=== PATIENT | male | born 1955 | race Caucasian/White ===

== ENCOUNTER → 2019-06-24 | Outpatient (CLI) | payer BC ==
--- NOTE | 2019-06-24 17:12 | CT ---
EXAMINATION TYPE: CT abdomen pelvis wo con DATE OF EXAM: 06/24/2019 COMPARISON: 05/16/2013 HISTORY: 64-year-old male Left side flank pain and dysuria. CT DLP: 1118.3 mGycm. Automated exposure control for dose reduction was used. TECHNIQUE: Contiguous axial scanning of the abdomen and pelvis without IV contrast. Coronal and sagit lynette reconstructions performed. FINDINGS: Heart normal size without pericardial effusion. Coronary vessel calcifications are present. Mild bron chial wall thickening in the visualized lower lungs. Some strandy atelectasis inferior lingula. No pleural effusion. Liver mildly enlarged at 18.9 cm. Noncontrast appearance of the liver, gallbladder, adrenal glands, k idneys, spleen, and atrophic pancreas show no gross abnormality by noncontrast technique. Specifically, no nephrolithiasis or hydronephrosis. No dilated small bowel, free fluid, or free air. No mesenteric or retroperitoneal lymphadenopathy. Normal appendix. Mild stool burden with scattered colonic diverticulosis. Greatest within the sigmoid colon. No pericolonic inflammatory change. Bladder is nondistended. Prostate gland mildly enlarged at 4.9 cm wide. Some surgical material at the right inguinal canal. Pelvic phleboliths. Patulous left inguinal canal, likely fat-containing small left indirect inguinal hernia. No abnormal fluid collection in the pelvis or pelvic lymphadenopathy. Bones: Degenerative changes at the hips. 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 Facet arth ropathy lower lumbar spine. IMPRESSION: 1. Small fat-containing left indirect inguinal hernia. 2. Mild hepatomegaly (18.9 cm). 3. Generalized colonic diverticulosis, greatest in the sigmoid colon. No evidence for acute divertic ulitis. 4. No nephrolithiasis or hydronephrosis.
== END | disposition home or self-care (01) ==
LOC: RADCTMAIN 15:42
PROVIDERS: ATTEND Internal Medicine
DX: K40.90 Unilateral inguinal hernia, without obstruction or gangrene, not specified as recurrent (principal); K57.30 Diverticulosis of large intestine without perforation or abscess without bleeding; R16.0 Hepatomegaly, not elsewhere classified; Z88.8 Allergy status to other drugs, medicaments and biological substances
CPT/HCPCS: 74176

== ENCOUNTER → 2019-11-15 | Outpatient (CLI) | payer BC ==
--- NOTE | 2019-11-15 09:07 | CT ---
EXAMINATION TYPE: CT abdomen pelvis wo con DATE OF EXAM: 11/15/2019 COMPARISON: 06/24/2019 HISTORY: Left sided abdominal pain CT DLP: 1006.2 mGycm Examination of the solid and hollow viscera is limited given the lack of contrast. FINDINGS: LUNG BASES: No evidence for nodule. No evidence for infiltrate. LIVER/GB: The gallbladder is unremarkable. No space-occupying hepatic lesion. PANCREAS: No pancreatic mass identified. No inflammatory process seen. SPLEEN: No evidence for splenomegaly. No intrasplenic lesions seen. ADRENALS: No adrenal nodules identified. No evidence for thickening. KIDNEYS: No evidence for renal mass. No nephrolithiasis. No hydronephrosis. BOWEL: Appendix has a normal appearance. No evidence of bowel obstruction. No inflammatory process. Lymph nodes: No evidence for adenopathy greater than 1 cm. Abdominal aorta: Atheromatous changes seen. No evidence for aneurysm. Genital organs: No significant abnormality. Other: No significant abnormality. IMPRESSION: 1. No evidence for left-sided nephrolithiasis or hydronephrosis. No acute process identified to accou nt for the patient's symptoms.
== END | disposition home or self-care (01) ==
LOC: RADCTMAIN 07:53
PROVIDERS: ATTEND Internal Medicine
DX: R10.9 Unspecified abdominal pain (principal)
CPT/HCPCS: 74176

== ENCOUNTER 2019-11-17 09:06 | Inpatient (IN) | payer BC ==
[2019-11-17] MEDS ORDERED: SODIUM CHLORIDE 0.9% 1,000 ML IV STA (09:34)
--- NOTE | 2019-11-17 09:38 | ED ---
General Adult HPI - General Chief complaint: Neuro Symptoms/Deficit Stated complaint: Facial numbness, dizzy Time Seen by Provider: 11/17/19 09:28 Source: patient, family, RN notes reviewed Mode of arrival: wheelchair Limitations: no limitations - History of Present Illness Initial comments: Patient is a pleasant 6 he 4-year-old male presenting to the emergency Department with chief complaint of paresthesias. Onset of symptoms was close to 2 hours ago. Symptoms have greatly improved however not resolved. Patient has paresthesias of his bilateral face and forehead as well as bilateral hands. Patient does feel a little bit lightheaded. Patient did have some chest discomfort described as an ache that lasted around 15 minutes and has resolved. Patient has associated headache. Headache was not sudden onset and was never severe or even moderate. Headache was only light and is now almost resolved. No associated dyspnea. No leg pain or leg swelling. - Related Data Home Medications Medication Instructions Recorded Confirmed Metoprolol Tartrate [Lopressor] 12.5 mg PO BID 10/28/16 11/17/19 Nitroglycerin Sl Tabs [Nitrostat] 0.4 mg SUBLINGUAL DIRECTED PRN 10/28/16 11/17/19 Aspirin EC [Ecotrin Low Dose] 81 mg PO DAILY 11/17/19 11/17/19 Dapagliflozin Propanediol [Farxiga] 10 mg PO DAILY 11/17/19 11/17/19 Lisinopril [Zestril] 5 mg PO DAILY 11/17/19 11/17/19 Rosuvastatin [Crestor] 10 mg PO HS 11/17/19 11/17/19 Tamsulosin [Flomax] 0.4 mg PO DAILY PRN 11/17/19 11/17/19 cycloSPORINE [Restasis] 1 drop BOTH EYES BID PRN 11/17/19 11/17/19 metFORMIN HCL [metFORMIN HCL ER] 500 mg PO BID 11/17/19 11/17/19 Previous Rx's Medication Instructions Recorded Omeprazole 20 mg PO DAILY #30 cap 04/15/16 Allergies Allergy/AdvReac Type Severity Reaction Status Date / Time No Known Allergies Allergy Verified 11/17/19 10:19 Review of Systems ROS Statement: Those systems with pertinent positive or pertinent negative responses have been documented in the HPI. ROS Other: All systems not noted in ROS Statement are negative. Constitutional: Denies: fever Eyes: Denies: eye pain ENT: Denies: ear pain Respiratory: Denies: cough, dyspnea Cardiovascular: Reports: as per HPI Endocrine: Denies: fatigue Gastrointestinal: Denies: abdominal pain Genitourinary: Denies: dysuria Musculoskeletal: Denies: back pain Skin: Denies: rash Neurological: Reports: as per HPI, paresthesias. Denies: weakness, confusion Past Medical History Past Medical History: Diabetes Mellitus, Eye Disorder, Hyperlipidemia, Hypertension Additional Past Medical History / Comment(s): Recent bronchitis-completed ZPak, NIDDM, cholesterol is alittle high but not on RX yet. History of Any Multi-Drug Resistant Organisms: None Reported Past Surgical History: Hernia Repair, Orthopedic Surgery, Tonsillectomy Additional Past Surgical History / Comment(s): R thumb arthroplasty, Cervical vertebral crushed and surgically repaired, L foot spur removed, L knee arthroscopy, colonoscopy, bilateral eyelid surgery, left cataract removed Past Anesthesia/Blood Transfusion Reactions: No Reported Reaction Past Psychological History: No Psychological Hx Reported Smoking Status: Former smoker Past Alcohol Use History: None Reported Past Drug Use History: Marijuana - Past Family History Father Family Medical History: Vascular Disorder Additional Family Medical History / Comment(s): Father had TB. He is . Mother Family Medical History: Diabetes Mellitus Additional Family Medical History / Comment(s): Mother had TB. She at age 75 yrs. General Exam Limitations: no limitations General appearance: alert, in no apparent distress Head exam: Present: normocephalic Eye exam: Present: normal appearance, PERRL, EOMI. Absent: nystagmus ENT exam: Present: normal oropharynx Neck exam: Present: normal inspection Respiratory exam: Present: normal lung sounds bilaterally Cardiovascular Exam: Present: regular rate, normal rhythm Expanded Peripheral pulses: 2+: Radial (R), Radial (L), Posterior Tibialis (R), Posterior Tibialis (L) GI/Abdominal exam: Present: soft. Absent: distended, tenderness Extremities exam: Present: normal inspection. Absent: pedal edema, calf tenderness Neurological exam: Present: alert, oriented X3, CN II-XII intact. Absent: motor sensory deficit Expanded Neurological exam: Present: protecting the airway Speech: Present: fluid speech Cranial nerves: EOM's Intact: Normal, Facial Sensation: Normal Sensory exam: Upper Extremity Light Touch: Normal, Lower Extremity Light Touch: Normal Motor strength exam: RUE: 5, LUE: 5, RLE: 5, LLE: 5 Eye Response: (4) open spontaneously Motor Response: (6) obeys commands Verbal Response: (5) oriented Psychiatric exam: Present: normal affect, normal mood Skin exam: Present: normal color Course Vital Signs 11/17/19 11/17/19 11/17/19 09:12 09:25 11:18 Temperature 98.2 F 98.8 F Pulse Rate 85 81 67 Respiratory 18 16 16 Rate Blood Pressure 155/82 149/89 136/77 O2 Sat by Pulse 95 93 L 96 Oximetry Medical Decision Making - Medical Decision Making Patient reevaluated and resting comfortably in bed. Patient is near symptom- free. Patient family updated on results and plan. Case discussed in detail with Dr. Rivas, who will admit for Dr. Alvares - Lab Data Result diagrams: 11/17/19 09:55 11/17/19 09:34 Lab Results 11/17/19 11/17/19 11/17/19 Range/Units 09:34 09:34 09:55 WBC 9.1 (3.8-10.6) k/uL RBC 5.07 (4.30-5.90) m/uL Hgb 15.2 (13.0-17.5) gm/dL Hct 45.8 (39.0-53.0) % MCV 90.4 (80.0-100.0) fL MCH 30.0 (25.0-35.0) pg MCHC 33.2 (31.0-37.0) g/dL RDW 12.9 (11.5-15.5) % Plt Count 265 (150-450) k/uL Neutrophils % 74 % Lymphocytes % 20 % Monocytes % 4 % Eosinophils % 1 % Basophils % 1 % Neutrophils # 6.7 (1.3-7.7) k/uL Lymphocytes # 1.8 (1.0-4.8) k/uL Monocytes # 0.4 (0-1.0) k/uL Eosinophils # 0.1 (0-0.7) k/uL Basophils # 0.1 (0-0.2) k/uL PT (9.0-12.0) sec INR (<1.2) APTT (22.0-30.0) sec Sodium 138 (137-145) mmol/L Potassium 4.2 (3.5-5.1) mmol/L Chloride 106 (98-107) mmol/L Carbon Dioxide 23 (22-30) mmol/L Anion Gap 9 mmol/L BUN 18 (9-20) mg/dL Creatinine 0.81 (0.66-1.25) mg/dL Est GFR (CKD-EPI)AfAm >90 (>60 ml/min/1.73 sqM) Est GFR (CKD-EPI)NonAf >90 (>60 ml/min/1.73 sqM) Glucose 235 H (74-99) mg/dL Calcium 9.3 (8.4-10.2) mg/dL Total Bilirubin 0.7 (0.2-1.3) mg/dL AST 27 (17-59) U/L ALT 26 (4-49) U/L Alkaline Phosphatase 81 (38-126) U/L Creatine Kinase 52 L (55-170) U/L Troponin I <0.012 (0.000-0.034) ng/mL Total Protein 6.4 (6.3-8.2) g/dL Albumin 3.7 (3.5-5.0) g/dL 11/17/19 Range/Units 09:55 WBC (3.8-10.6) k/uL RBC (4.30-5.90) m/uL Hgb (13.0-17.5) gm/dL Hct (39.0-53.0) % MCV (80.0-100.0) fL MCH (25.0-35.0) pg MCHC (31.0-37.0) g/dL RDW (11.5-15.5) % Plt Count (150-450) k/uL Neutrophils % % Lymphocytes % % Monocytes % % Eosinophils % % Basophils % % Neutrophils # (1.3-7.7) k/uL Lymphocytes # (1.0-4.8) k/uL Monocytes # (0-1.0) k/uL Eosinophils # (0-0.7) k/uL Basophils # (0-0.2) k/uL PT 10.1 (9.0-12.0) sec INR 0.9 (<1.2) APTT 24.8 (22.0-30.0) sec Sodium (137-145) mmol/L Potassium (3.5-5.1) mmol/L Chloride (98-107) mmol/L Carbon Dioxide (22-30) mmol/L Anion Gap mmol/L BUN (9-20) mg/dL Creatinine (0.66-1.25) mg/dL Est GFR (CKD-EPI)AfAm (>60 ml/min/1.73 sqM) Est GFR (CKD-EPI)NonAf (>60 ml/min/1.73 sqM) Glucose (74-99) mg/dL Calcium (8.4-10.2) mg/dL Total Bilirubin (0.2-1.3) mg/dL AST (17-59) U/L ALT (4-49) U/L Alkaline Phosphatase (38-126) U/L Creatine Kinase (55-170) U/L Troponin I (0.000-0.034) ng/mL Total Protein (6.3-8.2) g/dL Albumin (3.5-5.0) g/dL - Radiology Data Radiology results: report reviewed (computed tomography scan of brain reveals no acute process), image reviewed (Chest x-ray shows no acute intrathoracic abnormality) Disposition Clinical Impression: Chest pain, Paresthesia Disposition: ADMITTED IP TO THIS HOSP Is patient prescribed a controlled substance at d/c from ED?: No Referrals: Paddy Alvares MD [Primary Care Provider] - 1-2 days Decision Time: 11:35
[2019-11-17 10:09] LABS: Basophils # (A) 0.1 k/uL (0-0.2); Basophils % (A) 1 %; Eosinophils # (A) 0.1 k/uL (0-0.7); Eosinophils % (A) 1 %; HCT 45.8 % (39.0-53.0); HGB 15.2 gm/dL (13.0-17.5); Lymphocytes # (A) 1.8 k/uL (1.0-4.8); Lymphocytes % (A) 20 %; MCHC 33.2 g/dL (31.0-37.0); MCV 90.4 fL (80.0-100.0); Mean Platelet Volume 7.1; Monocytes # (A) 0.4 k/uL (0-1.0); Monocytes % (A) 4 %; Neutrophils # (A) 6.7 k/uL (1.3-7.7); Neutrophils % (A) 74 %; Platelet Count 265 k/uL (150-450); RBC 5.07 m/uL (4.30-5.90); RDW 12.9 % (11.5-15.5); WBC 9.1 k/uL (3.8-10.6)
[2019-11-17 10:18] LABS: ALT 26 U/L (4-49); AST 27 U/L (17-59); African American GFR (CKD) >90 (>60 ml/min/1.73 sqM); Albumin 3.7 g/dL (3.5-5.0); Alkaline Phosphatase 81 U/L (38-126); Anion Gap 9 mmol/L; Blood Urea Nitrogen 18 mg/dL (9-20); Calcium 9.3 mg/dL (8.4-10.2); Carbon Dioxide 23 mmol/L (22-30); Chloride 106 mmol/L (98-107); Creatine Kinase 52 U/L (55-170); Glucose 235 mg/dL (74-99); Non-African American GFR(CKD) >90 (>60 ml/min/1.73 sqM); Potassium 4.2 mmol/L (3.5-5.1); Sodium 138 mmol/L (137-145); Total Bilirubin 0.7 mg/dL (0.2-1.3); Total Protein 6.4 g/dL (6.3-8.2)
[2019-11-17 10:25] LABS: INR 0.9 (<1.2); Partial Thromboplastin Time 24.8 sec (22.0-30.0); Prothrombin Time 10.1 sec (9.0-12.0)
--- NOTE | 2019-11-17 10:28 | XR ---
EXAMINATION TYPE: XR chest 2V DATE OF EXAM: 11/17/2019 HISTORY: Chest pain. REFERENCE: Previous study dated 04/13/2016. FINDINGS: The patient has taken a relatively poor inspiration. Allowing for this the lungs appear asia ar. Pleural spaces are clear. The heart is not enlarged. IMPRESSION: ALLOWING FOR POOR INSPIRATION, NO DEFINITE ACUTE INTRATHORACIC ABNORMALITY IS SEEN.
--- NOTE | 2019-11-17 10:32 | CT ---
EXAMINATION TYPE: CT brain wo con DATE OF EXAM: 11/17/2019 COMPARISON: NONE HISTORY: facial numbness bilateral CT DLP: 1070.4 mGycm Automated exposure control for dose reduction was used. FINDINGS: Central structures are midline. There is no evidence of hydrocephalus. No acute focal lesion, mass ef fect or midline shift is seen. I do not see evidence of intracranial blood. Visualized portions of the paranasal sinuses and mastoids are clear. The bony calvarium is intact. IMPRESSION: NO ACUTE INTRACRANIAL ABNORMALITY.
[2019-11-17] MEDS ORDERED: ASPIRIN 81 MG PO STA (11:35)
[2019-11-17] MEDS ORDERED: NITROGLYCERIN SL TABS 0.4 MG TAB SUBLINGUAL PRN ×2 (11:36→14:53)
[2019-11-17] MEDS ORDERED: cycloSPORINE 0.05% OPHTH 0.4 ML DROPERETTE BOTH EYES PRN (14:53)
[2019-11-17] MEDS ORDERED: TAMSULOSIN 0.4 MG CAP.ER.24H PO PRN (14:53)
--- NOTE | 2019-11-17 15:02 | P.HPIM ---
History of Present Illness Patient very pleasant 64-year-old gentleman came in the with complaints of bilateral paresthesias in both arms as well as some hot flashes kind of sensation in the face. His symptoms started today morning and looked up his symptoms online and after the check his blood sugars which are within normal limits and was concerned about TIA or a stroke came to ER. In ER patient did complain of mild pain in the left side of the chest very brief without any diaphoresis nausea lightheadedness, nonpleuritic. 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 Patient denied any orthopnea proximal nocturnal dyspnea Review of Systems REVIEW OF SYSTEMS: CONSTITUTIONAL: No fever, no malaise, no fatigue. HEENT: No recent visual problems or hearing problems. Denied any sore throat. CARDIOVASCULAR: No orthopnea, PND, no palpitations, no syncope. PULMONARY: No shortness of breath, no cough, no hemoptysis. GASTROINTESTINAL: No diarrhea, no nausea, no vomiting, no abdominal pain. NEUROLOGICAL: No headaches, no weakness. HEMATOLOGICAL: Denies any bleeding or petechiae. GENITOURINARY: Denies any burning micturition, frequency, or urgency. MUSCULOSKELETAL/RHEUMATOLOGICAL: Denies any joint pain, swelling, or any muscle pain. ENDOCRINE: Denies any polyuria or polydipsia. The rest of the 14-point review of systems is negative. Past Medical History Past Medical History: Diabetes Mellitus, Eye Disorder, Hyperlipidemia, Hypert ension Additional Past Medical History / Comment(s): Recent bronchitis, NIDDM, History of Any Multi-Drug Resistant Organisms: None Reported Past Surgical History: Heart Catheterization With Stent, Hernia Repair, Orthopedic Surgery, Tonsillectomy Additional Past Surgical History / Comment(s): R thumb arthroplasty, Cervical vertebral crushed and surgically repaired, L foot spur removed, L knee arthr oscopy, colonoscopy, bilateral eyelid surgery, left cataract removed, 2 heart stents Past Anesthesia/Blood Transfusion Reactions: No Reported Reaction Date of Last Stent Placement:: 2015 Past Psychological History: No Psychological Hx Reported Additional Psychological History / Comment(s): Pt resides with his spouse. He is independent. He drives. Smoking Status: Former smoker Past Alcohol Use History: None Reported Additional Past Alcohol Use History / Comment(s): Pt states he started smoking at age 15 yrs. (1970) and quit in 1995. Past Drug Use History: Marijuana Additional Drug Use History / Comment(s): Pt states he will smoke marijuana on occasion. - Past Family History Father Family Medical History: Vascular Disorder Additional Family Medical History / Comment(s): Father had TB. He is . Mother Family Medical History: Diabetes Mellitus Additional Family Medical History / Comment(s): Mother had TB. She at age 75 yrs. Medications and Allergies Home Medications Medication Instructions Recorded Confirmed Type Omeprazole 20 mg PO DAILY #30 cap 04/15/16 11/17/19 Rx Metoprolol Tartrate [Lopressor] 12.5 mg PO BID 10/28/16 11/17/19 History Nitroglycerin Sl Tabs [Nitrostat] 0.4 mg SUBLINGUAL DIRECTED PRN 10/28/16 11/17/19 History Aspirin EC [Ecotrin Low Dose] 81 mg PO DAILY 11/17/19 11/17/19 History Dapagliflozin Propanediol [Farxiga] 10 mg PO DAILY 11/17/19 11/17/19 History Lisinopril [Zestril] 5 mg PO DAILY 11/17/19 11/17/19 History Rosuvastatin [Crestor] 10 mg PO HS 11/17/19 11/17/19 History Tamsulosin [Flomax] 0.4 mg PO DAILY PRN 11/17/19 11/17/19 History cycloSPORINE [Restasis] 1 drop BOTH EYES BID PRN 11/17/19 11/17/19 History metFORMIN HCL [metFORMIN HCL ER] 500 mg PO BID 11/17/19 11/17/19 History Allergies Allergy/AdvReac Type Severity Reaction Status Date / Time No Known Allergies Allergy Verified 11/17/19 10:19 Physical Exam Vitals: Vital Signs Temp Pulse Pulse Resp BP BP Pulse Ox 11/17/19 14:04 96 11/17/19 13:10 98.2 F 61 18 142/87 96 11/17/19 11:18 67 16 136/77 96 11/17/19 09:25 98.8 F 81 16 149/89 93 L 11/17/19 09:12 98.2 F 85 18 155/82 95 Intake and Output 11/16/19 11/17/19 11/17/19 22:59 06:59 14:59 Other: Voiding Method Toilet Weight 106.141 kg PHYSICAL EXAMINATION: GENERAL: The patient is alert and oriented x3, not in any acute distress. Well developed, well nourished. HEENT: Pupils are round and equally reacting to light. EOMI. No scleral icterus. No conjunctival pallor. Normocephalic, atraumatic. No pharyngeal erythema. No thyromegaly. CARDIOVASCULAR: S1 and S2 present. No murmurs, rubs, or gallops. PULMONARY: Chest is clear to auscultation, no wheezing or crackles. ABDOMEN: Soft, nontender, nondistended, normoactive bowel sounds. No palpable organomegaly. MUSCULOSKELETAL: No joint swelling or deformity. EXTREMITIES: No cyanosis, clubbing, or pedal edema. NEUROLOGICAL: Gross neurological examination did not reveal any focal deficits. SKIN: No rashes. Results CBC & Chem 7: 11/17/19 09:55 11/17/19 09:34 Labs: Abnormal Lab Results - Last 24 Hours (Table) 11/17/19 Range/Units 09:34 Glucose 235 H (74-99) mg/dL Creatine Kinase 52 L (55-170) U/L Thrombosis Risk Factor Assmnt - Choose All That Apply Any of the Below Risk Factors Present?: No Other Risk Factors: Yes Assessment and Plan Plan: -Chest pain: Atypical will rule out unstable angina and acute coronary syndromes 2 more sets of troponins and EKGs will be obtained. Both EKG and first set of troponin were negative. Patient's symptomatology is not consistent with stroke patient appears to have peripheral neuropathy from his diabetes with us -Type 2 diabetes mellitus patient was recently started on Farxiga because of which patient was having some stomach upset symptoms and he was wondering wh ether the present symptoms of GERD are related to that because of which patient doesn't want to take this medication and wanted go back on sulfonylureas I will let his primary doctor address this as an outpatient. Patient will be started on sliding scale and continue with metformin here -Diabetic peripheral neuropathy -Hyperlipidemia -Benign prostatic hypertrophy -Coronary artery disease with stent in the past and a stress test about any ago.
[2019-11-17 16:28] LABS: Glucose,Whole Blood 198 mg/dL (75-99)
[2019-11-17] MEDS: INSULIN ASPART (NovoLOG) 100 UNIT/ML VIAL SQ SCH ×2 (16:51→22:02)
[2019-11-17 21:06] LABS: Glucose,Whole Blood 254 mg/dL (75-99)
[2019-11-17] MEDS: METOPROLOL TARTRATE 12.5 MG TAB PO SCH (22:02)
[2019-11-17] MEDS: ATORVASTATIN 20 MG TAB PO SCH (22:02)
[2019-11-17] MEDS: metFORMIN 500 MG TAB PO SCH (22:04)
[2019-11-18 06:36] LABS: Cholesterol 163 mg/dL (<200); HDL Cholesterol 33 mg/dL (40-60); LDL Cholesterol,Calculated 81 mg/dL (0-99); Triglycerides 247 mg/dL (<150)
[2019-11-18 07:04] LABS: Glucose,Whole Blood 195 mg/dL (75-99)
[2019-11-18] MEDS ORDERED: AMINOPHYLLINE 500 MG/20 ML VIAL IV PRN (07:43)
[2019-11-18] MEDS ORDERED: SODIUM CHLORIDE 0.9% IV ONE (07:43)
[2019-11-18] MEDS ORDERED: CAFFEINE CITRATE 60 MG/3 ML VIAL IV PRN (07:43)
[2019-11-18] MEDS ORDERED: DIPYRIDAMOLE IV ONE (07:43)
--- NOTE | 2019-11-18 08:10 | CONS ---
CONSULTATION Mr. Valadez is a 64-year-old male known history of coronary artery disease who presented with tingling in the hand, fullness in the head and brief episode of chest discomfort. He has a known history of coronary artery disease who presented to the hospital in March of 2016 with evidence of chest discomfort. At that time underwent cardiac catheterization that revealed significant obstructive disease involving the LAD and the PLV and underwent successful stenting of both vessels. He has done well from the cardiac standpoint with no symptoms of chest pain. He is followed on a regular basis by Dr. Henson in regard to his cardiac status. Yesterday, he took his Farxiga, but did not have breakfast and subsequently complained a couple hours after tingling in the hand, fullness in the chest and a brief episode of chest discomfort. He has no dyspnea. No dizziness or palpitation. No syncope. No PND, orthopnea, or peripheral edema. Patient is reasonably active physically, but he had a prior history of cervical surgery and recent hernia surgery. According to him, he had a stress test about a year ago that was unremarkable. He has no history of PND, orthopnea, or peripheral edema. No malignant arrhythmia. His coronary risk factors are remarkable for diabetes, hyperlipidemia, and hypertension. He is a nonsmoker. MEDICATIONS: His medications include aspirin, Farxiga, Zestril 5 mg daily, Lopressor 12.5 mg daily, omeprazole 20 mg daily, Crestor 10 mg daily, Flomax 0.4 mg daily, Restasis and metformin 500 mg twice a day. REVIEW OF SYSTEMS: RESPIRATORY SYSTEM: He has no history of documented asthma, emphysema or bronchitis. GI SYSTEM: No recent GI bleed. No peptic ulcer disease. SYSTEM: No dysuria or hematuria. NERVOUS SYSTEM: No history of stroke or seizure. PHYSICAL EXAMINATION: He is a 64-year-old male, alert, oriented, in no apparent distress. Blood pressure 148/80 with the heart rate in the 60s. HEAD: Normocephalic. EYES: Sclerae anicteric. NECK: Good carotid upstroke. No bruit. No jugular venous distention. LUNGS: Clear to auscultation. HEART: Regular rate and rhythm. S1, S2. No S3. No S4. No rub. ABDOMEN: Soft, nontender. Positive bowel sounds. No organomegaly. EXTREMITIES: No edema. Intact distal pulses. LAB DATA: Lab data revealed troponin less than 0.012. BUN and creatinine of 18 and 0.81. Hemoglobin of 15.2. EKG revealed a sinus mechanism with right bundle branch block. IMPRESSION: 1. Tingling in the fingers with paresthesia, most likely related to cervical radiculopathy, could be exacerbated by an episode of hypoglycemia. 2. Episode of chest discomfort, has atypical features for ischemic heart disease probably noncardiac. 3. History of coronary artery disease, status post percutaneous revascularization in 2016. 4. History of hypertension. 5. Hyperlipidemia. 6. Diabetes mellitus. RECOMMENDATION: I would recommend to obtain echocardiogram with Doppler as well as an myocardial perfusion imaging. If there is no evidence of inducible ischemia, then no further cardiac workup will be needed. Those findings and recommendations were discussed with the patient and he is full understanding and agreement. Thank you for this consult. We will follow with you. CARLINE / IJN: [id number] /
[2019-11-18] MEDS ORDERED: ASPIRIN 81 MG PO SCH (09:00)
[2019-11-18] MEDS ORDERED: ASPIRIN 325 MG TAB PO SCH (09:00)
[2019-11-18] MEDS: INSULIN ASPART (NovoLOG) 100 UNIT/ML VIAL SQ SCH ×4 (09:23→20:42)
[2019-11-18] MEDS: METOPROLOL TARTRATE 12.5 MG TAB PO SCH ×2 (11:33→20:41)
[2019-11-18] MEDS: metFORMIN 500 MG TAB PO SCH ×2 (11:34→20:42)
[2019-11-18] MEDS: PANTOPRAZOLE 40 MG TABLET PO SCH (11:34)
[2019-11-18] MEDS: LISINOPRIL 5 MG TAB PO SCH (11:34)
[2019-11-18 12:00] LABS: Glucose,Whole Blood 244 mg/dL (75-99)
--- NOTE | 2019-11-18 12:16 | NM ---
EXAMINATION TYPE: NM stress persantine cardiolit DATE OF EXAM: 11/18/2019 COMPARISON: NONE HISTORY: Chest pain TECHNIQUE: After the intravenous administration of 10.67 mCi Tc 99m Sestamibi - Cardiolite resting S PECT images acquired 65 minutes post injection. The patient received 0.4mg Lexiscan, 26.1 mCi Tc 99m Sestamibi - Stress images obtained [address] injection FINDINGS: Review of stress and rest SPECT images stress-induced decreased perfusion lateral wall and cardiac ap ex felt to reflect stress-induced ischemia. Correlate clinically. Gated analysis shows normal wall mo tion with an estimated left ventricular ejection fraction of 54 %. IMPRESSION: stress-induced decreased perfusion lateral wall and cardiac apex felt to reflect stress-induced ische ruma. Correlate clinically.
[2019-11-18] MEDS ORDERED: ALPRAZolam 0.5 MG TAB PO PRN (12:59)
[2019-11-18] MEDS ORDERED: ALPRAZolam 0.25 MG TAB PO PRN (12:59)
[2019-11-18] MEDS ORDERED: SODIUM CHLORIDE 0.9% 1,000 ML in EMPTY BAG 1 BAG IV ONE (12:59)
--- NOTE | 2019-11-18 13:00 | EST ---
EXERCISE STRESS DATE OF SERVICE: 11/18/2019 AGE: 64 SEX: Male HT: 73" WT: 234 pounds PROTOCOL: Persantine Cardiolite STAGE: DURATION OF EXERCISE: HEART RATE REST: 66 BLOOD PRESSURE REST: 143/88 MAXIMUM HEART RATE ACHIEVED: 93 MAXIMUM BLOOD PRESSURE: 149/92 85% MPHR: 100% MPHR: METS: INDICATIONS: Chest pain. CLINICAL INFORMATION: Baseline rhythm is a sinus mechanism, rate of 66, right bundle branch block. Baseline blood pressure 143/88 mmHg. Patient received an infusion of dipyridamole per protocol. Electrocardiographic monitoring revealed no evidence of diagnostic ischemic ST deviation. Cardiolite was injected at peak infusion. CONCLUSION: 1. Nondiagnostic electrocardiograph stress testing. 2. Nuclear images will be reported separately. MMODL / IJN: [id number] /
--- NOTE | 2019-11-18 14:47 | P.PN ---
Subjective Progress Note Date: 11/18/19 Principal diagnosis: Patient very pleasant 64-year-old gentleman came in the with complaints of bilateral paresthesias in both arms as well as some hot flashes kind of sensation in the face. His symptoms started today morning and looked up his symptoms online and after the check his blood sugars which are within normal limits and was concerned about TIA or a stroke came to ER. In ER patient did complain of mild pain in the left side of the chest very brief without any diaph oresis nausea lightheadedness, nonpleuritic. Because of this patient is being admitted to rule out acute coronary syndromes patient EKG did not show any acute ST-T wave changes there is some) until branch block changes patient had a stress test about any ago with his certified medical biller which did not show any inducible ischemia. Patient denied any orthopnea proximal nocturnal dyspnea. 11/18/2019 Patient is sitting up in bed in no acute distress and underwent a stress test today with cardiology showing stress-induced decreased perfusion of the lateral wall and cardiac apex and possibly refracts some stress-induced ischemia. Patient is scheduled to undergo cardiac catheterization in the morning. Cardiology is following closely. Repeat troponins were negative. Currently patient denies any chest pain, shortness of breath, or palpitations. Patient is afebrile. Patient denies any nausea or vomiting and has been tolerating diet. Blood sugars continue to be slightly elevated and will continue with sliding scale and treat accordingly. Objective - Vital Signs Vital signs: Vital Signs Temp 98.7 F 11/18/19 12:00 Pulse 84 11/18/19 12:00 Resp 18 11/18/19 12:00 BP 146/74 11/18/19 12:00 Pulse Ox 95 11/18/19 12:00 Intake & Output 11/17/19 11/18/19 11/18/19 18:59 06:59 18:59 Weight 106.141 kg 106.14 kg Other: Voiding Method Toilet Toilet Toilet # Voids 1 - Exam GENERAL: The patient is alert and oriented x3, not in any acute distress. Well developed, well nourished. HEENT: Pupils are round and equally reacting to light. EOMI. No scleral icterus. No conjunctival pallor. Normocephalic, atraumatic. No pharyngeal erythema. No thyromegaly. CARDIOVASCULAR: S1 and S2 present. No murmurs, rubs, or gallops. PULMONARY: Chest is clear to auscultation, no wheezing or crackles. ABDOMEN: Soft, nontender, nondistended, normoactive bowel sounds. No palpable organomegaly. MUSCULOSKELETAL: No joint swelling or deformity. EXTREMITIES: No cyanosis, clubbing, or pedal edema. NEUROLOGICAL: Gross neurological examination did not reveal any focal deficits. SKIN: No rashes. - Labs CBC & Chem 7: 11/17/19 09:55 11/17/19 09:34 Labs: Abnormal Lab Results - Last 24 Hours (Table) 11/17/19 11/17/19 11/18/19 Range/Units 16:26 20:55 05:33 POC Glucose (mg/dL) 198 H 254 H (75-99) mg/dL Triglycerides 247 H (<150) mg/dL HDL Cholesterol 33 L (40-60) mg/dL 11/18/19 11/18/19 Range/Units 07:02 11:59 POC Glucose (mg/dL) 195 H 244 H (75-99) mg/dL Triglycerides (<150) mg/dL HDL Cholesterol (40-60) mg/dL Assessment and Plan Assessment: -Chest pain: Atypical will rule out unstable angina and acute coronary syndromes 2 more sets of troponins and EKGs will be obtained. Both EKG and first set of troponin were negative. Patient's symptomatology is not consistent with stroke. patient appears to have peripheral neuropathy from his diabetes mellitus -Type 2 diabetes mellitus patient was recently started on Farxiga because of which patient was having some stomach upset symptoms and he was wondering whether the present symptoms of GERD are related to that because of which patient doesn't want to take this medication and wanted go back on sulfonylureas I will let his primary doctor address this as an outpatient. Patient will be started on sliding scale and continue with metformin here -Diabetic peripheral neuropathy -Hyperlipidemia -Benign prostatic hypertrophy -Coronary artery disease with stent in the past and a stress test about 1 year ago. Plan: Patient underwent stress test showing decreased perfusion of the lateral wall and cardiac apex with some possible stress-induced ischemia and patient will be undergoing a cardiac catheterization in the morning. Cardiology is following closely. Further recommendations to follow. Possible discharge in 24-48 hours.
[2019-11-18 16:36] LABS: Glucose,Whole Blood 252 mg/dL (75-99)
[2019-11-18 18:30] LABS: Hemoglobin A1C 9.7 % (4.0-6.0)
[2019-11-18 20:04] LABS: Glucose,Whole Blood 249 mg/dL (75-99)
[2019-11-18] MEDS: ATORVASTATIN 20 MG TAB PO SCH (20:41)
[2019-11-19] MEDS ORDERED: ASPIRIN 81 MG PO ONE (06:00)
[2019-11-19] MEDS: METOPROLOL TARTRATE 12.5 MG TAB PO SCH (06:30)
[2019-11-19] MEDS: PANTOPRAZOLE 40 MG TABLET PO SCH (06:30)
[2019-11-19] MEDS: LISINOPRIL 5 MG TAB PO SCH (06:30)
[2019-11-19 06:41] LABS: Glucose,Whole Blood 205 mg/dL (75-99)
[2019-11-19] MEDS: metFORMIN 500 MG TAB PO SCH (07:18)
[2019-11-19] MEDS: INSULIN ASPART (NovoLOG) 100 UNIT/ML VIAL SQ SCH ×5 (07:18→20:54)
[2019-11-19] MEDS ORDERED: LIDOCAINE 1% INJ 10MG/ML (20 ML MDV) ONE (07:36)
[2019-11-19] MEDS ORDERED: IV FLUID CONTINUATION 500 ML IV ONE (07:45)
[2019-11-19] MEDS ORDERED: HEPARIN SODIUM 1,000 UN/ML (10ML VL) ONE (07:51)
[2019-11-19] MEDS ORDERED: fentaNYL (PF) 50 MCG/ML 2 ML AMP ONE (07:51)
[2019-11-19] MEDS ORDERED: VERAPAMIL 2.5 MG/ML 2 ML AMP ONE (07:51)
[2019-11-19] MEDS ORDERED: fentaNYL (PF) 50 MCG/ML 2 ML AMP IV ONE (08:12)
[2019-11-19] MEDS ORDERED: LIDOCAINE 1% INJ 10MG/ML (20 ML MDV) SQ ONE (08:15)
[2019-11-19] MEDS ORDERED: VERAPAMIL SYRINGE (5 MG/10 ML) INTRAARTER ONE (08:18)
[2019-11-19] MEDS ORDERED: CLOPIDOGREL 75 MG TAB ONE (08:29)
[2019-11-19] MEDS ORDERED: BIVALIRUDIN BOLUS 250 MG/50 ML IV ONE (08:29)
[2019-11-19] MEDS ORDERED: BIVALIRUDIN 250 MG in SODIUM CHLORIDE 0.9% 50 ML IV ONE (08:30)
[2019-11-19] MEDS ORDERED: CLOPIDOGREL 75 MG TAB PO ONE (08:31)
[2019-11-19] MEDS ORDERED: NITROGLYCERIN 1000MCG/10ML SYRINGE INTRACORON ONE (08:39)
[2019-11-19] MEDS: NITROGLYCERIN 1000MCG/10ML SYRINGE INTRACORON ONE ×2 (08:40→08:52)
[2019-11-19] MEDS ORDERED: IOPAMIDOL-370 125ML BTL INJ ONE (08:41)
[2019-11-19] MEDS ORDERED: ADENOSINE 90 MG in SODIUM CHLORIDE 0.9% 60 ML IVP ONE (08:54)
[2019-11-19] MEDS ORDERED: IOPAMIDOL-370 100ML BTL INJ ONE (09:00)
[2019-11-19] MEDS ORDERED: RX INFO: IV CONTRAST WAS GIVEN 1 EACH MISC MISCELLANE PRN (09:16)
[2019-11-19] MEDS ORDERED: MAG HYDROX/AL HYDROX/SIMETH 30 ML CUP PO PRN (09:16)
[2019-11-19] MEDS ORDERED: NITROGLYCERIN SL TABS 0.4 MG TAB SUBLINGUAL PRN (09:16)
[2019-11-19] MEDS ORDERED: ATROPINE SULFATE 0.1 MG/ML 10ML SYRINGE IV PRN (09:16)
[2019-11-19] MEDS ORDERED: ZOLPIDEM 5 MG TAB PO PRN (09:16)
[2019-11-19] MEDS ORDERED: SODIUM CHLORIDE 0.9% 1,000 ML IV SCH (09:30)
--- NOTE | 2019-11-19 09:32 | CC ---
CARDIAC CATHETERIZATION REPORT Mr. Valadez is a 64-year-old male with known history of coronary artery disease, prior percutaneous revascularization in 2016, who presented with symptoms of chest discomfort and palpitation. Underwent a stress test that revealed evidence of lateral apical wall ischemia. In view of that, recommendation was made regarding cardiac catheterization. The procedure as well as risks and the complications were discussed with the patient who is in full understanding and agreement. PROCEDURE: Patient was brought to operations label clerk in a fasting semi-sedated state after receiving fentanyl and Benadryl and achieving moderate conscious sedated state. Using Xylocaine anesthesia in the Seldinger technique, a 6-[place] Lucian sheath was introduced in the right radial artery. Selective right and left coronary angiography performed using 5-[place] Lucian 3.5 bend right and left Bebo catheter. Multiple views of the coronary artery including hemiaxial views were obtained. Following that, angioplasty and stenting was performed. Following that, using the right guiding catheter, the aortic valve was crossed and left ventricular end-diastolic pressure was calculated. Following that, the catheter and sheaths were removed. Hemostasis was obtained with deployment of a TR band. There was no immediate complication. Patient was returned to his room in stable condition. FINDINGS: LEFT MAIN: This is a short size vessel, large in caliber trifurcating in left circumflex, left anterior descending artery and ramus intermedius. Left main coronary artery has no evidence of high-grade stenosis. LEFT ANTERIOR DESCENDING ARTERY: This is a large-sized vessel reaching to the apex, tapers down distally. The stented segment proximal is patent has a 10% plaque. Distal to the stented segment, there is a 20% plaque. The rest of the vessel has no high- grade stenosis. LEFT CIRCUMFLEX: This is a nondominant vessel giving rise to 2 obtuse marginal branches. The first obtuse marginal branch has an 80% stenosis in the proximal segment. The second obtuse marginal branch has intimal disease of 20% to 30% without any evidence of high-grade stenosis. RAMUS INTERMEDIUS: This is a small size vessel that has no evidence of high-grade stenosis. RIGHT CORONARY ARTERY: This is a large dominant vessel bifurcating distally PDA and posterolateral segment and branches. The right coronary artery in the proximal segment has an eccentric 50% to 60% plaque. The PLV has stented segment. It is patent with no evidence of significant in-stent restenosis. LEFT VENTRICULOGRAM: Left ventriculogram was not performed. HEMODYNAMICS: There was no gradient across the aortic valve. The left ventricular end-diastolic pressure was 12 to 14 mmHg. CONCLUSION: 1. Significant stenosis in the first obtuse marginal branch. 2. Mild disease in the left anterior descending artery. 3. Moderate disease in the right coronary artery. 4. Patent stent to the left anterior descending artery and to the right PLV. 5. Normal left ventricular end-diastolic pressure. RECOMMENDATION: In view of finding anatomy, I recommend proceeding with angioplasty and stenting of the obtuse marginal branch and measurement of the fraction flow reserve in the right coronary artery. Those findings and recommendation were discussed with the patient and he is in full understanding and agreement. MMODL / IJN: [id number] /
[2019-11-19 09:42] LABS: Glucose,Whole Blood 200 mg/dL (75-99)
--- NOTE | 2019-11-19 09:53 | PTCA ---
PERCUTANEOUSTRANS CORORONARY ANGIOGRAPHY Mr. Valadez is a 64-year-old male with known history of coronary artery disease who presented with symptoms of chest discomfort and abnormal myocardial perfusion imaging, underwent cardiac catheterization, was found to have critical stenosis involving the obtuse marginal branch and moderate disease in the right coronary artery. Recommendation was made regarding angioplasty and stenting of the obtuse marginal branch and measurement of the fractional flow reserve in the right coronary artery. The procedures as well as the risks and the complications were discussed with the patient who is in full understanding and agreement. PROCEDURE: A 6-Ukrainian FL 3.5 guiding catheter introduced in the system. The catheter would not cannulate left main that was removed and a 6-Ukrainian EBU 3.75 guiding catheter was introduced. After cannulating the left main, a 0.014 balanced medium weight J-wire was advanced in the first obtuse marginal branch, positioned distally. Then a 2.5 x 12 mm Trek balloon was advanced and one inflation at 8 atmospheres was done. Following that, a 2.5 x 15 mm Xience Iman stent was deployed postdilated at 16 atmospheres. After that, the balloon and the guidewire were withdrawn back in the guiding catheter. Images were obtained and repeated. Those images reveal stable successful stenting. At that point, the guiding catheter, the balloon and the guidewire were removed and a 6- Ukrainian FR3.5 guiding catheter introduced into the system. After cannulating the right coronary ostium, a [employer] Doppler flow wire was advanced and iFR and FFR were measured with infusion of adenosine per protocol. The FFR was 0.96. At that point, the 6- Ukrainian right Bebo was used to cross the aortic valve and pressures were calculated. Following that, catheter and sheaths were removed. Hemostasis was obtained with deployment of a TR band. There was no immediate complication. Patient is returned to his room in stable condition. Of note, the patient received Angiomax per protocol as well as oral loading dose of clopidogrel and intra-arterial verapamil. He had no chest discomfort or significant EKG changes with the inflations. IMPRESSION: 1. Successful stenting of the first obtuse marginal branch with reduction of stenosis from 80% to 0%. 2. Non-hemodynamically significant lesion in the right coronary artery with a fractional flow reserve of 96%. RECOMMENDATION: Patient will be continued on aspirin, Plavix, statin and beta alex. The importance of dual antiplatelet treatment were discussed with the patient and his family and are in full understanding and agreement. Duration of procedure is 49 minutes. MMODL / IJN: [id number] /
--- NOTE | 2019-11-19 09:56 | LTR ---
November 19, 2019 Re: Feliciano Valadez Dear Dr. Alvares: I had the opportunity to perform cardiac catheterization and coronary angioplasty and stenting on Mr. Valadez at [facility] on the 19 of November and a full copy of the procedure note will be forwarded to you. In brief, he underwent successful stenting of his first obtuse marginal branch and measurement of his fractional flow reserve in the right coronary artery that was non-hemodynamically significant. At this time, I will continue present therapy with the present aggressive medical regimen if initiated. Thank you again for allowing me the opportunity to participate in his care. Please feel free to call for any questions. Sincerely yours, MD MAVERICK RosenbergL / HAKANN: [id number] /
--- NOTE | 2019-11-19 11:48 | ECHOF ---
Referral Reason:cad MEASUREMENTS -------- HEIGHT: 185.4 cm WEIGHT: 106.1 kg BP: 146/86 RVIDd: 3.2 cm (< 3.3) IVSd: 1.6 cm (0.6 - 1.1) LVIDd: 4.2 cm (3.9 - 5.3) LVPWd: 1.8 cm (0.6 - 1.1) IVSs: 1.9 cm LVIDs: 2.5 cm LVPWs: 1.7 cm LAESV Index (A-L): 23.76 ml/m Ao Diam: 2.8 cm (2.0 - 3.7) AV Cusp: 1.9 cm (1.5 - 2.6) LA Diam: 3.6 cm (2.7 - 3.8) MV EXCURSION: 11.027 mm (> 18.000) MV EF SLOPE: 53 mm/s (70 - 150) EPSS: 0.8 cm MV E Brayan: 0.56 m/s MV DecT: 266 ms MV A Brayan: 0.74 m/s MV E/A Ratio: 0.76 RAP: 5.00 mmHg RVSP: 16.76 mmHg FINDINGS -------- Sinus rhythm. This was a technically adequate study. The left ventricular size is normal. There is moderate concentric left ventricular hypertrophy. O verall left ventricular systolic function is normal with, an EF between 55 - 60 %. The diastolic fi lling pattern is normal for the age of the patient 7.61. The right ventricle is normal in size. Normal LA size by volume 22+/-6 ml/m2. The right atrial size is normal. Interatrial and interventricular septum intact. The aortic valve is trileaflet, and appears structurally normal. No aortic stenosis or regurgitation. The mitral valve is normal. There is trace mitral regurgitation. Mild tricuspid regurgitation present. There is no evidence of pulmonary hypertension. The right v entricular systolic pressure, as measured by Doppler, is 16.76mmHg. There is no pulmonic regurgitation present. The aortic root size is normal. IVC Not well visulized. There is no pericardial effusion. CONCLUSIONS -------- 1. Sinus rhythm. 2. This was a technically adequate study. 3. The left ventricular size is normal. 4. There is moderate concentric left ventricular hypertrophy. 5. Overall left ventricular systolic function is normal with, an EF between 55 - 60 %. 6. The diastolic filling pattern is normal for the age of the patient 7.61 7. Normal LA size by volume 22+/-6 ml/m2. 8. The aortic valve is trileaflet, and appears structurally normal. No aortic stenosis or regurgitati on. 9. There is trace mitral regurgitation. 10. Mild tricuspid regurgitation present. 11. There is no evidence of pulmonary hypertension. 12. There is no pulmonic regurgitation present. 13. There is no pericardial effusion. STOP ATTACHER: Mila Barnhart RDCS
[2019-11-19 12:10] LABS: Glucose,Whole Blood 253 mg/dL (75-99)
[2019-11-19 13:53] VITALS: BMI 30.9
--- NOTE | 2019-11-19 15:21 | P.PN ---
Subjective 64-year-old admitted to rule out acute coronary syndromes had a positive stress test underwent the cardiac catheterization found to have occlusion of the obtuse marginal branch underwent stenting for that patient had normal ejection fraction. Patient had another lesion in the right coronary artery which isn't hemodynamically insignificant Constitutional: Denied any fatigue denied any fever. Cardio vascular: denied any chest pain, palpitations Gastrointestinal denied any nausea vomiting Pulmonary: Denied any shortness of breath cough Neurologic denied any new focal deficits All inpatient medications were reviewed and appropriate changes in these medications as dictated in the interval history and assessment and plan. Objective - Vital Signs Vital signs: Vital Signs Temp 98.1 F 11/19/19 07:05 Pulse 66 11/19/19 07:05 Resp 18 11/19/19 07:45 BP 158/95 11/19/19 07:05 Pulse Ox 95 11/19/19 07:05 Intake & Output 11/18/19 11/19/19 11/19/19 18:59 06:59 18:59 Intake Total 393 Balance 393 Weight 106.14 kg 106.14 kg Intake: IV 163 Oral 230 Other: Voiding Method Toilet Toilet Toilet # Voids 2 2 1 - Exam PHYSICAL EXAMINATION: GENERAL: The patient is alert and oriented x3, not in any acute distress. Well developed, well nourished. HEENT: Pupils are round and equally reacting to light. EOMI. No scleral icterus. No conjunctival pallor. Normocephalic, atraumatic. No pharyngeal erythema. No thyromegaly. CARDIOVASCULAR: S1 and S2 present. No murmurs, rubs, or gallops. PULMONARY: Chest is clear to auscultation, no wheezing or crackles. ABDOMEN: Soft, nontender, nondistended, normoactive bowel sounds. No palpable organomegaly. MUSCULOSKELETAL: No joint swelling or deformity. EXTREMITIES: No cyanosis, clubbing, or pedal edema. NEUROLOGICAL: Gross neurological examination did not reveal any focal deficits. SKIN: No rashes. - Labs CBC & Chem 7: 11/17/19 09:55 11/17/19 09:34 Labs: Abnormal Lab Results - Last 24 Hours (Table) 11/17/19 11/18/19 11/18/19 Range/Units 21:25 16:34 20:03 POC Glucose (mg/dL) 252 H 249 H (75-99) mg/dL Hemoglobin A1c 9.7 H (4.0-6.0) % 11/19/19 11/19/19 11/19/19 Range/Units 06:38 09:40 11:57 POC Glucose (mg/dL) 205 H 200 H 253 H (75-99) mg/dL Hemoglobin A1c (4.0-6.0) % Assessment and Plan Plan: -Chest pain: Patient had a positive stress test underwent cardiac catheterization with the stenting of first obtuse marginal branch patient was started on With your therapy statin and beta alex. Patient had normal ejection fraction probably can be discharged tomorrow -Type 2 diabetes mellitus patient was recently started on Farxiga because of which patient was having some stomach upset symptoms and he was wondering whether the present symptoms of GERD are related to that because of which patient doesn't want to take this medication and wanted go back on sulfonylureas I will let his primary doctor address this as an outpatient. Patient will be started on sliding scale and continue with metformin here -Diabetic peripheral neuropathy -Hyperlipidemia -Benign prostatic hypertrophy -Coronary artery disease with stent in the past
[2019-11-19 17:20] LABS: Glucose,Whole Blood 292 mg/dL (75-99)
[2019-11-19 20:35] LABS: Glucose,Whole Blood 210 mg/dL (75-99)
[2019-11-19] MEDS: METOPROLOL TARTRATE 25 MG TAB PO SCH (20:54)
[2019-11-19] MEDS ORDERED: ATORVASTATIN 40 MG TAB PO SCH (21:00)
[2019-11-20 06:21] LABS: Glucose,Whole Blood 218 mg/dL (75-99)
[2019-11-20] MEDS: INSULIN ASPART (NovoLOG) 100 UNIT/ML VIAL SQ SCH (06:26)
[2019-11-20 06:48] LABS: African American GFR (CKD) >90 (>60 ml/min/1.73 sqM); Anion Gap 9 mmol/L; Blood Urea Nitrogen 11 mg/dL (9-20); Carbon Dioxide 22 mmol/L (22-30); Chloride 107 mmol/L (98-107); Glucose 233 mg/dL (74-99); Non-African American GFR(CKD) >90 (>60 ml/min/1.73 sqM); Potassium 4.1 mmol/L (3.5-5.1); Sodium 138 mmol/L (137-145)
[2019-11-20] MEDS ORDERED: CLOPIDOGREL 75 MG TAB PO SCH (09:00)
[2019-11-20] MEDS ORDERED: ASPIRIN 81 MG PO SCH ×2 (09:00)
[2019-11-20] MEDS: METOPROLOL TARTRATE 25 MG TAB PO SCH (10:11)
[2019-11-20] MEDS: PANTOPRAZOLE 40 MG TABLET PO SCH (10:11)
[2019-11-20] MEDS: LISINOPRIL 5 MG TAB PO SCH (10:12)
[2019-11-20 11:12] VITALS: BP 126/83; PULSE 83; RESP 18; TEMP 98.2
--- NOTE | 2019-11-20 14:09 | PN ---
PROGRESS NOTE Mr. Valadez is a 64-year-old male with history of coronary artery disease who presented with symptoms of chest discomfort, underwent a myocardial perfusion imaging that revealed lateral wall ischemia, underwent cardiac catheterization, was found to have critical stenosis involving the obtuse marginal branch and underwent stenting of that vessel. He had a borderline lesion in the proximal mid segment of the RCA and underwent an an FFR measurement that showed a non-hemodynamic significant lesion. He is feeling well this morning. He denies any chest pain. His breathing has been stable. He denies any dizziness or palpitation. He has been ambulating without difficulty. He continues to be on aspirin once a day, Plavix 75 mg daily, Lipitor 40 mg daily, lisinopril 5 mg daily, metoprolol tartrate 25 mg twice a day, tamsulosin. PHYSICAL EXAMINATION: Blood pressure 134/80 with a heart rate in the 70s. LUNGS: Clear. HEART: Regular rate and rhythm, S1, S2. No S3. No rub. ABDOMEN: Soft, nontender. EXTREMITIES: No edema. Right radial pulse intact. LAB DATA: EKG reveals sinus mechanism with no acute ST-segment changes. His BUN and creatinine 11 and 0.72. Potassium 4.1. IMPRESSION: 1. Status post stenting of the left circumflex obtuse marginal branch. 2. Patent left anterior descending coronary artery stent and right PLV with moderate disease in the right coronary artery. 3. Hypertension. 4. Hyperlipidemia. 5. Diabetes mellitus. RECOMMENDATIONS: The patient will be able to be discharged home today. He will follow up as an outpatient with Dr. Henson who is his primary box builder. MMSCOTTYL / HAKANN: [id number] /
== END 2019-11-20 11:30 | disposition home or self-care (01) | DRG 247 ==
LOC: EC 09:06 → 1SOBS 11:36 → OBSVTOIN 11-18 18:57 → 3SCARD 11-19 09:05
PROVIDERS: ADMIT Internal Medicine; ATTEND Internal Medicine
PROC: 027034Z Dilation of Coronary Artery, One Artery with Drug-eluting Intraluminal Device, Percutaneous Approach (ICD-10-PCS; principal; 2019-11-19 07:45)
PROC: 4A023N7 Measurement of Cardiac Sampling and Pressure, Left Heart, Percutaneous Approach (ICD-10-PCS; 2019-11-19 07:45)
PROC: B2111ZZ Fluoroscopy of Multiple Coronary Arteries using Low Osmolar Contrast (ICD-10-PCS; 2019-11-19 07:45)
DX: I25.10 Atherosclerotic heart disease of native coronary artery without angina pectoris (principal); I10 Essential (primary) hypertension; E11.42 Type 2 diabetes mellitus with diabetic polyneuropathy; M54.12 Radiculopathy, cervical region; E78.5 Hyperlipidemia, unspecified; N40.0 Benign prostatic hyperplasia without lower urinary tract symptoms; Z79.02 Long term (current) use of antithrombotics/antiplatelets; Z79.82 Long term (current) use of aspirin; Z79.899 Other long term (current) drug therapy; Z79.84 Long term (current) use of oral hypoglycemic drugs; Z87.891 Personal history of nicotine dependence; Z83.3 Family history of diabetes mellitus
CPT/HCPCS: 36415; 70450; 71046; 78452; 80048; 80053; 80061; 82550; 83036; 84484; 85025; 85347; 85610; 85730; 93005; 93017; 93306; 93458; 93571; 96360; 96361; 99285; C1874

== ENCOUNTER 2019-11-25 14:17 | Observation (INO) | payer BC ==
[2019-11-25] MEDS ORDERED: ASPIRIN 81 MG PO STA (15:00)
[2019-11-25] MEDS ORDERED: NITROGLYCERIN OINT 1 INCH/GM PACKET TOPICAL STA (15:00)
[2019-11-25] MEDS ORDERED: LORazepam 2 MG/ML INJ IV STA (15:01)
[2019-11-25 15:27] LABS: Basophils % (A) 0 %; Eosinophils # (A) 0.1 k/uL (0-0.7); Eosinophils % (A) 2 %; HCT 44.1 % (39.0-53.0); Lymphocytes # (A) 1.8 k/uL (1.0-4.8); Lymphocytes % (A) 23 %; MCH 30.5 pg (25.0-35.0); MCHC 33.9 g/dL (31.0-37.0); MCV 89.9 fL (80.0-100.0); Mean Platelet Volume 6.6; Monocytes # (A) 0.5 k/uL (0-1.0); Monocytes % (A) 6 %; Neutrophils # (A) 5.3 k/uL (1.3-7.7); Neutrophils % (A) 68 %; Platelet Count 303 k/uL (150-450); RBC 4.91 m/uL (4.30-5.90); RDW 12.9 % (11.5-15.5); WBC 7.9 k/uL (3.8-10.6)
[2019-11-25 15:37] LABS: Partial Thromboplastin Time 26.1 sec (22.0-30.0); Prothrombin Time 10.4 sec (9.0-12.0)
[2019-11-25 15:40] LABS: ALT 21 U/L (4-49); AST 23 U/L (17-59); African American GFR (CKD) >90 (>60 ml/min/1.73 sqM); Albumin 3.8 g/dL (3.5-5.0); Alkaline Phosphatase 86 U/L (38-126); Anion Gap 9 mmol/L; Blood Urea Nitrogen 13 mg/dL (9-20); Calcium 9.4 mg/dL (8.4-10.2); Carbon Dioxide 23 mmol/L (22-30); Chloride 108 mmol/L (98-107); Glucose 179 mg/dL (74-99); Magnesium 1.8 mg/dL (1.6-2.3); Non-African American GFR(CKD) 90 (>60 ml/min/1.73 sqM); Potassium 4.5 mmol/L (3.5-5.1); Sodium 140 mmol/L (137-145); Total Bilirubin 0.5 mg/dL (0.2-1.3); Total Protein 6.6 g/dL (6.3-8.2)
--- NOTE | 2019-11-25 15:45 | CT ---
EXAMINATION TYPE: CT brain wo con DATE OF EXAM: 11/25/2019 HISTORY: Left sided numbness and weakness. CT DLP: 1117.4 mGycm. Automated Exposure Control for Dose Reduction was Utilized. TECHNIQUE: CT scan of the head is performed without contrast. COMPARISON: CT brain 8 days ago.. FINDINGS: There is no acute intracranial hemorrhage or midline shift identified. There is diffuse v entricular and sulcal prominence consistent with diffuse cerebral atrophy prominent over the bilatera l frontal lobes. There is low-attenuation in the periventricular white matter consistent with chroni c small vessel ischemic change. Patchy opacity right mastoid air cells remains present. Right-sided m astoiditis cannot be excluded. The globes are intact and the visualized sinuses are clear. IMPRESSION: No acute intracranial hemorrhage or midline shift. There is mild diffuse cerebral atrop hy and chronic small vessel ischemic change redemonstrated. No significant change from prior.
--- NOTE | 2019-11-25 16:37 | XR ---
EXAMINATION TYPE: XR chest 2V DATE OF EXAM: 11/25/2019 COMPARISON: 11/17/2019 HISTORY: Chest pain There is no heart failure nor confluent pneumonic infiltrate. There is poor inspiration. There are ch est leads. There is no evidence of pleural effusion. IMPRESSION: Poor inspiration that is slightly worse than last exam. Normal heart.
--- NOTE | 2019-11-25 17:51 | ED ---
General Adult HPI - General Chief complaint: Neuro Symptoms/Deficit Stated complaint: lt sided numbness Time Seen by Provider: 11/25/19 14:53 Source: patient Mode of arrival: wheelchair Limitations: no limitations - History of Present Illness Initial comments: This 64-year-old white male since with a complaint of some paresthesias. He states that these are primarily in the perioral region, to the left face, and the left upper extremity. He states that he had similar symptoms approximately one week ago and this led to him being admitted to the hospital, having a stress test for which she failed and then having a heart catheterization and subsequent stent in his obtuse marginal branch. His symptoms started this morning. He relates that he's been doing well otherwise until this morning. The patient did have some very slight sharp chest pain lasting 1 second to the left chest. He denies any ability with breathing. He does relate a fair amount of stress and anxiety. He's had multiple surgeries this year and just had the stent to his heart last week. - Related Data Home Medications Medication Instructions Recorded Confirmed Aspirin EC [Ecotrin Low Dose] 81 mg PO DAILY 11/17/19 11/25/19 Lisinopril [Zestril] 5 mg PO HS 11/17/19 11/25/19 Tamsulosin [Flomax] 0.4 mg PO DAILY PRN 11/17/19 11/25/19 cycloSPORINE [Restasis] 1 drop BOTH EYES BID PRN 11/17/19 11/25/19 Glimepiride [Amaryl] 1 mg PO BID 11/25/19 11/25/19 Previous Rx's Medication Instructions Recorded Omeprazole 20 mg PO DAILY #30 cap 04/15/16 Clopidogrel [Plavix] 75 mg PO DAILY #30 tab 11/20/19 Metoprolol Tartrate [Lopressor] 25 mg PO BID #60 tab 11/20/19 Nitroglycerin Sl Tabs [Nitrostat] 0.4 mg SUBLINGUAL DIRECTED PRN 11/20/19 #30 tab Rosuvastatin [Crestor] 20 mg PO HS #0 11/20/19 metFORMIN HCL [metFORMIN HCL ER] 1,000 mg PO BID #0 11/20/19 Allergies Allergy/AdvReac Type Severity Reaction Status Date / Time No Known Allergies Allergy Verified 11/25/19 15:37 Review of Systems ROS Statement: Those systems with pertinent positive or pertinent negative responses have been documented in the HPI. ROS Other: All systems not noted in ROS Statement are negative. Past Medical History Past Medical History: Coronary Artery Disease (CAD), Diabetes Mellitus, Eye Disorder, Hyperlipidemia, Hypertension Additional Past Medical History / Comment(s): Recent bronchitis, NIDDM, History of Any Multi-Drug Resistant Organisms: None Reported Past Surgical History: Heart Catheterization With Stent, Hernia Repair, Orthopedic Surgery, Tonsillectomy Additional Past Surgical History / Comment(s): R thumb arthroplasty, Cervical vertebral crushed and surgically repaired, L foot spur removed, L knee arthroscopy, colonoscopy, bilateral eyelid surgery, left cataract removed, 2 heart stents Past Anesthesia/Blood Transfusion Reactions: No Reported Reaction Date of Last Stent Placement:: 2015 Past Psychological History: No Psychological Hx Reported Smoking Status: Former smoker Past Alcohol Use History: None Reported Past Drug Use History: Marijuana - Past Family History Father Family Medical History: Vascular Disorder Additional Family Medical History / Comment(s): Father had TB. He is . Mother Family Medical History: Diabetes Mellitus Additional Family Medical History / Comment(s): Mother had TB. She at age 75 yrs. General Exam - General Exam Comments Initial Comments: GENERAL: The patient is well nourished and well hydrated. VITAL SIGNS: Heart rate, blood pressure, respiratory rate reviewed as recorded in nurse's notes. EYES: Pupils are round and reactive. Extraocular movements are intact. No conjunctival / lid redness or swelling. ENT: No external evidence of injury, swelling, or ecchymosis. Airway is patent. Throat is clear. NECK: Nontender. No swelling or evidence of injury. No subcutaneous emphysema. Trachea is midline. No thyroid mass. HEART: Regular rate and rhythm. Good peripheral pulses. LUNGS/CHEST: Breath sounds clear and equal bilaterally. No rales, rhonchi, or wheezes. No ecchymosis, subcutaneous emphysema, or tenderness. ABDOMEN: Abdomen soft without tenderness. No palpable masses or organomegaly. No peritoneal signs. No abdominal wall swelling or ecchymosis. EXTREMITIES: No extremity tenderness. Normal muscle tone and function. No thoracolumbar tenderness. NEUROLOGIC: Sensation is grossly intact. Cranial nerve exam reveals face is symmetrical, tongue is midline, speech is clear. SKIN: No abrasions or ecchymosis is noted. No induration or masses noted. PSYCHIATRIC: Alert and oriented. Appears anxious at times. Limitations: no limitations Course Vital Signs 11/25/19 11/25/19 14:18 14:21 Temperature 98.0 F Pulse Rate 82 76 Respiratory 20 20 Rate Blood Pressure 182/107 144/82 O2 Sat by Pulse 96 96 Oximetry Medical Decision Making - Medical Decision Making The patient was seen and examined. All diagnostics were reviewed. An IV was established and he receives Ativan 1 mg IV, Nitropaste, and aspirin. He is feeling remarkably improved on recheck. The patient also had an EKG which shows a normal sinus rhythm at a rate of 84. There is a right bundle-branch block with associated ST-T wave changes which are unchanged as compared to previous EKG. The DE intervals 152, QRS duration is 156, and the QTc interval is 501. The chest x-ray does not show any acute process. Due to the paresthesias, the patient did have a computed tomography scan of the brain which does not show any acute abnormalities. The laboratory is unremarkable other than slight hyperg lycemia. Cardiology has been paged and we are currently awaiting their call back. The case is discussed with nurse practitioner with Dr. Rocha and she is agreeable with admission with cardiology to consult. The patient relates that these symptoms are similar to his previous episode prior his stent. Overall, is felt as though there may be a moderately significant degree of anxiety playing a role as well. - Lab Data Result diagrams: 11/25/19 14:48 11/25/19 14:48 Lab Results 11/25/19 11/25/19 11/25/19 Range/Units 14:48 14:48 14:48 WBC 7.9 (3.8-10.6) k/uL RBC 4.91 (4.30-5.90) m/uL Hgb 15.0 (13.0-17.5) gm/dL Hct 44.1 (39.0-53.0) % MCV 89.9 (80.0-100.0) fL MCH 30.5 (25.0-35.0) pg MCHC 33.9 (31.0-37.0) g/dL RDW 12.9 (11.5-15.5) % Plt Count 303 (150-450) k/uL Neutrophils % 68 % Lymphocytes % 23 % Monocytes % 6 % Eosinophils % 2 % Basophils % 0 % Neutrophils # 5.3 (1.3-7.7) k/uL Lymphocytes # 1.8 (1.0-4.8) k/uL Monocytes # 0.5 (0-1.0) k/uL Eosinophils # 0.1 (0-0.7) k/uL Basophils # 0.0 (0-0.2) k/uL PT 10.4 (9.0-12.0) sec INR 1.0 (<1.2) APTT 26.1 (22.0-30.0) sec Sodium 140 (137-145) mmol/L Potassium 4.5 (3.5-5.1) mmol/L Chloride 108 H (98-107) mmol/L Carbon Dioxide 23 (22-30) mmol/L Anion Gap 9 mmol/L BUN 13 (9-20) mg/dL Creatinine 0.90 (0.66-1.25) mg/dL Est GFR (CKD-EPI)AfAm >90 (>60 ml/min/1.73 sqM) Est GFR (CKD-EPI)NonAf 90 (>60 ml/min/1.73 sqM) Glucose 179 H (74-99) mg/dL Calcium 9.4 (8.4-10.2) mg/dL Magnesium 1.8 (1.6-2.3) mg/dL Total Bilirubin 0.5 (0.2-1.3) mg/dL AST 23 (17-59) U/L ALT 21 (4-49) U/L Alkaline Phosphatase 86 (38-126) U/L Troponin I (0.000-0.034) ng/mL Total Protein 6.6 (6.3-8.2) g/dL Albumin 3.8 (3.5-5.0) g/dL 11/25/19 Range/Units 14:48 WBC (3.8-10.6) k/uL RBC (4.30-5.90) m/uL Hgb (13.0-17.5) gm/dL Hct (39.0-53.0) % MCV (80.0-100.0) fL MCH (25.0-35.0) pg MCHC (31.0-37.0) g/dL RDW (11.5-15.5) % Plt Count (150-450) k/uL Neutrophils % % Lymphocytes % % Monocytes % % Eosinophils % % Basophils % % Neutrophils # (1.3-7.7) k/uL Lymphocytes # (1.0-4.8) k/uL Monocytes # (0-1.0) k/uL Eosinophils # (0-0.7) k/uL Basophils # (0-0.2) k/uL PT (9.0-12.0) sec INR (<1.2) APTT (22.0-30.0) sec Sodium (137-145) mmol/L Potassium (3.5-5.1) mmol/L Chloride (98-107) mmol/L Carbon Dioxide (22-30) mmol/L Anion Gap mmol/L BUN (9-20) mg/dL Creatinine (0.66-1.25) mg/dL Est GFR (CKD-EPI)AfAm (>60 ml/min/1.73 sqM) Est GFR (CKD-EPI)NonAf (>60 ml/min/1.73 sqM) Glucose (74-99) mg/dL Calcium (8.4-10.2) mg/dL Magnesium (1.6-2.3) mg/dL Total Bilirubin (0.2-1.3) mg/dL AST (17-59) U/L ALT (4-49) U/L Alkaline Phosphatase (38-126) U/L Troponin I 0.015 (0.000-0.034) ng/mL Total Protein (6.3-8.2) g/dL Albumin (3.5-5.0) g/dL Disposition Clinical Impression: Chest pain, History of heart artery stent, Paresthesias, Hypertension, Anxiety Disposition: ADMITTED IP TO THIS [facility] Condition: Good Is patient prescribed a controlled substance at d/c from ED?: No Time of Disposition: 19:27 Decision Date: 11/25/19 Decision Time: 19:27
[2019-11-25] MEDS ORDERED: ALPRAZolam 0.5 MG TAB PO PRN (19:28)
[2019-11-25] MEDS ORDERED: NITROGLYCERIN SL TABS 0.4 MG TAB SUBLINGUAL PRN ×2 (19:28→19:30)
[2019-11-25] MEDS ORDERED: TAMSULOSIN 0.4 MG CAP.ER.24H PO PRN (19:30)
[2019-11-25] MEDS ORDERED: cycloSPORINE 0.05% OPHTH 0.4 ML DROPERETTE BOTH EYES PRN (19:30)
[2019-11-25] MEDS ORDERED: ATORVASTATIN 40 MG TAB PO SCH (21:00)
[2019-11-25] MEDS ORDERED: LISINOPRIL 5 MG TAB PO SCH (21:00)
[2019-11-25] MEDS: METOPROLOL TARTRATE 25 MG TAB PO SCH (21:34)
[2019-11-25] MEDS: metFORMIN 500 MG TAB PO SCH (21:34)
[2019-11-25] MEDS: GLIMEPIRIDE 1 MG TAB PO SCH (21:34)
[2019-11-26] MEDS: NITROGLYCERIN OINT 1 INCH/GM PACKET TOPICAL SCH ×2 (00:12→07:02)
[2019-11-26 04:26] LABS: Cholesterol 139 mg/dL (<200); HDL Cholesterol 32 mg/dL (40-60); LDL Cholesterol,Calculated 69 mg/dL (0-99); Triglycerides 189 mg/dL (<150)
[2019-11-26] MEDS ORDERED: PANTOPRAZOLE 40 MG TABLET PO SCH (07:30)
[2019-11-26] MEDS ORDERED: ACETAMINOPHEN TAB 325 MG TAB PO STA (08:46)
[2019-11-26] MEDS: METOPROLOL TARTRATE 25 MG TAB PO SCH (08:50)
[2019-11-26] MEDS: metFORMIN 500 MG TAB PO SCH (08:50)
[2019-11-26] MEDS ORDERED: ASPIRIN 81 MG PO SCH (09:00)
[2019-11-26] MEDS ORDERED: CLOPIDOGREL 75 MG TAB PO SCH (09:00)
[2019-11-26] MEDS ORDERED: ASPIRIN 325 MG TAB PO SCH (09:00)
[2019-11-26] MEDS ORDERED: ENOXAPARIN 40 MG/0.4 ML SYRINGE SQ SCH (09:00)
[2019-11-26 09:05] VITALS: BP 114/70; PULSE 71; RESP 16; TEMP 97.9
--- NOTE | 2019-11-26 09:26 | CONS ---
CONSULTATION Mr. Valadez is a 64-year-old male who is followed by Dr. Henson. From the cardiology standpoint, has a known history of coronary artery disease who was recently admitted to the hospital with symptoms of arm numbness and face numbness, with a vague chest discomfort. He underwent stress test that revealed evidence of inducible ischemia. The patient had a prior stenting of the LAD in the right PLV in 2016. His stress test came back abnormal and underwent cardiac catheterization, was found to have obstructive disease in the obtuse marginal branch that was stenting and had fractional flow reserve of the right coronary artery that was unremarkable. The patient presented again to the hospital because yesterday he had numbness in the face with headache and he had some discomfort in the chest that was brief and sharp. He had no dyspnea. No palpitation. No syncope. No PND, no orthopnea, and no peripheral edema. His coronary risk factors are remarkable for diabetes, hypertension, hyperlipidemia. He is a nonsmoker. During his last hospitalization, he had an echocardiogram that showed a preserved ventricular size and systolic function. On his cardiac catheterization, he had mild disease in the LAD, moderate disease in the right coronary artery with patent stent to the LAD and the right PLV. His medication at home included metformin 1 g twice a day, tamsulosin 0.4 mg on a p.r.n. basis, Crestor 20 mg daily, omeprazole, metoprolol tartrate 25 mg twice a day, Zestril 5 mg daily, glimepiride 1 mg twice a day, Plavix 75 mg daily, and aspirin once a day. REVIEW OF SYSTEMS: RESPIRATORY SYSTEM: He has no recent wheezing. No cough. No history of obstructive lung disease. GI SYSTEM: No recent GI bleed. No peptic ulcer disease. SYSTEM: No dysuria or hematuria. NERVOUS SYSTEM: No stroke or seizure. PHYSICAL EXAMINATION: A 64-year-old male, alert, oriented, in no apparent distress. Blood pressure 110/60 with a heart rate in the 70s. LUNGS: Clear. HEART: Regular and rhythm, S1, S2. No S3. No rub. ABDOMEN: Soft, nontender, positive bowel sounds, no organomegaly. EXTREMITIES: No edema, intact distal pulses. LAB DATA: Revealed troponin 0.015, 0.017, less than 0.012. BUN and creatinine 13 and 0.9, potassium 4.5, hemoglobin of 15, cholesterol 139, LDL of 69. EKG revealed a sinus mechanism with right bundle branch block, evidence to suggest prior inferior myocardial infarction with left axis deviation. Compared with an EKG that was done during last admission, there are no acute changes. He underwent a brain CT that revealed chronic small-vessel disease. His chest x-ray shows no infiltrate. IMPRESSION: 1. Face numbness, atypical for ischemic heart disease, non-cardiac. 2. Chest discomfort. No evidence to suggest acute coronary artery syndrome or stent thrombosis. 3. Status post recent stenting. 4. Hypertension. 5. Hyperlipidemia. 6. Diabetes mellitus. RECOMMENDATION: From the cardiac standpoint, no cardiac workup is needed at this time. 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 Thank you for this consult. Will follow with you. CARLINE / VASYL: [id number] /
[2019-11-26 09:39] LABS: Glucose,Whole Blood 248 mg/dL (75-99)
[2019-11-26] MEDS: GLIMEPIRIDE 1 MG TAB PO SCH (10:19)
--- NOTE | 2019-12-15 19:45 | P.HPIM ---
History of Present Illness H&P Date: 11/26/19 Chief Complaint: Left facial numbness Patient is a 64-year-old male with a known history of coronary artery disease status post stent 2 placement recently, diabetes type 2, hypertension, hyperlipidemia, cervical vertebral crush injury surgically repaired, previous history of smoking and marijuana use came to ER with complaints of left-sided facial numbness and paresthesias. Patient did have cardiac catheterization and stent placement last Monday. Paresthesias are mainly in the perioral region and to the left side of the face and upper extremity sometimes. Patient was admitted to the hospital with similar complaints about a week ago and had stress test followed by cardiac catheterization and subsequent stent placement in his obtuse marginal branch. Patient has been having symptoms since morning. Denied any focal weakness. No facial droop or dysarthria. Patient also did have sharp left-sided chest pain lasting for a few seconds this morning but since resolved now. Denied any difficulty in breathing. Denied any leg weakness or swelling. No orthopnea no PND. Patient says that he was anxious. Denied any recent marijuana use. Chest x-ray showed poor inspiration which is worse than previous study. CT head showed no acute process. Chronic small vessel ischemic changes noted. Troponin 3 negative Review of Systems Constitutional: Patient denies any fever or chills . No generalized weakness or weight loss. Abdomen: Patient denied nausea vomiting and diarrhea and abdominal pain. Cardiovascular: Patient denies any chest pain or short of breath no palpitations. Respiratory: patient denied any cough is from production. No shortness of breath Neurologic: Patient denied any numbness or tingling headache. Left-sided facial numbness Musculoskeletal: Patient denies any complaints of joint swelling or deformity. Skin: Negative Psychiatric: Negative Endocrine: No heat or cold intolerance. No recent weight gain. Genitourinary: No dysuria or hematuria. All other 14 point ROS negative except the above Past Medical History Past Medical History: Coronary Artery Disease (CAD), Diabetes Mellitus, Eye Disorder, Hyperlipidemia, Hypertension Additional Past Medical History / Comment(s): Recent bronchitis, NIDDM, History of Any Multi-Drug Resistant Organisms: None Reported Past Surgical History: Heart Catheterization With Stent, Hernia Repair, Orthopedic Surgery, Tonsillectomy Additional Past Surgical History / Comment(s): R thumb arthroplasty, Cervical vertebral crushed and surgically repaired, L foot spur removed, L knee arthroscopy, colonoscopy, bilateral eyelid surgery, left cataract removed, 2 heart stents Past Anesthesia/Blood Transfusion Reactions: No Reported Reaction Date of Last Stent Placement:: 2015 Past Psychological History: No Psychological Hx Reported Smoking Status: Former smoker Past Alcohol Use History: None Reported Past Drug Use History: Marijuana - Past Family History Father Family Medical History: Vascular Disorder Additional Family Medical History / Comment(s): Father had TB. He is . Mother Family Medical History: Diabetes Mellitus Additional Family Medical History / Comment(s): Mother had TB. She at age 75 yrs. Medications and Allergies Home Medications Medication Instructions Recorded Confirmed Type Omeprazole 20 mg PO DAILY #30 cap 04/15/16 11/25/19 Rx Aspirin EC [Ecotrin Low Dose] 81 mg PO DAILY 11/17/19 11/25/19 History Lisinopril [Zestril] 5 mg PO HS 11/17/19 11/25/19 History Tamsulosin [Flomax] 0.4 mg PO DAILY PRN 11/17/19 11/25/19 History cycloSPORINE [Restasis] 1 drop BOTH EYES BID PRN 11/17/19 11/25/19 History Clopidogrel [Plavix] 75 mg PO DAILY #30 tab 11/20/19 11/25/19 Rx Metoprolol Tartrate [Lopressor] 25 mg PO BID #60 tab 11/20/19 11/25/19 Rx Nitroglycerin Sl Tabs [Nitrostat] 0.4 mg SUBLINGUAL DIRECTED PRN 11/20/19 11/25/19 Rx #30 tab Rosuvastatin [Crestor] 20 mg PO HS #0 11/20/19 11/25/19 Rx metFORMIN HCL [metFORMIN HCL ER] 1,000 mg PO BID #0 11/20/19 11/25/19 Rx Glimepiride [Amaryl] 1 mg PO BID 11/25/19 11/25/19 History Allergies Allergy/AdvReac Type Severity Reaction Status Date / Time No Known Allergies Allergy Verified 11/25/19 15:37 Physical Exam Vitals: Vital Signs Temp Pulse Pulse Resp BP BP Pulse Ox 11/26/19 09:25 71 16 114/70 97 11/26/19 08:00 97.9 F 71 16 114/70 96 11/26/19 07:49 97.8 F 76 18 110/66 100 12/31/19 04:30 69 18 111/67 96 11/26/19 03:00 77 18 95/71 95 11/26/19 02:00 64 19 111/70 95 11/26/19 00:00 68 18 119/84 95 11/25/19 23:30 68 18 122/81 95 11/25/19 23:00 67 16 117/78 96 11/25/19 22:30 74 18 112/77 95 11/25/19 22:00 69 20 96 11/25/19 21:30 77 20 116/75 96 11/25/19 21:00 70 20 107/59 96 11/25/19 20:30 87 18 106/66 96 11/25/19 20:00 86 16 121/78 96 11/25/19 19:30 84 16 121/71 96 11/25/19 19:00 81 20 125/89 97 11/25/19 18:30 87 17 130/86 96 11/25/19 18:00 84 20 128/92 95 11/25/19 17:30 86 20 139/81 96 11/25/19 17:21 68 20 110/65 96 11/25/19 17:00 88 18 143/91 96 11/25/19 16:30 20 132/90 96 11/25/19 16:21 67 20 106/66 96 11/25/19 16:00 65 18 132/90 96 11/25/19 15:30 20 144/82 11/25/19 15:21 69 20 106/72 96 11/25/19 15:00 84 20 153/95 96 11/25/19 14:45 75 16 96 11/25/19 14:21 76 20 144/82 96 11/25/19 14:18 98.0 F 82 20 182/107 96 Intake and Output 11/25/19 11/26/19 11/26/19 22:59 06:59 14:59 Intake Total 10 Balance 10 Intake: IV 10 Invasive Line 1 10 PHYSICAL EXAMINATION: Patient is lying in the bed comfortably, no acute distress, awake alert and oriented.. HEENT: Normocephalic. Neck is supple. Pupils reactive. Nostrils clear. Oral cavity is moist. Ears reveal no drainage. Neck reveals no JVD, carotid bruits, or thyromegaly. CHEST EXAMINATION: Trachea is central. Symmetrical expansion. Bibasilar diminished air entry. Lung whittington clear to auscultation and percussion. CARDIAC: Normal S1, S2 with no gallops. No murmurs ABDOMEN: Soft. Bowel sounds normal. No organomegaly. No abdominal bruits. Extremities: reveal no edema. No clubbing or cyanosis Neurologically awake, alert, oriented x3 with well-coordinated movements. No focal deficits noted Skin: No rash or skin lesions. Psychiatric: Coperative. Nonsuicidal Musculoskeletal: No joint swelling or deformity. Normal range of motion. Results CBC & Chem 7: 11/25/19 14:48 11/25/19 14:48 Labs: Abnormal Lab Results - Last 24 Hours (Table) 11/25/19 11/26/19 11/26/19 Range/Units 14:48 03:40 09:37 Chloride 108 H (98-107) mmol/L Glucose 179 H (74-99) mg/dL POC Glucose (mg/dL) 248 H (75-99) mg/dL Triglycerides 189 H (<150) mg/dL HDL Cholesterol 32 L (40-60) mg/dL Thrombosis Risk Factor Assmnt - DVT/VTE Prophylaxis DVT/VTE Prophylaxis: Pharmacologic Prophylaxis ordered Assessment and Plan Assessment: Left-sided facial paresthesias. Ruled out acute CVA. CT head negative. Resolved now. Recent history of stent placement 2 Atypical chest pain Obesity with BMI 30.3 Diabetes type 2 [id number] Hypertension Hyperlipidemia Previous history of smoking History of marijuana use Cervical vertebral crush injury surgically Previously Osteoarthritis DVT prophylaxis Plan: Patient will be continued on telemetry monitoring. Serial EKG and troponin [address] head negative. Laboratory data reviewed. Due to this and history of stent placement, patient was seen by cardiology, recommends no further workup at this time. Patient did improve symptomatically otherwise. Further recommendations based on the clinical course. Time with Patient: Greater than 30
--- NOTE | 2019-12-15 19:46 | P.DS ---
Providers Date of admission: 11/25/19 19:28 Expected date of discharge: 11/26/19 Attending physician: Jerry Rocha Consults: 11/25/19 19:28 Consult Physician Urgent Consulting Provider: Lenore Henriquez Consult Reason/Comments: cp, hx recent stent Do you want consulting provider notified?: Yes Primary care physician: Dia Thomason [facility] Course: Discharge diagnosis. Left-sided facial paresthesias. Ruled out acute CVA. CT head negative. Resolved now. Recent history of stent placement 2 Atypical chest pain Obesity with BMI 30.3 Diabetes type 2 [id number] Hypertension Hyperlipidemia Previous history of smoking History of marijuana use Cervical vertebral crush injury surgically Previously Osteoarthritis Mild hypertriglyceridemia DVT prophylaxis Hospital course Patient is a 64-year-old male with a known history of coronary artery disease status post stent 2 placement recently, diabetes type 2, hypertension, hyperlipidemia, cervical vertebral crush injury surgically repaired, previous history of smoking and marijuana use came to ER with complaints of left-sided facial numbness and paresthesias. Patient did have cardiac catheterization and stent placement last Monday. Paresthesias are mainly in the perioral region and to the left side of the face and upper extremity sometimes. Patient was admitted to the hospital with similar complaints about a week ago and had stress test followed by cardiac catheterization and subsequent stent placement in his obtuse marginal branch. Patient has been having symptoms since morning. Denied any focal weakness. No facial droop or dysarthria. Patient also did have sharp left-sided chest pain lasting for a few seconds this morning but since resolved now. Denied any difficulty in breathing. Denied any leg weakness or swelling. No orthopnea no PND. Patient says that he was anxious. Denied any recent marijuana use. Chest x-ray showed poor inspiration which is worse than previous study. CT head showed no acute process. Chronic small vessel ischemic changes noted. Troponin 3 negative Patient was continued on telemetry monitoring. Serial EKG and troponin [address] head negative. Laboratory data reviewed. Due to this and history of stent placement, patient was seen by cardiology, recommends no further workup at this time. Patient did improve symptomatically otherwise. Further recommendations based on the clinical course. Discharge physical examination was done and vitals reviewed. Patient Condition at Discharge: Good Plan - Discharge Summary New Discharge Prescriptions: Continue Omeprazole 20 mg PO DAILY #30 cap Tamsulosin [Flomax] 0.4 mg PO DAILY PRN PRN Reason: URINARY ISSUES Aspirin EC [Ecotrin Low Dose] 81 mg PO DAILY cycloSPORINE [Restasis] 1 drop BOTH EYES BID PRN PRN Reason: DRY EYES Lisinopril [Zestril] 5 mg PO HS Metoprolol Tartrate [Lopressor] 25 mg PO BID #60 tab Clopidogrel [Plavix] 75 mg PO DAILY #30 tab Rosuvastatin [Crestor] 20 mg PO HS #0 metFORMIN HCL [metFORMIN HCL ER] 1,000 mg PO BID #0 Nitroglycerin Sl Tabs [Nitrostat] 0.4 mg SUBLINGUAL DIRECTED PRN #30 tab PRN Reason: Chest Pain Glimepiride [Amaryl] 1 mg PO BID Discharge Medication List Omeprazole 20 mg PO DAILY #30 cap 04/15/16 [Rx] Aspirin EC [Ecotrin Low Dose] 81 mg PO DAILY 11/17/19 [History] Lisinopril [Zestril] 5 mg PO HS 11/17/19 [History] Tamsulosin [Flomax] 0.4 mg PO DAILY PRN 11/17/19 [History] cycloSPORINE [Restasis] 1 drop BOTH EYES BID PRN 11/17/19 [History] Clopidogrel [Plavix] 75 mg PO DAILY #30 tab 11/20/19 [Rx] Metoprolol Tartrate [Lopressor] 25 mg PO BID #60 tab 11/20/19 [Rx] Nitroglycerin Sl Tabs [Nitrostat] 0.4 mg SUBLINGUAL DIRECTED PRN #30 tab 11/20/19 [Rx] Rosuvastatin [Crestor] 20 mg PO HS #0 11/20/19 [Rx] metFORMIN HCL [metFORMIN HCL ER] 1,000 mg PO BID #0 11/20/19 [Rx] Glimepiride [Amaryl] 1 mg PO BID 11/25/19 [History] Follow up Appointment(s)/Referral(s): Paddy Alvares MD [Primary Care Provider] - 1 Week (KEEP YOUR APPOINTMENT ON November) Mc Henson MD [REFERRING] - 1 Week (KEEP YOUR PREVIOUSLY SCHEDULE APPOINTMENT) Patient Instructions/Handouts: Chest Pain (ED) Discharge Disposition: HOME SELF-CARE
== END 2019-11-26 10:55 | disposition home or self-care (01) ==
LOC: EC 14:17 → 1SOBS 19:28
PROVIDERS: ADMIT Hospitalist; ATTEND Hospitalist
DX: R20.0 Anesthesia of skin (principal); E11.9 Type 2 diabetes mellitus without complications; E66.9 Obesity, unspecified; E78.1 Pure hyperglyceridemia; E78.5 Hyperlipidemia, unspecified; F41.9 Anxiety disorder, unspecified; I10 Essential (primary) hypertension; I25.10 Atherosclerotic heart disease of native coronary artery without angina pectoris; I45.10 Unspecified right bundle-branch block; Z68.30 Body mass index [BMI] 30.0-30.9, adult; R07.89 Other chest pain; Z79.02 Long term (current) use of antithrombotics/antiplatelets; Z79.82 Long term (current) use of aspirin; Z79.84 Long term (current) use of oral hypoglycemic drugs; Z79.899 Other long term (current) drug therapy; Z83.3 Family history of diabetes mellitus; Z87.891 Personal history of nicotine dependence; Z95.5 Presence of coronary angioplasty implant and graft; Z98.42 Cataract extraction status, left eye
CPT/HCPCS: 96374; 99285; 36415; 93005 ×2; 80061; 80053; 83735; 84484 ×2; 85025; 85610; 85730; 71046; 70450; G0378 ×2; J2060

== ENCOUNTER → 2022-06-07 | Day surgery (SDC) | payer MEDICARE ==
[2022-06-02 15:17] VITALS: BMI 29.4
[~2022-06-07] MED LIST: ALPRAZolam 0.25 MG TAB PO PRN; ALPRAZolam 0.5 MG TAB PO PRN; ASPIRIN 325 MG TAB PO STA; ASPIRIN 81 MG PO SCH; ATORVASTATIN 40 MG TAB PO SCH; ATORVASTATIN 80 MG TAB PO STA; GLIMEPIRIDE 2 MG TAB PO SCH; HEPARIN SODIUM 1,000 UN/ML (10ML VL) IV ONE; HEPARIN SODIUM 1,000 UN/ML (10ML VL) ONE; HEPARIN SODIUM,PORCINE 10,000 UNIT in SODIUM CHLORIDE 0.9% 1,000 ML IRRIGATION PRN; HEPARIN SODIUM,PORCINE 2,500 UNIT in SODIUM CHLORIDE 0.9% 250 ML IRRIGATION PRN; IOPAMIDOL-370 125ML BTL INJ ONE; LIDOCAINE 1% INJ 10MG/ML (5 ML VIAL-PF) SQ ONE; METOPROLOL SUCCINATE (ER) 25 MG TAB.ER.24H PO SCH; MIDAZOLAM 2 MG/2 ML VIAL IV ONE; NITROGLYCERIN SL TABS 0.4 MG TAB SUBLINGUAL PRN; NON FORMULARY DRUG (Semaglutide [Rybelsus] 7 MG Tablet) PO SCH; PANTOPRAZOLE 40 MG TABLET PO SCH; PRASUGREL 10 MG TAB PO SCH; RX INFO: IV CONTRAST WAS GIVEN 1 EACH MISC MISCELLANE PRN; SODIUM CHLORIDE 0.9% 1,000 ML IV ONE; SODIUM CHLORIDE 0.9% 1,000 ML IV SCH; SODIUM CHLORIDE 0.9% 1,000 ML in EMPTY BAG 1 BAG IV SCH; VERAPAMIL 2.5 MG/ML 2 ML AMP ONE; VERAPAMIL SYRINGE (5 MG/10 ML) INTRAARTER ONE; fentaNYL (PF) 50 MCG/ML 2 ML AMP IV ONE; fentaNYL (PF) 50 MCG/ML 2 ML AMP ONE; lisinopriL 5 MG TAB PO SCH
[2022-06-07 09:22] LABS: Glucose,Whole Blood 108 mg/dL (70-110)
[2022-06-07 09:25] VITALS: RESP 16; TEMP 98
[2022-06-07 09:26] LABS: Basophils # (A) 0.1 k/uL (0-0.2); Basophils % (A) 1 %; Eosinophils # (A) 0.5 k/uL (0-0.7); Eosinophils % (A) 6 %; HCT 41.3 % (39.0-53.0); HGB 13.4 gm/dL (13.0-17.5); Lymphocytes # (A) 1.9 k/uL (1.0-4.8); Lymphocytes % (A) 23 %; MCH 28.5 pg (25.0-35.0); MCHC 32.6 g/dL (31.0-37.0); MCV 87.4 fL (80.0-100.0); Mean Platelet Volume 7.3; Monocytes # (A) 0.4 k/uL (0-1.0); Monocytes % (A) 5 %; Neutrophils # (A) 5.2 k/uL (1.3-7.7); Neutrophils % (A) 64 %; Platelet Count 245 k/uL (150-450); RBC 4.72 m/uL (4.30-5.90); RDW 13.5 % (11.5-15.5); WBC 8.1 k/uL (3.8-10.6)
[2022-06-07 09:40] LABS: African American GFR (CKD) >90 (>60 ml/min/1.73 sqM); Anion Gap 8 mmol/L; Blood Urea Nitrogen 15 mg/dL (9-20); Calcium 9.1 mg/dL (8.4-10.2); Carbon Dioxide 24 mmol/L (22-30); Chloride 107 mmol/L (98-107); Glucose 116 mg/dL (74-99); Non-African American GFR(CKD) 80 (>60 ml/min/1.73 sqM); Potassium 4.5 mmol/L (3.5-5.1); Sodium 139 mmol/L (137-145)
--- NOTE | 2022-06-07 11:00 | P.CARDCATH ---
Date of Procedure: 06/07/22 Description of Procedure: Cardiac Catheterization: The patient is a 67-year-old male with a known history of CAD, post-multivessel stenting who had episode of chest discomfort and an abnormal MPI. Recommendations were made regarding cardiac catheterization, the risks and the complications were discussed with the patient who is in full understanding and agreement. Procedure Description: Patient was brought to refuse laborer in fasting semi-sedated state after receiving Fentanyl and Benadryl achieiving moderate conscious sedated state. Using Xylocaine Anesthesia and Seldinger technique, a 6-Burmese sheath was introduced in the right radial artery . Subsequently, selective coronary angiography was performed using a 5-Burmese 4 bend right and 3-1/2 left bend Bebo catheter. Multiple views of the coronary artery including hemiaxial views were obtained. The 5-Burmese Pigtail catheter was used to cross the aortic valve and LVEDP was calculated. Following that, catheter and sheath were removed. Hemostasis was obtained with deployment of TR band . There was no immediate complication. Patient was returned to room in stable condition. Of note, the patient received a total of 5000 units of intravenous heparin as well as intra-arterial verapamil. There was no immediate complications. Findings: Left main: This is a large size vessel, bifurcating into LAD and left circumflex, left main has no high-grade stenosis LAD: This is a large size vessel, the stented segment proximally is patent, there 20-30% plaque distal to the stent with no high-grade stenosis Left circumflex: This is a nondominant vessel, giving rise to 2 obtuse marginal branch. The stented segment in the first and second obtuse marginal branch are patent with mild intimal disease RCA: This is a large dominant vessel, bifurcating distally to PDA and PLV. The proximal stented segment has a 20-30% in-stent restenosis with no high-grade lesion Left Ventriculogram: Not performed Hemodynamics: There was no gradient across the aortic valve, LVEDP 12-16 mmHg Conclusion: 1. Patent stent in the LAD with mild disease 2. Patent stent in the left circumflex with mild disease 3. Patent stent in the RCA with mild disease 4. Normal LVEDP Recommendations: I have recommended to continue medical therapy with the aggressive coronary risks modifications, the findings and recommendations were discussed with the patient and his family, they were in full understanding and agreement. Duration of sedation is 20 minutes.
[2022-06-07 14:57] VITALS: BP 138/72; PULSE 62
== END | disposition home or self-care (01) ==
LOC: CATHCVL 08:43
PROVIDERS: ATTEND Internal Medicine Interventional Cardiology
DX: T82.855A Stenosis of coronary artery stent, initial encounter (principal); I25.10 Atherosclerotic heart disease of native coronary artery without angina pectoris; R94.39 Abnormal result of other cardiovascular function study; E78.00 Pure hypercholesterolemia, unspecified; Z20.822 Contact with and (suspected) exposure to COVID-19; E78.2 Mixed hyperlipidemia; F17.200 Nicotine dependence, unspecified, uncomplicated; I25.2 Old myocardial infarction; I25.5 Ischemic cardiomyopathy; I45.10 Unspecified right bundle-branch block; E11.9 Type 2 diabetes mellitus without complications; Z79.82 Long term (current) use of aspirin; Z79.899 Other long term (current) drug therapy; Z79.84 Long term (current) use of oral hypoglycemic drugs
CPT/HCPCS: 93458; 80048; 85025; 87635; C1894; C1769; J2250; J2001; J3010; J1644; Q9967

== ENCOUNTER 2022-12-12 07:10 | Day surgery (SDC) | payer MEDICARE ==
[2022-12-09 09:07] VITALS: BMI 28.2
[~2022-12-12 07:10] MED LIST changes: +ACETAMINOPHEN TAB 500 MG TAB PO PRN; -ALPRAZolam 0.25 MG TAB PO PRN; -ALPRAZolam 0.5 MG TAB PO PRN; -ASPIRIN 325 MG TAB PO STA; -ASPIRIN 81 MG PO SCH; -ATORVASTATIN 40 MG TAB PO SCH; -ATORVASTATIN 80 MG TAB PO STA; +DEXAMETHASONE SOD PHOSPHATE 4 MG/ML 1 ML VIAL IV ONE; -GLIMEPIRIDE 2 MG TAB PO SCH; -HEPARIN SODIUM 1,000 UN/ML (10ML VL) IV ONE; -HEPARIN SODIUM 1,000 UN/ML (10ML VL) ONE; -HEPARIN SODIUM,PORCINE 10,000 UNIT in SODIUM CHLORIDE 0.9% 1,000 ML IRRIGATION PRN; -HEPARIN SODIUM,PORCINE 2,500 UNIT in SODIUM CHLORIDE 0.9% 250 ML IRRIGATION PRN; +HEPARIN SODIUM,PORCINE/PF 5,000 UNIT/0.5 ML SYRINGE SQ PRN; +HYDROmorphone 0.5 MG/0.5 ML SYRINGE IVP PRN; -IOPAMIDOL-370 125ML BTL INJ ONE; +LIDOCAINE 1% (10MG/ML) FOR IV START INTRADERMA PRN; -LIDOCAINE 1% INJ 10MG/ML (5 ML VIAL-PF) SQ ONE; -METOPROLOL SUCCINATE (ER) 25 MG TAB.ER.24H PO SCH; -MIDAZOLAM 2 MG/2 ML VIAL IV ONE; -NITROGLYCERIN SL TABS 0.4 MG TAB SUBLINGUAL PRN; -NON FORMULARY DRUG (Semaglutide [Rybelsus] 7 MG Tablet) PO SCH; +ONDANSETRON 4 MG/2 ML VIAL IVP ONE; -PANTOPRAZOLE 40 MG TABLET PO SCH; -PRASUGREL 10 MG TAB PO SCH; -RX INFO: IV CONTRAST WAS GIVEN 1 EACH MISC MISCELLANE PRN; -SODIUM CHLORIDE 0.9% 1,000 ML IV ONE; -SODIUM CHLORIDE 0.9% 1,000 ML IV SCH; -SODIUM CHLORIDE 0.9% 1,000 ML in EMPTY BAG 1 BAG IV SCH; -VERAPAMIL 2.5 MG/ML 2 ML AMP ONE; -VERAPAMIL SYRINGE (5 MG/10 ML) INTRAARTER ONE; -fentaNYL (PF) 50 MCG/ML 2 ML AMP IV ONE; -fentaNYL (PF) 50 MCG/ML 2 ML AMP ONE; -lisinopriL 5 MG TAB PO SCH
[2022-12-12] MEDS: LACTATED RINGERS 1,000 ML IV SCH ×2 (08:01→09:26)
[2022-12-12 08:02] LABS: Glucose,Whole Blood 125 mg/dL (70-110)
[2022-12-12] MEDS ORDERED: fentaNYL (PF) 50 MCG/ML 2 ML AMP ONE (08:31)
[2022-12-12] MEDS ORDERED: KETOROLAC 15 MG/ML 1 ML VIAL ONE (08:31)
[2022-12-12] MEDS ORDERED: PROPOFOL 10 MG/ML 20 ML VIAL IV ONE (08:31)
[2022-12-12] MEDS ORDERED: ROCURONIUM 10 MG/ML (5 ML VIAL) IV ONE (08:31)
[2022-12-12] MEDS ORDERED: LIDOCAINE 2% INJ 20 MG/ML (2 ML VIAL) ONE (08:31)
[2022-12-12] MEDS ORDERED: SUCCINYLCHOLINE CHLORIDE 200 MG/10 ML VIAL IV ONE (08:31)
[2022-12-12] MEDS ORDERED: MIDAZOLAM 2 MG/2 ML VIAL ONE (08:31)
[2022-12-12] MEDS ORDERED: HYDROmorphone (PF) 1 MG/ML ONE (08:31)
[2022-12-12] MEDS ORDERED: BUPIVACAIN-EPI 0.25%-1:200,000 30 ML VIAL SQ ONE (08:53)
--- NOTE | 2022-12-12 09:14 | P.OP ---
Date of Procedure: 12/12/22 Preoperative Diagnosis: Biliary dyskinesia Postoperative Diagnosis: Biliary dyskinesia Procedure(s) Performed: Laparoscopic cholecystectomy Anesthesia: GUSTAVO Surgeon: Daren Chahal Estimated Blood Loss (ml): 5 Pathology: other (Gallbladder) Condition: stable Disposition: PACU Description of Procedure: The patient was placed on the operating table. The patient received a general endotracheal tube anesthesia. The patients abdomen was prepped and draped in the usual sterile fashion. Through an infraumbilical stab incision, the fascia of the anterior abdominal wall was grasped with a pair of Kochers and then the Veress needle was placed in the peritoneal cavity. Position of the Veress needle was confirmed with positive drop test. The abdomen was then insufflated. After adequate insufflation, the 10 mm trocar was placed in the peritoneal cavity. Following this the laparoscope was placed in the peritoneal cavity. The patient was placed in the head-up, right side up position and then a 5 mm trocar was placed in the right lateral and right subcostal position under direct visualization. A 8 mm trocar was placed in the epigastric position. The gallbladder was grasped in the fundus and infundibulum. Traction on the gallbladder was placed in the lateral and the cephalad positions. The triangle of Calot was visualized.. The cystic duct was bluntly dissected until the union of the cystic duct and common bile duct was seen. A critical view of safety was achieved. The cystic duct was then divided and sealed with the Harmonic scissors. A PDS Endoloop was then placed throughout the cystic duct stump. The cystic artery divided and sealed with the Harmonic scissors. The gallbladder was then removed from the liver bed using Harmonic scissors. The gallbladder was then extracted through the epigastric port site. Operative field was checked for any bleeding spots and Harmonic scissors was used to coagulate the liver bed. The abdomen was irrigated. The trocars were removed. The skin was closed using interrupted 3-0 Vicryl suture. Dermabond dressing were applied. The patient tolerated the procedure well.
[2022-12-12 09:17] VITALS: TEMP 96.8
[2022-12-12 09:26] VITALS: RESP 16
[2022-12-12] MEDS ORDERED: hydrALAZINE HCL 20 MG/ML 1 ML VIAL IV ONE (09:38)
[2022-12-12 14:24] LABS: Glucose,Whole Blood 188 mg/dL (70-110)
[2022-12-12] MEDS ORDERED: TAMSULOSIN 0.4 MG CAP.ER.24H PO ONE (15:28)
[2022-12-12 17:36] VITALS: BP 159/85; PULSE 68
== END 2022-12-12 18:13 | disposition home or self-care (01) ==
LOC: OR 07:10
PROVIDERS: ATTEND Surgery
DX: K81.1 Chronic cholecystitis (principal); K82.8 Other specified diseases of gallbladder; I25.10 Atherosclerotic heart disease of native coronary artery without angina pectoris; Z95.5 Presence of coronary angioplasty implant and graft; E11.9 Type 2 diabetes mellitus without complications; K21.9 Gastro-esophageal reflux disease without esophagitis; Z88.8 Allergy status to other drugs, medicaments and biological substances; Z79.84 Long term (current) use of oral hypoglycemic drugs; Z79.1 Long term (current) use of non-steroidal anti-inflammatories (NSAID); Z79.891 Long term (current) use of opiate analgesic; Z79.899 Other long term (current) drug therapy; Z79.02 Long term (current) use of antithrombotics/antiplatelets; Z79.810 Long term (current) use of selective estrogen receptor modulators (SERMs); Z98.890 Other specified postprocedural states
CPT/HCPCS: 88304; 47562; J2250; J0330; J0360; J1100; J0690; J2405; J3010; J1170 ×2; J1885; J2704; J1644; J2001

== ENCOUNTER 2023-03-17 17:51 | Emergency (ER) | payer MEDICARE ==
[2023-03-17 18:03] VITALS: RESP 20
--- NOTE | 2023-03-17 18:32 | ED ---
General Adult HPI - General Chief complaint: Eye Problems Stated complaint: visual disturbances Time Seen by Provider: 03/17/23 18:12 Source: patient Mode of arrival: ambulatory Limitations: no limitations - History of Present Illness Initial comments: Dictation was produced using [employer] dictation software. please excuse any grammatical, word or spelling errors. Chief Complaint: 67-year-old male with past medical history bilateral eye retinal detachment presents with left eye vision changes History of Present Illness: Patient's 67-year-old male who has past surgical history coronary artery disease, diabetes dyslipidemia. 1 hour prior to arrival patient began having visual disturbances in his left eye affecting the upper temporal whittington. States that it's like a flashing C. Denies any eye pain. No other complaints at this time. Patient has history of retinal detachments feels that his symptoms remind him of previous retinal detachment in the past. Patient has had retinal detachment to both eyes over evaluated treated by Dr. Melendez The ROS documented in this emergency department record has been reviewed and confirmed by me. Those systems with pertinent positive or negative responses have been documented in the HPI. All other systems are other negative and/or noncontributory. - Related Data Home Medications Medication Instructions Recorded Confirmed Aspirin EC [Ecotrin Low Dose] 81 mg PO DAILY 11/17/19 12/12/22 lisinopriL [Zestril] 5 mg PO HS 11/17/19 12/12/22 Omeprazole 20 mg PO BID 01/06/22 12/12/22 Semaglutide [Rybelsus] 7 mg PO DAILY 01/06/22 12/12/22 Nitroglycerin Sl Tabs [Nitrostat] 0.4 mg SUBLINGUAL Q5M PRN 01/07/22 12/12/22 metFORMIN HCL ER [Glucophage XR] 500 mg PO DAILY 01/07/22 12/12/22 Cyclobenzaprine HCl 10 mg PO DAILY PRN 12/09/22 12/12/22 Diclofenac Sodium [Voltaren] 50 mg PO BID 12/09/22 12/12/22 HYDROcodone/APAP 7.5-325MG [[place] 1 tab PO DAILY PRN 12/09/22 12/12/22 7.5-325] Metoprolol Tartrate [Lopressor] 12.5 mg PO BID 01/13/23 01/16/23 diazePAM [Valium] 5 mg PO DAILY PRN 12/09/22 12/12/22 Previous Rx's Medication Instructions Recorded Rosuvastatin [Crestor] 20 mg PO HS #0 11/20/19 Prasugrel [Effient] 10 mg PO DAILY #90 tab 01/11/22 Allergies Allergy/AdvReac Type Severity Reaction Status Date / Time sucralfate AdvReac Nausea & Verified 03/17/23 18:03 Vomiting Review of Systems ROS Statement: Those systems with pertinent positive or pertinent negative responses have been documented in the HPI. ROS Other: All systems not noted in ROS Statement are negative. Past Medical History Past Medical History: Coronary Artery Disease (CAD), Chest Pain / Angina, Diabetes Mellitus, Hyperlipidemia, Hypertension Additional Past Medical History / Comment(s): N/V,Chronic NECK AND BACK PAIN, HX OF BROKEN NECK & BACK,mult hx bone fx's History of Any Multi-Drug Resistant Organisms: None Reported Past Surgical History: Heart Catheterization, Heart Catheterization With Stent, Hernia Repair, Orthopedic Surgery, Tonsillectomy Additional Past Surgical History / Comment(s): R thumb arthroplasty, Cervical vertebral crushed and surgically repaired, L foot spur removed, L knee arthroscopy, colonoscopy, bilateral eyelid surgery, left cataract removed, heart caths x2 with stents 2015 & 2018 , inguinal hernia x2, heart cath -no stents Past Anesthesia/Blood Transfusion Reactions: No Reported Reaction Additional Past Anesthesia/Blood Transfusion Reaction / Comment(s): no hx blood transfusion Date of Last Stent Placement:: 2018 Past Psychological History: Depression Smoking Status: Former smoker Past Alcohol Use History: Rare Past Drug Use History: Marijuana - Past Family History Father Family Medical History: Vascular Disorder Additional Family Medical History / Comment(s): Father had TB. He is . Mother Family Medical History: Diabetes Mellitus Additional Family Medical History / Comment(s): Mother had TB. She at age 75 yrs. General Exam - General Exam Comments Initial Comments: PHYSICAL EXAM: General Impression: Alert and oriented x3, not in acute distress HEENT: Normocephalic atraumatic, extra-ocular movements intact, pupils equal and reactive to light bilaterally, mucous membranes moist. Cardiovascular: Heart regular rate and rhythm Chest: Able to complete full sentences, no retractions, no tachypnea Musculoskeletal: no peripheral edema Motor: no focal deficits noted Neurological: CN II-XII grossly intact, no focal motor or sensory deficits noted Skin: Intact with no visualized rashes Psych: Normal affect and mood Visual acuity: 20/30 left eye, 20/30 right eye, 20/30 bilateral Limitations: no limitations Course Vital Signs 03/17/23 18:01 Temperature 98.3 F Pulse Rate 65 Respiratory 20 Rate Blood Pressure 148/84 O2 Sat by Pulse 98 Oximetry Medical Decision Making - Medical Decision Making 7:00 PM: Case is discussed with on-call java programmer, Dr. Melendez states that patient's symptoms are not too severe and should be discharged with instruction to follow up with ophthalmology office on Monday. He did however request the patient instructed to return back to the emergency department if he starts to have vision loss. Patient was not satisfied with Dr. Melendez's answer. They requested that I speak with patient's retinal specialist Dr. Salas. I did speak with Dr. Barclay was instrument/control technician physician who was getting cause further ophthalmology group. She requested the patient call the answering service and speak with java programmer for further care. Patient satisfied with this answer. I was at the bedside assisting them with leaving a message with the retinal specialist. Discharge. He is told to follow instructions with the retinal specialist otherwise he is told to follow-up with java programmer or return to the emergency department if he has any worsening vision changes. Was pt. sent in by a medical professional or institution (, [facility], CONSULTING SOLUTION MANAGER, urgent care, hospital, or [facility]...) When possible be specific @ -No Did you speak to anyone other than the patient for history (EMS, parent, family, police, friend...)? What history was obtained from this source @ -No Did you review nursing and triage notes (agree or disagree)? Why? @ -I reviewed and agree with nursing and triage notes Were old charts reviewed (outside hosp., previous admission, EMS record, old EKG, old radiological studies, urgent care reports/EKG's, [facility] records)? Report findings @ -No old charts were reviewed Differential Diagnosis (chest pain, altered mental status, abdominal pain women, abdominal pain men, vaginal bleeding, musculoskeletal, weakness, fever, dyspnea, syncope, headache, dizziness, GI bleed, back pain, seizure, CVA, palpa tations, mental health)? @ -Retinal detachment, cataracts, glaucoma, retinal hemorrhage EKG interpreted by me (3pts min.). @ -None done X-rays interpreted by me (1pt min.). @ -None done CT interpreted by me (1pt min.). @ -None done U/S interpreted by me (1pt. min.). @ -None done What testing was considered but not performed or refused? (CT, X-rays, U/S, labs)? Why? @ -None What meds were considered but not given or refused? Why? @ -None Did you discuss the management of the patient with other professionals (professionals i.e. DrBoaz, PA, CONSULTING SOLUTION MANAGER, lab, RT, psych nurse, social media assistant, surgical garment assembler, teacher, [place] police officer, residential case manager)? Give summary @ -No Was smoking cessation discussed for >3mins.? @ -No Was critical care preformed (if so, how long)? @ -No Were there social determinants of health that impacted care today? How? (Homelessness, low income, unemployed, alcoholism, drug addiction, transportation, low edu. Level, literacy, decrease access to med. care, shelter, rehab)? @ -No Was there de-escalation of care discussed even if they declined (Discuss DNR or withdrawal of care, Hospice)? DNR status @ -No What co-morbidities impacted this encounter? (DM, HTN, Smoking, COPD, CAD, Cancer, CVA, ARF, Chemo, Hep., AIDS, mental health diagnosis, sleep apnea, morbid obesity)? @ -None Was patient admitted / discharged? Hospital course, mention meds given and route, prescriptions, significant lab abnormalities, going to OR and other pertinent info. @ -See above Undiagnosed new problem with uncertain prognosis? @ -No Drug Therapy requiring intensive monitoring for toxicity (Heparin, Nitro, Insulin, Cardizem)? @ -No Were any procedures done? @ -No Diagnosis/symptom? Acute, or Chronic, or Acute on Chronic? Uncomplicated (without systemic symptoms) or Complicated (systemic symptoms)? @ -1. Acute vision changes, suspect retinal disease Side effects of treatment? @ -No Exacerbation, Progression, or Severe Exacerbation? @ -No Poses a threat to life or bodily function? How? (Chest pain, [place], [place], pneumonia, PE, COPD, DKA, ARF, appy, cholecystitis, CVA, Diverticulitis, Homicidal, Suicidal, threat to staff... and all critical care pts) @ -yes Disposition Clinical Impression: Vision changes Disposition: HOME SELF-CARE Condition: Fair Instructions (If sedation given, give patient instructions): Visual Floaters (ED) Is patient prescribed a controlled substance at d/c from ED?: No Referrals: Marvin Melendez MD [STAFF PHYSICIAN] - 1-2 days Time of Disposition: 19:40
[2023-03-17 19:53] VITALS: BP 146/80; PULSE 62; TEMP 98.2
== END 2023-03-17 19:52 | disposition home or self-care (01) ==
LOC: EC 17:51
DX: H53.133 Sudden visual loss, bilateral (principal); I10 Essential (primary) hypertension; I25.10 Atherosclerotic heart disease of native coronary artery without angina pectoris; E11.36 Type 2 diabetes mellitus with diabetic cataract; E78.5 Hyperlipidemia, unspecified; F32.A Depression, unspecified; F12.90 Cannabis use, unspecified, uncomplicated; Z79.1 Long term (current) use of non-steroidal anti-inflammatories (NSAID); Z79.82 Long term (current) use of aspirin; Z79.899 Other long term (current) drug therapy; Z87.891 Personal history of nicotine dependence; Z88.2 Allergy status to sulfonamides
CPT/HCPCS: 99282

== ENCOUNTER 2023-05-23 06:09 | Observation (INO) | payer MEDICARE ==
[2023-05-23] MEDS ORDERED: ASPIRIN 81 MG PO STA (06:24)
[2023-05-23 06:43] LABS: Basophils % (A) 1 %; Eosinophils # (A) 0.3 k/uL (0-0.7); Eosinophils % (A) 3 %; HGB 14.1 gm/dL (13.0-17.5); Lymphocytes # (A) 2.4 k/uL (1.0-4.8); Lymphocytes % (A) 29 %; MCH 29.4 pg (25.0-35.0); MCHC 32.8 g/dL (31.0-37.0); MCV 89.6 fL (80.0-100.0); Mean Platelet Volume 6.7; Monocytes # (A) 0.4 k/uL (0-1.0); Monocytes % (A) 5 %; Neutrophils # (A) 5.1 k/uL (1.3-7.7); Neutrophils % (A) 62 %; Platelet Count 240 k/uL (150-450); RDW 13.4 % (11.5-15.5); WBC 8.3 k/uL (3.8-10.6)
--- NOTE | 2023-05-23 06:50 | ED ---
Chest Pain HPI - General Chief Complaint: Chest Pain Stated Complaint: CHEST PAIN Time Seen by Provider: 05/23/23 06:19 Source: patient, RN notes reviewed Mode of arrival: wheelchair Limitations: no limitations - History of Present Illness Initial Comments: 67-year-old male presents emergency Department chief complaint of chest discomfort. Patient states he doesn't feel right on Monday states that he woke up this morning feeling flushed, complaint of left-sided chest pressure radiating to her shoulder. Patient states his mental shortness of breath no headache or dizziness. Patient has significant cardiac history including [address] Arredondo. Patient has a history of hyponatremia hypertension and diabetes. Patient denies any leg pain or leg swelling no abdominal complaints. Patient is not taking aspirin this morning. - Related Data Home Medications Medication Instructions Recorded Confirmed Aspirin EC [Ecotrin Low Dose] 81 mg PO DAILY 11/17/19 12/12/22 lisinopriL [Zestril] 5 mg PO HS 11/17/19 12/12/22 Omeprazole 20 mg PO BID 01/06/22 12/12/22 Semaglutide [Rybelsus] 7 mg PO DAILY 01/06/22 12/12/22 Nitroglycerin Sl Tabs [Nitrostat] 0.4 mg SUBLINGUAL Q5M PRN 01/07/22 12/12/22 metFORMIN HCL ER [Glucophage XR] 500 mg PO DAILY 01/07/22 12/12/22 Cyclobenzaprine HCl 10 mg PO DAILY PRN 12/09/22 12/12/22 Diclofenac Sodium [Voltaren] 50 mg PO BID 12/09/22 12/12/22 HYDROcodone/APAP 7.5-325MG [[place] 1 tab PO DAILY PRN 12/09/22 12/12/22 7.5-325] Metoprolol Tartrate [Lopressor] 12.5 mg PO BID 12/09/22 12/12/22 diazePAM [Valium] 5 mg PO DAILY PRN 12/09/22 12/12/22 Previous Rx's Medication Instructions Recorded Rosuvastatin [Crestor] 20 mg PO HS #0 11/20/19 Prasugrel [Effient] 10 mg PO DAILY #90 tab 01/11/22 Allergies Allergy/AdvReac Type Severity Reaction Status Date / Time sucralfate AdvReac Nausea & Verified 03/17/23 18:03 Vomiting Review of Systems ROS Statement: Those systems with pertinent positive or pertinent negative responses have been documented in the HPI. ROS Other: All systems not noted in ROS Statement are negative. EKG Findings - EKG Comments: EKG Findings:: EKG performed at 6:23 sinus bradycardia with short DC rate of 56 DC 109 QRS 165 QT/QTC 4:15/407 - EKG Results: EKG: interpreted by [facility] Past Medical History Past Medical History: Coronary Artery Disease (CAD), Chest Pain / Angina, Diabetes Mellitus, Hyperlipidemia, Hypertension Additional Past Medical History / Comment(s): N/V,Chronic NECK AND BACK PAIN, HX OF BROKEN NECK & BACK,mult hx bone fx's History of Any Multi-Drug Resistant Organisms: None Reported Past Surgical History: Heart Catheterization, Heart Catheterization With Stent, Hernia Repair, Orthopedic Surgery, Tonsillectomy Additional Past Surgical History / Comment(s): R thumb arthroplasty, Cervical vertebral crushed and surgically repaired, L foot spur removed, L knee arthroscopy, colonoscopy, bilateral eyelid surgery, left cataract removed, heart caths x2 with stents 2015 & 2018 , inguinal hernia x2, heart cath -no stents Past Anesthesia/Blood Transfusion Reactions: No Reported Reaction Additional Past Anesthesia/Blood Transfusion Reaction / Comment(s): no hx blood transfusion Date of Last Stent Placement:: 2018 Past Psychological History: Depression Smoking Status: Former smoker Past Alcohol Use History: Rare Past Drug Use History: Marijuana - Past Family History Father Family Medical History: Vascular Disorder Additional Family Medical History / Comment(s): Father had TB. He is . Mother Family Medical History: Diabetes Mellitus Additional Family Medical History / Comment(s): Mother had TB. She at age 75 yrs. General Exam Limitations: no limitations General appearance: alert, in no apparent distress Head exam: Present: atraumatic, normocephalic, normal inspection Eye exam: Present: normal appearance, PERRL, EOMI. Absent: scleral icterus, conjunctival injection, periorbital swelling ENT exam: Present: normal exam, normal oropharynx, mucous membranes moist Neck exam: Present: normal inspection, full ROM. Absent: tenderness, meningismus, lymphadenopathy Respiratory exam: Present: normal lung sounds bilaterally. Absent: respiratory distress, wheezes, rales, rhonchi, stridor Cardiovascular Exam: Present: regular rate, normal rhythm, normal heart sounds. Absent: systolic murmur, diastolic murmur, rubs, gallop, clicks GI/Abdominal exam: Present: soft, normal bowel sounds. Absent: distended, tenderness, guarding, rebound, rigid Neurological exam: Present: alert, oriented X3, reflexes normal. Absent: motor sensory deficit Skin exam: Present: warm, dry, intact, normal color. Absent: rash Course Vital Signs 05/23/23 05/23/23 06:13 06:45 Temperature 98 F Pulse Rate 63 58 L Respiratory 18 18 Rate Blood Pressure 159/99 136/81 O2 Sat by Pulse 99 97 Oximetry Chest Pain MDM - MDM Was pt. sent in by a medical professional or institution (, PA, DRILL PRESS OPERATOR NUMERICAL CONTROL, urgent care, hospital, or fdc...) When possible be specific @ -[No] Did you speak to anyone other than the patient for history (EMS, parent, family, police, friend...)? What history was obtained from this source @ -[No] Did you review nursing and triage notes (agree or disagree)? Why? @ -[I reviewed and agree with nursing and triage notes] Were old charts reviewed (outside hosp., previous admission, EMS record, old EKG, old radiological studies, urgent care reports/EKG's, fdc records)? Report findings @ -[Review prior laboratory studies, cardiology consult] Differential Diagnosis (chest pain, altered mental status, abdominal pain women, abdominal pain men, vaginal bleeding, weakness, fever, dyspnea, syncope, h eadache, dizziness, GI bleed, back pain, seizure, CVA, palpatations, mental health, musculoskeletal)? @ -[nDifferential Chest Pain: Stable Angina, Unstable Angina, STEMI, NSTEMI Aortic Dissection, Pneumothorax, Musculoskeletal, Esophageal Spasm GERD, Cholecystitis, Pancreatitis, Zoster, this is not meant to be an all-inclusive list. able] EKG interpreted by me (3pts min.). @ -[As above] X-rays interpreted by me (1pt min.). @ -[Chest x-ray shows no acute process] CT interpreted by me (1pt min.). @ -[None done] U/S interpreted by me (1pt. min.). @ -[None done] What testing was considered but not performed or refused? (CT, X-rays, U/S, labs)? Why? @ -[None] What meds were considered but not given or refused? Why? @ -[None] Did you discuss the management of the patient with other professionals (professionals i.e. , PA, DRILL PRESS OPERATOR NUMERICAL CONTROL, lab, RT, psych nurse, social sciences chair, dumper, teacher, security flex officer, case finisher)? Give summary @ -[EMH for admission with cardiology consult for complaint of chest pain with significant CAD] Was smoking cessation discussed for >3mins.? @ -[No] Was critical care preformed (if so, how long)? @ -[No] Were there social determinants of health that impacted care today? How? (Homelessness, low income, unemployed, alcoholism, drug addiction, transportation, low edu. Level, literacy, decrease access to med. care, long-term, rehab)? @ -[No] Was there de-escalation of care discussed even if they declined (Discuss DNR or withdrawal of care, Hospice)? DNR status @ -[No] What co-morbidities impacted this encounter? (DM, HTN, Smoking, COPD, CAD, Cancer, CVA, ARF, Chemo, Hep., AIDS, mental health diagnosis, sleep apnea, morbid obesity)? @ -[CAD, diabetes, hypertension, hyperlipidemia] Was patient admitted / discharged? Hospital course, mention meds given and route, prescriptions, significant lab abnormalities, going to OR and other pert inent info. @ -[Admit patient has significant CAD with complaints of chest pain similar to what is in the past. Patient EKG, labs unremarkable. Patient will be admitted for cardiology evaluation. in] Undiagnosed new problem with uncertain prognosis? @ -[No] Drug Therapy requiring intensive monitoring for toxicity (Heparin, Nitro, Insulin, Cardizem)? @ -[No] Were any procedures done? @ -[No] Diagnosis/symptom? @ -[Chest pain] Acute, or Chronic, or Acute on Chronic? @ -Acute Uncomplicated (without systemic symptoms) or Complicated (systemic symptoms)? @ -, Complicated Side effects of treatment? @ -[No] Exacerbation, Progression, or Severe Exacerbation? @ -[No] Poses a threat to life or bodily function? How? (Chest pain, [place], [place], pneumonia, PE, COPD, DKA, ARF, appy, cholecystitis, CVA, Diverticulitis, Homicidal, Suicidal, threat to staff... and all critical care pts) @ -[Yes patient has chest pain at risk for cardiac arrest] Disposition Clinical Impression: Chest pain Disposition: ADMITTED IP TO THIS HOSP Condition: Fair Referrals: Inocente De La Fuente DO [Primary Care Provider] - 1-2 days Time of Disposition: 07:59
[2023-05-23 06:52] LABS: ALT 26 U/L (4-49); AST 26 U/L (17-59); African American GFR (CKD) >90 (>60 ml/min/1.73 sqM); Albumin 3.9 g/dL (3.5-5.0); Alkaline Phosphatase 104 U/L (38-126); Anion Gap 7 mmol/L; Blood Urea Nitrogen 17 mg/dL (9-20); Calcium 8.9 mg/dL (8.4-10.2); Carbon Dioxide 26 mmol/L (22-30); Chloride 105 mmol/L (98-107); Glucose 162 mg/dL (74-99); Magnesium 1.9 mg/dL (1.6-2.3); Non-African American GFR(CKD) 80 (>60 ml/min/1.73 sqM); Potassium 4.5 mmol/L (3.5-5.1); Sodium 138 mmol/L (137-145); Total Bilirubin 0.7 mg/dL (0.2-1.3); Total Protein 6.5 g/dL (6.3-8.2)
[2023-05-23 07:02] LABS: Partial Thromboplastin Time 24.5 sec (22.0-30.0); Prothrombin Time 10.7 sec (9.0-12.0)
--- NOTE | 2023-05-23 07:16 | XR ---
EXAMINATION TYPE: XR chest 2V DATE OF EXAM: 05/23/2023 7:11 AM COMPARISON: Chest radiographs from TECHNIQUE: XR chest 2V Frontal and lateral views of the chest. CLINICAL INDICATION:Male, 67 years old with history of Chest Pain; FINDINGS: Lungs/Pleura: There is no evidence of pleural effusion, focal consolidation, or pneumothorax. Pulmonary vascularity: Unremarkable. Heart/mediastinum: Cardiomediastinal silhouette is unremarkable. Musculoskeletal: No acute osseous pathology. There is fixation hardware in the lower cervical spine. IMPRESSION: No acute cardiopulmonary disease/process.
[2023-05-23] MEDS ORDERED: NITROGLYCERIN SL TABS 0.4 MG TAB SUBLINGUAL PRN (08:01)
[2023-05-23] MEDS: ASPIRIN 325 MG TAB PO SCH (08:51)
[2023-05-23] MEDS ORDERED: LORATADINE 10 MG TAB PO PRN (09:12)
--- NOTE | 2023-05-23 09:25 | P.HPIM ---
History of Present Illness This is a pleasant 67 years old male with past medical history of coronary artery disease status post stent, diabetes mellitus, hypertension, hyperlipidemia, chronic neck and back pain, depression. His PCPs Dr. De La Fuente Patient presents because of chest pain since Monday his chest pain was on and off, described as mild by the patient central with little back pain and little jaw pain, he had a little chest pain also this morning so he decided to come to emergency room. Endoscopic also has heartburn and indigestion, he denies any shortness of breath or coughing. No headache or dizziness weakness numbness. No GI or urinary sy mptoms. He denies smoking alcohol or illicit drugs Last Monday also reports some dizziness for about 15 minutes which resolved completely and suddenly. He was sitting in chair and he had difficulty standing up, eventually it could walk but with difficulty. Currently is completely resolved. No dizziness currently. Vitals stable Labs unremarkable including CBC and INR, BMP and liver enzymes. Troponin time was negative less than 0.012. Chest x-ray: No acute process EKG: Sinus bradycardia at [address]-T changes. Review of Systems Review of systems CONSTITUTIONAL: No fever, no malaise, no fatigue. HEENT: No recent visual problems or hearing problems. Denied any sore throat. CARDIOVASCULAR: No orthopnea, PND, no palpitations, no syncope. PULMONARY: No shortness of breath, no cough, no hemoptysis. GASTROINTESTINAL: No diarrhea, no nausea, no vomiting, no abdominal pain. Normoactive bowel sounds. NEUROLOGICAL: No headaches, no weakness, no numbness. HEMATOLOGICAL: Denies any bleeding or petechiae. GENITOURINARY: Denies any burning micturition, frequency, or urgency. MUSCULOSKELETAL/RHEUMATOLOGICAL: Denies any joint pain, swelling, or any muscle pain. ENDOCRINE: Denies any polyuria or polydipsia. Past Medical History Past Medical History: Coronary Artery Disease (CAD), Chest Pain / Angina, Diabetes Mellitus, Hyperlipidemia, Hypertension Additional Past Medical History / Comment(s): N/V,Chronic NECK AND BACK PAIN, HX OF BROKEN NECK & BACK,mult hx bone fx's History of Any Multi-Drug Resistant Organisms: None Reported Past Surgical History: Heart Catheterization, Heart Catheterization With Stent, Hernia Repair, Orthopedic Surgery, Tonsillectomy Additional Past Surgical History / Comment(s): R thumb arthroplasty, Cervical vertebral crushed and surgically repaired, L foot spur removed, L knee arthroscopy, colonoscopy, bilateral eyelid surgery, left cataract removed, heart caths x2 with stents 2015 & 2018 , inguinal hernia x2, heart cath -2021-no miriam nts Past Anesthesia/Blood Transfusion Reactions: No Reported Reaction Additional Past Anesthesia/Blood Transfusion Reaction / Comment(s): no hx blood transfusion Date of Last Stent Placement:: 2018 Past Psychological History: Depression Smoking Status: Former smoker Past Alcohol Use History: Rare Past Drug Use History: Marijuana - Past Family History Father Family Medical History: Vascular Disorder Additional Family Medical History / Comment(s): Father had TB. He is . Mother Family Medical History: Diabetes Mellitus Additional Family Medical History / Comment(s): Mother had TB. She at age 75 yrs. Medications and Allergies Home Medications Medication Instructions Recorded Confirmed Type lisinopriL [Zestril] 5 mg PO HS 11/17/19 05/23/23 History Rosuvastatin [Crestor] 20 mg PO HS #0 11/20/19 05/23/23 Rx Omeprazole 20 mg PO DAILY 01/06/22 05/23/23 History Semaglutide [Rybelsus] 7 mg PO DAILY 01/06/22 05/23/23 History metFORMIN HCL ER [Glucophage XR] 500 mg PO DAILY 01/07/22 05/23/23 History Cetirizine HCl [Zyrtec] 10 mg PO DAILY PRN 05/23/23 05/23/23 History Metoprolol Tartrate [Lopressor] 25 mg PO DAILY 05/23/23 05/23/23 History Allergies Allergy/AdvReac Type Severity Reaction Status Date / Time sucralfate AdvReac Nausea & Verified 05/23/23 09:02 Vomiting Physical Exam Vitals: Vital Signs Temp Pulse Resp BP Pulse Ox 05/23/23 06:45 58 L 18 136/81 97 05/23/23 06:13 98 F 63 18 159/99 99 Intake and Output 05/22/23 05/23/23 05/23/23 22:59 06:59 14:59 Other: Weight 96.615 kg GENERAL: The patient is alert and oriented x3, not in any acute distress. Well developed, well nourished. HEENT: Pupils are round and equally reacting to light. EOMI. No scleral icterus. No conjunctival pallor. Normocephalic, atraumatic. No pharyngeal erythema. No thyromegaly. CARDIOVASCULAR: S1 and S2 present. No murmurs, rubs, or gallops. PULMONARY: Chest is clear to auscultation, no wheezing , no crackles. ABDOMEN: Soft, nontender, nondistended, normoactive bowel sounds. No palpable organomegaly. MUSCULOSKELETAL: No joint swelling or deformity. EXTREMITIES: No cyanosis, clubbing, or pedal edema. NEUROLOGICAL: Gross neurological examination did not reveal any focal deficits. SKIN: No rashes. no petechiae. Results CBC & Chem 7: 05/23/23 06:23 05/23/23 06:23 Labs: Abnormal Lab Results - Last 24 Hours (Table) 05/23/23 Range/Units 06: Glucose 162 H (74-99) mg/dL Assessment and Plan Assessment: Chest pain rule out cardiac causes Diabetes mellitus Hypertension Hyperlipidemia History of Coronary artery disease status post stent Plan: Continue with aspirin Cardiology consult Labs and medication were reviewed.. Continue same treatment. Continue with symptomatic treatment. Resume home medication. Monitor labs and vitals. DVT and GI prophylaxis. Further recommendations as per clinical course of the patient DVT prophylaxis: Subcutaneous heparin GI Prophylaxis: Pepcid PT/OT: Pending Prognosis is guarded
[2023-05-23] MEDS ORDERED: DEXTROSE 50% SYRINGE 50 ML IVP PRN ×2 (11:39)
[2023-05-23 12:46] LABS: Glucose,Whole Blood 132 mg/dL (70-110)
[2023-05-23] MEDS: INSULIN ASPART (NovoLOG) 100 UNIT/ML VIAL SQ SCH ×3 (12:48→20:16)
--- NOTE | 2023-05-23 13:41 | US ---
EXAMINATION TYPE: US carotid duplex BILAT DATE OF EXAM: 05/23/2023 COMPARISON: NONE CLINICAL INDICATION: Male, 67 years old with history of blurred vision,; Vision changes TECHNIQUE: Carotid duplex ultrasound examination. Indirect Doppler criteria was utilized. FINDINGS: EXAM MEASUREMENTS: RIGHT: Peak Systolic Velocity (PSV) cm/sec ----- Right CCA: 86.4 ----- Right ICA: 83.8 ----- Right ECA: 57.8 ICA/CCA ratio: 1.0 RIGHT: End Diastole cm/sec ----- Right CCA: 19.5 ----- Right ICA: 29.2 ----- Right ECA: 9.1 LEFT: Peak Systolic Velocity (PSV) cm/sec ----- Left CCA: 86.3 ----- Left ICA: 97.6 ----- Left ECA: 105 ICA/CCA ratio: 1.1 LEFT: End Diastole cm/sec ----- Left CCA: 24.2 ----- Left ICA: 60.8 ----- Left ECA: 10.4 VERTEBRALS (direction of flow): Right Vertebral: Antegrade Left Vertebral: Antegrade Rhythm: Normal [employer]SPORT CON[employer]CTOR NOTES: No significant stenosis seen IMPRESSION: Less than 50% stenosis of the carotid bifurcations. Criteria for Assigning % of Stenosis / Diameter reduction (Estimation based on the indirect measurements of the internal carotid artery velocities (ICA PSV). 1. Normal (no stenosis)=ICA PSV < 125 cm/s: ratio < 2.0: ICA EDV<40 cm/s. 2. Less than 50% stenosis=ICA PSV < 125 cm/s: ratio < 2.0: ICA EDV<40 cm/s. 3. 50 to 69% stenosis=ICA PSV of 125 to 230 cm/s: ration 2.0 ? 4.0: ICA EDV 40-100 cm/s. 4. Greater than 70% stenosis to near occlusion= ICA PSV > 230 cm/s: ratio > 4.0: ICA EDV > 100 cm/s. 5. Near occlusion= ICA PSV velocities may be low or undetectable: variable ratio and ICA EDV. 6. Total occlusion=unable to detect flow.
--- NOTE | 2023-05-23 14:03 | P.CRDCN ---
History of Present Illness Consult date: 05/23/23 Consult reason: chest pain History of present illness: HISTORY OF PRESENTING ILLNESS Patient is a 67-year-old male patient of Dr. Arredondo with history of coronary artery disease with prior PCI 2016 in 2019, preserved ejection fraction, hypertension, hyperlipidemia, prior tobacco abuse since quit, occasional marijuana use, diabetes mellitus type 2 . We have been asked to evaluate the patient for chest pain. Patient states that he was in an open house on Monday and developed dark blurry vision that happened briefly. He was sitting down whe n he went to move his arms and hands he did not have fluid movement of his arms and seemed to be jerky. He got up and walked but he was unsteady. He did not have any chest pain. He then was sitting with his and the symptoms went away completely. Yesterday he was back to normal old day and then in the evening he developed indigestion-like heartburn. His states he slept a lot yesterday. This morning he woke up he still had heartburn and was burping his face was feeling flushed. HEENT he also had some left jaw discomfort. His blood pressure was elevated at home. He denies having chest pain. He does relate that when he had his cardiac cath done last year was done because he had a "low drone" sensation in his head and he knew at that time he needed a stent. His last cardiac catheterization was in May noted below. EKG sinus rhythm with no acute ST changes Chest x-ray no acute cardiopulmonary process CBC is unremarkable. Electrolytes are normal. BUN 17 creatinine 0.98. Blood sugar 162. Troponin negative 2.. ProBNP 21. Liver function tests are normal. Magnesium 1.9. Home cardiac medications: Lisinopril 5 mg at bedtime, Lopressor 25 mg daily, Crestor 20 g at bedtime,Rybelsus 7 mg daily, metformin 500 mg daily Cardiac catheterization 05/2022 revealed patent stent in the LAD with mild disease, patent stent in left circumflex with mild disease, patent stent in the RCA with mild disease, normal LVEDP. PCI 12/2021 with successful stenting of the mid RCA and obtuse marginal Echocardiogram 12/2021 revealed EF of 60-65%, mild concentric left hypertrophy, aortic root dilated at 3.8 cm. No pericardial effusion. REVIEW OF SYSTEMS At the time of my exam: CONSTITUTIONAL: Denies fever or chills. CARDIOVASCULAR: Denies chest pain, denies shortness of breath, no orthopnea, PND, +palpitations. RESPIRATORY: Denies cough. GASTROINTESTINAL: Denies abdominal pain, diarrhea, constipation, nausea or vomiting. MUSCULOSKELETAL: Denies myalgias. NEUROLOGIC: Denies numbness, tingling or weakness. ENDOCRINE: Denies fatigue, weight change, polydipsia or polyurina. GENITOURINARY: Denies burning, hematuria or urgency with micturation. HEMATOLOGIC: Denies history of anemia or bleeding. PHYSICAL EXAMINATION Vital signs reviewed. CONSTITUTIONAL: No apparent distress. HEENT: Head is normocephalic. Pupils are equal, round. Sclerae anicteric. Mucous membranes of the mouth are moist. No JVD. No carotid bruit. CHEST: Lungs are clear to auscultation. No chest wall tenderness is noted on palpation or with deep breathing. HEART: Regular rate and rhythm. S1, S2 heard. No murmurs, gallops or rub. ABDOMEN: Soft, nontender. EXTREMITIES: 2+ peripheral pulses, no lower extremity edema. NEUROLOGIC EXAMINATION: Patient is awake, alert and oriented x3. ASSESSMENT Vague symptoms of blurred vision, jerking of the upper extremities No reported chest pain Gastroesophageal reflux disease Coronary artery disease with prior history PCI Hypertension Diabetes mellitus type 2 Dyspnea on exertion Previous tobacco abuse PLAN Continue patient's home cardiac medications Recommend obtaining neurology consult, carotid ultrasound, IV fluids 0.9 normal saline at 75 mL per hour Further recommendations as patient progresses Thank you kindly for this consultation. Nurse practitioner note has been reviewed, I agree with the documented findings and plan of care. Patient was seen and examined. Past Medical History Past Medical History: Coronary Artery Disease (CAD), Chest Pain / Angina, Diabetes Mellitus, Hyperlipidemia, Hypertension Additional Past Medical History / Comment(s): N/V,Chronic NECK AND BACK PAIN, HX OF BROKEN NECK & BACK,mult hx bone fx's History of Any Multi-Drug Resistant Organisms: None Reported Past Surgical History: Heart Catheterization, Heart Catheterization With Stent, Hernia Repair, Orthopedic Surgery, Tonsillectomy Additional Past Surgical History / Comment(s): R thumb arthroplasty, Cervical vertebral crushed and surgically repaired, L foot spur removed, L knee arthroscopy, colonoscopy, bilateral eyelid surgery, left cataract removed, heart caths x2 with stents 2016 & 2019 , inguinal hernia x2, heart cath 7-2022-no stents Past Anesthesia/Blood Transfusion Reactions: No Reported Reaction Additional Past Anesthesia/Blood Transfusion Reaction / Comment(s): no hx blood transfusion Date of Last Stent Placement:: 2018 Past Psychological History: Depression Smoking Status: Former smoker Past Alcohol Use History: Rare Past Drug Use History: Marijuana - Past Family History Father Family Medical History: Vascular Disorder Additional Family Medical History / Comment(s): Father had TB. He is . Mother Family Medical History: Diabetes Mellitus Additional Family Medical History / Comment(s): Mother had TB. She at age 75 yrs. Medications and Allergies Home Medications Medication Instructions Recorded Confirmed Type lisinopriL [Zestril] 5 mg PO HS 11/17/19 05/23/23 History Rosuvastatin [Crestor] 20 mg PO HS #0 11/20/19 05/23/23 Rx Omeprazole 20 mg PO DAILY 01/06/22 05/23/23 History Semaglutide [Rybelsus] 7 mg PO DAILY 01/06/22 05/23/23 History metFORMIN HCL ER [Glucophage XR] 500 mg PO DAILY 01/07/22 05/23/23 History Cetirizine HCl [Zyrtec] 10 mg PO DAILY PRN 05/23/23 05/23/23 History Metoprolol Tartrate [Lopressor] 25 mg PO DAILY 05/23/23 05/23/23 History Allergies Allergy/AdvReac Type Severity Reaction Status Date / Time sucralfate AdvReac Nausea & Verified 05/23/23 09:02 Vomiting Physical Exam Vitals: Vital Signs Temp Pulse Pulse Resp BP BP Pulse Ox 05/23/23 09:30 53 H 130/83 05/23/23 09:00 97.8 F 57 L 16 134/81 97 05/23/23 06:45 58 L 18 136/81 97 05/23/23 06:13 98 F 63 18 159/99 99 Intake and Output 05/22/23 05/23/23 05/23/23 22:59 06:59 14:59 Other: Weight 96.615 kg Results 05/23/23 06:23 05/23/23 06:23 Cardiac Enzymes 05/23/23 05/23/23 05/23/23 Range/Units 06:23 06:23 09:02 AST 26 (17-59) U/L Troponin I <0.012 <0.012 (0.000-0.034) ng/mL Coagulation 05/23/23 Range/Units 06:23 PT 10.7 (9.0-12.0) sec APTT 24.5 (22.0-30.0) sec CBC 05/23/23 Range/Units 06:23 WBC 8.3 (3.8-10.6) k/uL RBC 4.80 (4.30-5.90) m/uL Hgb 14.1 (13.0-17.5) gm/dL Hct 43.0 (39.0-53.0) % Plt Count 240 (150-450) k/uL Comprehensive Metabolic Panel 05/23/23 Range/Units 06:23 Sodium 138 (137-145) mmol/L Potassium 4.5 (3.5-5.1) mmol/L Chloride 105 (98-107) mmol/L Carbon Dioxide 26 (22-30) mmol/L BUN 17 (9-20) mg/dL Creatinine 0.98 (0.66-1.25) mg/dL Glucose 162 H (74-99) mg/dL Calcium 8.9 (8.4-10.2) mg/dL AST 26 (17-59) U/L ALT 26 (4-49) U/L Alkaline Phosphatase 104 (38-126) U/L Total Protein 6.5 (6.3-8.2) g/dL Albumin 3.9 (3.5-5.0) g/dL Current Medications Generic Name Dose Route Start Last Admin Trade Name Freq PRN Reason Stop Dose Admin Aspirin 325 mg 05/24/23 09:00 05/23/23 08:51 Aspirin 325 Mg Tab PO Not Given DAILY ZENY Famotidine 20 mg 05/23/23 21:00 Famotidine 20 Mg/2 Ml Vial IV Q12HR ZENY Heparin Sodium (Porcine) 5,000 unit 05/23/23 21:00 Heparin Sodium,Porcine/Pf 5,000 Unit/0.5 Ml Syringe SQ Q12HR ZENY Lisinopril 5 mg 05/23/23 21:00 Lisinopril 5 Mg Tab PO HS ZENY Loratadine 10 mg 05/23/23 09:12 Loratadine 10 Mg Tab PO DAILY PRN Allergy Symptoms Metformin HCl 250 mg 05/24/23 09:00 Metformin 500 Mg Tab PO BID ZENY Metoprolol Tartrate 25 mg 05/24/23 09:00 Metoprolol Tartrate 25 Mg Tab PO DAILY ZENY Nitroglycerin 0.4 mg 05/23/23 08:01 Nitroglycerin Sl Tabs 0.4 Mg Tab SUBLINGUAL Q5M PRN Chest Pain Intake and Output 05/22/23 05/23/23 05/23/23 22:59 06:59 14:59 Other: Weight 96.615 kg 05/23/23 06:23 05/23/23 06:23
[2023-05-23 17:40] LABS: Glucose,Whole Blood 140 mg/dL (70-110)
[2023-05-23] MEDS: SODIUM CHLORIDE 0.9% 1,000 ML IV SCH ×2 (18:57→21:38)
[2023-05-23] MEDS: HEPARIN SODIUM,PORCINE/PF 5,000 UNIT/0.5 ML SYRINGE SQ SCH (20:16)
[2023-05-23 20:17] LABS: Glucose,Whole Blood 165 mg/dL (70-110)
[2023-05-23] MEDS: FAMOTIDINE 20 MG/2 ML VIAL IV SCH (20:17)
[2023-05-23] MEDS: lisinopriL 5 MG TAB PO SCH (20:18)
[2023-05-24 06:01] LABS: Glucose,Whole Blood 124 mg/dL (70-110)
[2023-05-24] MEDS: INSULIN ASPART (NovoLOG) 100 UNIT/ML VIAL SQ SCH ×4 (06:08→21:22)
[2023-05-24] MEDS: METOPROLOL TARTRATE 25 MG TAB PO SCH (09:03)
[2023-05-24] MEDS: FAMOTIDINE 20 MG/2 ML VIAL IV SCH ×2 (09:03→20:34)
[2023-05-24] MEDS: metFORMIN 500 MG TAB PO SCH ×2 (09:03→20:33)
[2023-05-24] MEDS: HEPARIN SODIUM,PORCINE/PF 5,000 UNIT/0.5 ML SYRINGE SQ SCH ×2 (09:06→20:34)
--- NOTE | 2023-05-24 10:11 | P.PN ---
Subjective Progress Note Date: 05/24/23 HISTORY OF PRESENTING ILLNESS Patient is a 67-year-old male patient of Dr. Arredondo with history of coronary artery disease with prior PCI 2016 in 2019, preserved ejection fraction, hypertension, hyperlipidemia, prior tobacco abuse since quit, occasional marijuana use, diabetes mellitus type 2 . We have been asked to evaluate the patient for chest pain. Patient states that he was in an open house on Monday and developed dark blurry vision that happened briefly. He was sitting down when he went to move his arms and hands he did not have fluid movement of his arms and seemed to be jerky. He got up and walked but he was unsteady. He did not have any chest pain. He then was sitting with his and the symptoms went away completely. Yesterday he was back to normal old day and then in the evening he developed indigestion-like heartburn. His states he slept a lot yesterday. This morning he woke up he still had heartburn and was burping his face was feeling flushed. HEENT he also had some left jaw discomfort. His blood pressure was elevated at home. He denies having chest pain. He does relate that when he had his cardiac cath done last year was done because he had a "low drone" sensation in his head and he knew at that time he needed a stent. His last cardiac catheterization was in May noted below. EKG sinus rhythm with no acute ST changes Chest x-ray no acute cardiopulmonary process CBC is unremarkable. Electrolytes are normal. BUN 17 creatinine 0.98. Blood sugar 162. Troponin negative 2.. ProBNP 21. Liver function tests are normal. Magnesium 1.9. Home cardiac medications: Lisinopril 5 mg at bedtime, Lopressor 25 mg daily, Crestor 20 g at bedtime,Rybelsus 7 mg daily, metformin 500 mg daily Cardiac catheterization 05/2022 revealed patent stent in the LAD with mild disease, patent stent in left circumflex with mild disease, patent stent in the RCA with mild disease, normal LVEDP. PCI 12/2021 with successful stenting of the mid RCA and obtuse marginal Echocardiogram 12/2021 revealed EF of 60-65%, mild concentric left hypertrophy, aortic root dilated at 3.8 cm. No pericardial effusion. 05/24 Patient is seen today in follow-up. He continues to deny any chest pain. On telemetry, no irregular rhythms. He denies having any blurred vision, shaking episodes, no headache. Patient is to be seen by neurology today. Heart rate is in the 50s and 60s, blood pressure 131/81. Carotid ultrasound revealed less than 50% disease. PHYSICAL EXAMINATION Vital signs reviewed. CONSTITUTIONAL: No apparent distress. HEENT: Head is normocephalic. Pupils are equal, round. Sclerae anicteric. Mucous membranes of the mouth are moist. No JVD. No carotid bruit. CHEST: Lungs are clear to auscultation. No chest wall tenderness is noted on palpation or with deep breathing. HEART: Regular rate and rhythm. S1, S2 heard. No murmurs, gallops or rub. ABDOMEN: Soft, nontender. EXTREMITIES: 2+ peripheral pulses, no lower extremity edema. NEUROLOGIC EXAMINATION: Patient is awake, alert and oriented x3. ASSESSMENT Vague symptoms of blurred vision, jerking of the upper extremities No reported chest pain Gastroesophageal reflux disease Coronary artery disease with prior history PCI Hypertension Diabetes mellitus type 2 Dyspnea on exertion Previous tobacco abuse PLAN Continue patient's home cardiac medications Recommend obtaining neurology consult No further cardiac workup is needed at this time. Patient may follow up with Dr. Arredondo in the office. Patient is cleared from cardiology for discharge after neurology evaluation. Nurse practitioner note has been reviewed, I agree with the documented findings and plan of care. Patient was seen and examined. Objective - Vital Signs Vital signs: Vital Signs Temp 98 F 05/24/23 07:00 Pulse 63 05/24/23 07:00 Resp 16 05/24/23 07:00 BP 131/81 05/24/23 07:00 Pulse Ox 98 05/24/23 07:41 FiO2 Intake & Output 05/23/23 05/24/23 05/24/23 18:59 06:59 18:59 Intake Total 236 Balance 236 Weight 96.615 kg Intake: Oral 236 Other: Voiding Method Toilet # Voids 1 2 - Labs CBC & Chem 7: 05/23/23 06:23 05/23/23 06:23 Labs: Abnormal Lab Results - Last 24 Hours (Table) 05/23/23 05/23/23 05/23/23 Range/Units 12:45 17:38 20:15 POC Glucose (mg/dL) 132 H 140 H 165 H (70-110) mg/dL 05/24/23 Range/Units 05:59 POC Glucose (mg/dL) 124 H (70-110) mg/dL
--- NOTE | 2023-05-24 11:05 | CT ---
EXAMINATION TYPE: CT brain cspine wo con CT DLP: 1669.0 mGycm, Automated exposure control for dose reduction was used. DATE OF EXAM: 05/24/2023 10:55 AM COMPARISON: CT brain 11/25/2019. CLINICAL INDICATION:Male, 67 years old with history of Rule out seizure; Tremor activity TECHNIQUE: Brain: Multiple axial CT images of the brain were obtained without IV contrast. Cspine: Axial CT images from the skull base to the inferior aspect of T2 we obtained without intraven ous contrast. Coronal and sagittal reformatted images were also reviewed. FINDINGS: Brain: Extra-axial spaces: No abnormal extra-axial fluid collections. Ventricular system: Within normal limits Cerebral parenchyma: Cerebral atrophy. No acute intraparenchymal hemorrhage or mass effect. The schrader -white junction is well differentiated. Cerebellum: Unremarkable. Mass effect: No evidence of midline shift. Intracranial vasculature: unremarkable Soft tissues: Normal. Calvarium/osseous structures: No depressed skull fracture. Paranasal sinuses and mastoid air cells: Mastoid air cells are clear. Opacification the right mastoid air cells again. Visualized orbits: Bilateral aphakia Cervical spine: Fracture: None. Osseous structures: Multilevel degenerative disc disease changes with endplate spurring and disc oste ophyte complex's. Postsurgical changes from anterior cervical fusion involving C5-C6 with disc space and fusion. Vertebral alignment: Within normal limits. Spinal canal/Neural Foramina: Disc osteophyte complexes at C6-C7 with at least mild spinal canal sten osis. Facet joint uncovertebral joint arthropathy scattered throughout the cervical spine with varyin g degrees of neural foraminal stenosis. Neck soft tissues: Prevertebral soft tissues are within normal limits. Other: The airway is patent. The lung apices are clear. Minimal atherosclerotic calcification of the left carotid bulb. Calcified left thyroid lobe nodule measuring up to 2.5 cm. IMPRESSION: 1. No acute intracranial process. 2. Chronic right mastoid effusion. 3. No evidence of cervical spine fracture. 4. Mild multilevel degenerative disc disease. 5. Postsurgical changes from anterior cervical fusion C5-C6. 6. Calcified 2.5 cm left thyroid lobe nodule. This can be further evaluated with outpatient thyroid ultrasound.
[2023-05-24 12:23] LABS: Glucose,Whole Blood 150 mg/dL (70-110)
--- NOTE | 2023-05-24 12:33 | P.CNNES ---
History of Present Illness Consult date: 05/24/23 Requesting physician: Surya E Christoph Reason for Consult: jerky arm movement History of Present Illness: This is a 67-year-old gentleman with history of diabetes mellitus, diabetic peripheral neuropathy, coronary artery disease status post PCI in 2019, hypertension, hyperlipidemia who presented because of chest pain. Neurology is consulted because a jerky movements. Patient is accompanied with his was at bedside. According to patient this past Monday about 3 inch p.m. he stated that he was having abnormal movement of both hands like there are tremor and with confusion and had the blurry vision. He stated that he felt slightly confused. The episode lasted 50 minutes. He denied any urinary, bowel incontin ence or any tongue bite. The episode was not witnessed. But then he notified his what transpired and he was a little confused during the episode. According to the when he was speaking to her he was not confused. He does not have any history of seizures. He stated that he was having indigestion some chest pain during the Monday either morning or afternoon and had another one at nighttime. Currently feels back to baseline. I spoke with the primary attending and he stated that the he notified him that he had chest pain. It seems that he notified cardiology team that he did not aguilar ve any chest pain. Some of the workup during his hospital visit consisted of: Sodium, calcium, magnesium BUN/creatinine are within normal limits. On presentation the initial serum glucose is 162. CT of the head is reported as no acute intracranial process. Chronic right mastoid effusion. I personally reviewed the CT and I agree with the report that there is no acute process. There is no acute or subacute ischemia, mass effect, there is no bleed. CT cervical spine was reported as no evidence of cervical spine fracture. Mild multilevel degenerative disc disease. Postsurgical changes from the anterior cervical fusion C5-C6. Calcified 2.5 cm left thyroid lobe nodule. This can be further evaluated with outpatient thyroid ultrasound. Carotid duplex is reported as less than 50% stenosis of the carotid bifurcation. Review of Systems Review of system: The 12 point system was reviewed and apparent positive and negative per HPI. Past Medical History Past Medical History: Coronary Artery Disease (CAD), Chest Pain / Angina, Diabetes Mellitus, Hyperlipidemia, Hypertension Additional Past Medical History / Comment(s): N/V,Chronic NECK AND BACK PAIN, HX OF BROKEN NECK & BACK,mult hx bone fx's History of Any Multi-Drug Resistant Organisms: None Reported Past Surgical History: Heart Catheterization, Heart Catheterization With Stent, Hernia Repair, Orthopedic Surgery, Tonsillectomy Additional Past Surgical History / Comment(s): R thumb arthroplasty, Cervical vertebral crushed and surgically repaired, L foot spur removed, L knee arthroscopy, colonoscopy, bilateral eyelid surgery, left cataract removed, heart caths x2 with stents 2015 & 2018 , inguinal hernia x2, heart cath -no stents Past Anesthesia/Blood Transfusion Reactions: No Reported Reaction Additional Past Anesthesia/Blood Transfusion Reaction / Comment(s): no hx blood transfusion Date of Last Stent Placement:: 2018 Past Psychological History: Depression Smoking Status: Former smoker Past Alcohol Use History: Rare Past Drug Use History: Marijuana - Past Family History Father Family Medical History: Vascular Disorder Additional Family Medical History / Comment(s): Father had TB. He is . Mother Family Medical History: Diabetes Mellitus Additional Family Medical History / Comment(s): Mother had TB. She at age 75 yrs. Medications and Allergies Home Medications Medication Instructions Recorded Confirmed Type lisinopriL [Zestril] 5 mg PO HS 11/17/19 05/23/23 History Rosuvastatin [Crestor] 20 mg PO HS #0 11/20/19 05/23/23 Rx Omeprazole 20 mg PO DAILY 01/06/22 05/23/23 History Semaglutide [Rybelsus] 7 mg PO DAILY 01/06/22 05/23/23 History metFORMIN HCL ER [Glucophage XR] 500 mg PO DAILY 01/07/22 05/23/23 History Cetirizine HCl [Zyrtec] 10 mg PO DAILY PRN 05/23/23 05/23/23 History Metoprolol Tartrate [Lopressor] 25 mg PO DAILY 05/23/23 05/23/23 History Allergies Allergy/AdvReac Type Severity Reaction Status Date / Time sucralfate AdvReac Nausea & Verified 05/23/23 09:02 Vomiting Physical Examination - Vital Signs Vital Signs: Vital Signs Temp Pulse Resp BP Pulse Ox 05/24/23 07:41 98 05/24/23 07:00 98 F 63 16 131/81 98 05/24/23 01:58 98.4 F 59 L 12 105/64 97 05/23/23 19:50 97.9 F 57 L 18 127/74 97 05/23/23 14:03 97.8 F 59 L 16 112/69 100 Intake and Output 05/23/23 05/24/23 05/24/23 22:59 06:59 14:59 Intake Total 118 118 Balance 118 118 Intake: Oral 118 118 Other: Voiding Method Toilet # Voids 1 2 GENERAL: The patient is laying in bed and is not in acute distress. NEUROLOGICAL: Higher mental function: The patient is awake, alert, oriented to self, place and time. Patient is following commands. No aphasia and no neglect. Cranial nerves: The pupils are round, equal and reactive to light and accommodation. Visual whittington are full to confrontation throughout. Extraocular movement is intact no nystagmus is noted. Facial sensation is normal to touch throughout. The facial strength is normal throughout. Hearing is normal bilaterally to hand rub. Tongue is midline and moved [id number] without any difficulty. No dysarthria is noted. Shoulder shrug is normal bilaterally. Motor: The strength is 5 over 5 throughout. Normal tone and bulk. Cerebellum: Normal finger to nose heel to vazquez bilaterally. Sensation: Sensation is normal to touch throughout. Reflexes (right/left): 2+ throughout except ankles are 1+. Plantars are downgoing bilaterally. Results - Laboratory Findings CBC and BMP: 05/23/23 06:05/23/23 06:23 Abnormal Lab Findings: Abnormal Labs 05/23/23 05/23/23 05/23/23 06: 12:45 17:38 Glucose 162 H POC Glucose (mg/dL) 132 H 140 H Hemoglobin A1c 05/23/23 05/24/23 05/24/23 20:15 05:23 05:59 Glucose POC Glucose (mg/dL) 165 H 124 H Hemoglobin A1c 7.3 H Assessment and Plan Assessment: This is a 67-year-old gentleman who this past Monday had an episode of abnormal hand movements and the he felt was tremoring bilaterally with blurred vision of both eyes and some confusion and the episode had happened around 3ish PM. Denies any history of seizures. Patient complains of chest pain this past Monday. Transient episode of abnormal head movement with mild confusion and blurry vision lasting 15 minutes (05/21/23) : Unknown exact etiology. Rule out seizure. Transient ?acute chest pain this past Monday (notified primary, some members in ED team and notified me) Diabetes mellitus Diabetic peripheral neuropathy History of cervical fusion C5-C6 History of coronary artery disease status post PCI in 2019 History of hypertension Hyperlipidemia Plan: I ordered EEG to rule out any active seizure or discharges. Ordered MRI of the brain with and without to rule out any central cause for his episode. CT of the brain and carotid duplex are unremarkable I notified the patient that I do not feel comfortable him driving his camper (which he wants tomorrow) since unknown exact etiology of his transient confu shruthi with hand movement and I am concerned for ?seizure. I notified him to avoid driving for couple days at least to a week to avoid any further episodes similar to this. If patient is found to have seizures than he is to avoid driving for 6 month per [place] DM, avoid heights, swimming unassisted and avoid uses heavy machinery. Currently the patient is on aspirin 325 daily. Cardiology team is on board Lipid panel is ordered pending We'll defer the rest of the medical measure the primary team Upon discharge patient to follow-up with a neurologist as an outpatient within 1-2 weeks. The plan was discussed with the patient, his was at bedside and his nurse. Thank you for the consultation. UPDATE: Preliminary EEG report: Is abnormal. It showed highly suspicious of sharp and slow wave over the left temporal/central region with phase reversal over T5 which can increase risk for seizures. No seizure noted during study. I ordered a prolonged EEG fro tomorrow. If prolonged EEG does confirm discharges or seizure then recommend to pursue with antiepileptic drug use. I personally updated patient and his nurse accompanied me. Dr. Fajardo will start neurology service tomorrow A.M. Time with Patient: Greater than 30
--- NOTE | 2023-05-24 15:33 | P.PN ---
Subjective This is a pleasant 67 years old male with past medical history of coronary artery disease status post stent, diabetes mellitus, hypertension, hyperl ipidemia, chronic neck and back pain, depression. His PCPs Dr. De La Fuente Patient presents because of chest pain since Monday his chest pain was on and off, described as mild by the patient central with little back pain and little jaw pain, he had a little chest pain also this morning so he decided to come to emergency room. Endoscopic also has heartburn and indigestion, he denies any shortness of breath or coughing. No headache or dizziness weakness numbness. No GI or urinary symptoms. He denies smoking alcohol or illicit drugs Last Monday also reports some dizziness for about 15 minutes which resolved completely and suddenly. He was sitting in chair and he had difficulty standing up, eventually it could walk but with difficulty. Currently is completely resolved. No dizziness currently. Vitals stable Labs unremarkable including CBC and INR, BMP and liver enzymes. Troponin time was negative less than 0.012. Chest x-ray: No acute process EKG: Sinus bradycardia at [address]-T changes. 05/24/2023 patient looks comfortable and denies any symptoms today, at [facility], patient was willing he can be discharged today. Patient has been seen by cardiology team for possible chest pain however cardiology team thinks this is only heartburn. However they recommended urological workup for his stress. Of 15 minutes of dizziness and there are some report of jerking movement, I discussed the case with the neurologist who recommended MRI of the brain and EEG to rule out seizure other abnormality, since patient is willing to drive his vehicle upon discharge. With going to monitor the patient also on telemetry for 24 hours I discussed this plan with the agent and the at bedside and they are agreeable to stay until tomorrow Objective - Vital Signs Vital signs: Vital Signs Temp 98 F 05/24/23 07:00 Pulse 63 05/24/23 07:00 Resp 16 05/24/23 07:00 BP 131/81 05/24/23 07:00 Pulse Ox 98 05/24/23 07:41 FiO2 Intake & Output 05/23/23 05/24/23 05/24/23 18:59 06:59 18:59 Intake Total 236 118 Balance 236 118 Weight 96.615 kg Intake: Oral 236 118 Other: Voiding Method Toilet # Voids 1 2 - Exam GENERAL: The patient is alert and oriented x3, not in any acute distress. Well developed, well nourished. HEENT: Pupils are round and equally reacting to light. EOMI. No scleral icterus. No conjunctival pallor. Normocephalic, atraumatic. No pharyngeal erythema. No thyromegaly. CARDIOVASCULAR: S1 and S2 present. No murmurs, rubs, or gallops. PULMONARY: Chest is clear to auscultation, no wheezing , no crackles. ABDOMEN: Soft, nontender, nondistended, normoactive bowel sounds. No palpable organomegaly. MUSCULOSKELETAL: No joint swelling or deformity. EXTREMITIES: No cyanosis, clubbing, or pedal edema. NEUROLOGICAL: Gross neurological examination did not reveal any focal deficits. SKIN: No rashes. no petechiae. - Labs CBC & Chem 7: 05/23/23 06:23 05/23/23 06:23 Labs: Abnormal Lab Results - Last 24 Hours (Table) 05/23/23 05/23/23 05/24/23 Range/Units 17:38 20:15 05:23 POC Glucose (mg/dL) 140 H 165 H (70-110) mg/dL Hemoglobin A1c 7.3 H (<=6.0) % 05/24/23 05/24/23 Range/Units 05:59 12:21 POC Glucose (mg/dL) 124 H 150 H (70-110) mg/dL Hemoglobin A1c (<=6.0) % Assessment and Plan Assessment: Chest pain rule out cardiac causes. He followed by [employer]. Resolved reactive Transient period of confusion and weakness and jerking movement, his been evaluated by neurologist to rule out seizure versus other neurological abnormality Diabetes mellitus Hypertension Hyperlipidemia History of Coronary artery disease status post stent Plan: Continue with aspirin Cardiology consult. The patient Neurology consult recommended MRI of the brain and EEG and recommended going to monitor telemetry as it is on Labs and medication were reviewed.. Continue same treatment. Continue with symptomatic treatment. Resume home medication. Monitor labs and vitals. DVT and GI prophylaxis. Further recommendations as per clinical course of the patient DVT prophylaxis: Subcutaneous heparin GI Prophylaxis: Pepcid Prognosis is guarded
[2023-05-24 16:27] LABS: Chol/HDL Ratio 4.06 Ratio; LDL Cholesterol,Calculated 63.6 mg/dL (0.0-131.0)
[2023-05-24 17:27] LABS: Glucose,Whole Blood 137 mg/dL (70-110)
[2023-05-24] MEDS: lisinopriL 5 MG TAB PO SCH (20:33)
[2023-05-24 20:56] LABS: Glucose,Whole Blood 176 mg/dL (70-110)
--- NOTE | 2023-05-24 21:36 | EEG ---
ELECTROENCEPHALOGRAM REPORT CLINICAL HISTORY: This is a 67-year-old gentleman who had an abnormal movement of both hands with confusion and visual disturbance this past Monday. The video EEG is obtained to evaluate for seizure epileptiform activity. RELEVANT MEDICATION: The patient is not on any antiepileptic drugs. EEG TYPE: A routine 21-channel EEG is performed with video using the 10/20 electrode placement system. DESCRIPTION: Wakefulness and drowsiness are obtained. During awake state, the posterior- dominant rhythm consists of [id number] voltage of 10 to 11 hertz activity that is well modulated, well sustained. There is no physiological stage 2 sleep architecture. There is no focal slowing. Interictal and ictal is, there are rare spike and slow waves seen extending over the left temporal/central region and phase reversal over left T5 and is highly suspicious for epileptiform discharges. Otherwise, there is no seizure noted during the study. ACTIVATION PROCEDURE: Photic stimulation did evoke a posterior driving response and multiple photic stimulation. Otherwise, no abnormality noted during the photic stimulation. Hyperventilation is not performed. CLINICAL INTERPRETATION: This is an abnormal routine EEG. There is highly suspicious of spike slow waves over the left temporal central and a phase reversal over the T5 which can increase risk for seizure. Otherwise, no seizures noted during the study. The background is normal. There is no focal slowing. Consider prolonged EEG. Clinical correlation is recommended. CARLINE / HAKANN: [id number] / MTDD
[2023-05-25 05:53] LABS: Glucose,Whole Blood 136 mg/dL (70-110)
[2023-05-25] MEDS: INSULIN ASPART (NovoLOG) 100 UNIT/ML VIAL SQ SCH ×4 (06:24→20:53)
--- NOTE | 2023-05-25 08:14 | MR ---
EXAMINATION TYPE: MR brain wo/w con DATE OF EXAM: 05/25/2023 8:05 AM CLINICAL INDICATION:Male, 67 years old with history of Confusion with tremor; COMPARISON: 05/24/2023 TECHNIQUE: Multi planar, multi sequence imaging was performed through the brain including: T1, T2, In version recovery, susceptibility weighted imaging and gradient echo imaging and Diffusion weighted im aging. The patient was then given intravenous contrast and multi planar, T1 fat-saturation images wer e obtained. IV Contrast: 10 cc Gadavist FINDINGS: Cerebral atrophy with proportional dilation of ventricular system.. Diffusion-weighted imaging shows no evidence of restricted diffusion to suggest acute/subacute infarct. Intracranial arterial flow voi ds are maintained. Midline structures show no abnormality. Few Scattered foci of high T2 signal inten sity are seen within the periventricular white matter. The susceptibility weighted images do not reve al any evidence for micro-hemorrhage. After administration of gadolinium, no abnormal enhancement is seen. The bone marrow signal is within normal limits. Paranasal sinuses and mastoid air cells: Trace right mastoid air cell effusion. Visualized orbits: The lenses are surgically removed from the globes. IMPRESSION: 1. No evidence of intracranial mass, acute/subacute infarct, or abnormal enhancement. 2. Minimal Nonspecific white matter changes, likely related to small vessel ischemic disease
[2023-05-25] MEDS: METOPROLOL TARTRATE 25 MG TAB PO SCH (08:40)
[2023-05-25] MEDS: ASPIRIN 325 MG TAB PO SCH (08:40)
[2023-05-25] MEDS: HEPARIN SODIUM,PORCINE/PF 5,000 UNIT/0.5 ML SYRINGE SQ SCH ×2 (08:40→21:23)
[2023-05-25] MEDS: FAMOTIDINE 20 MG/2 ML VIAL IV SCH ×2 (08:41→21:23)
[2023-05-25] MEDS: metFORMIN 500 MG TAB PO SCH ×2 (08:41→21:22)
--- NOTE | 2023-05-25 09:50 | P.PN ---
Subjective Progress Note Date: 05/25/23 Patient initially seen by Dr. Gera Kelley. Please refer to his note for details. Patient is a 67-year-old male with history of diabetes, came to the hospital with unusual spell. Patient states that he was sitting in the chair, when he bent down to garbage pick up man a can that had rolled underneath his chair. As soon as he got up, he had a transient significant blurred vision, could not make out anything, that lasted for about 5 seconds. The vision came back, but then he noticed that he was having some mechanical movement of his hands bilaterally. He tried to get up, could not. However on the second attempt, he was able to get up, but while walking he felt mechanical movements in the legs. Symptoms im proved, and all symptoms resolved in about 15-20 minutes. There was no slurred speech, facial droop. No loss of consciousness, or alteration of consciousness. r EEG showed likely suspicious discharges on the left temporal region. Prolonged EEG has been ordered. Objective - Vital Signs Vital signs: Vital Signs Temp 98.0 F 05/25/23 07:00 Pulse 70 05/25/23 07:00 Resp 17 05/25/23 07:00 BP 121/76 05/25/23 07:00 Pulse Ox 97 05/25/23 07:00 FiO2 Intake & Output 05/24/23 05/25/23 05/25/23 18:59 06:59 18:59 Intake Total 354 125 Balance 354 125 Intake: Oral 354 125 Other: # Voids 3 2 - Exam On examination patient's mental status, speech and language functions are normal. Cranial nerves are normal. Visual whittington are full, face is symmetric and tongue protrudes to midline. On muscle strength testing there is no pronator drift and the strength is normal in arms and legs. No ataxia for [id number] testing. Sensory to touch is equal with no neglect. - Labs CBC & Chem 7: 05/23/23 06:23 05/23/23 06:23 Labs: Abnormal Lab Results - Last 24 Hours (Table) 05/24/23 05/24/23 05/24/23 Range/Units 05:23 12:21 17:23 POC Glucose (mg/dL) 150 H 137 H (70-110) mg/dL Triglycerides 206.00 H (0.00-149.00) mg/dL VLDL Cholesterol, Calc 41.20 H (5.00-40.00) mg/dL HDL Cholesterol 34.20 L (40.00-60.00) mg/dL 05/24/23 05/25/23 Range/Units 20:55 05:52 POC Glucose (mg/dL) 176 H 136 H (70-110) mg/dL Triglycerides (0.00-149.00) mg/dL VLDL Cholesterol, Calc (5.00-40.00) mg/dL HDL Cholesterol (40.00-60.00) mg/dL Assessment and Plan Assessment: This is a 67-year-old gentleman who this past Monday had an episode of abnormal hand movements and the he felt was tremoring bilaterally with blurred vision of both eyes and some confusion and the episode had happened around 3ish PM. Denies any history of seizures. Patient complains of chest pain this past Monday. Transient episode of abnormal head movement with mild confusion and blurry vision lasting 15 minutes (05/21/23) : Unknown exact etiology. Rule out seizure vs TIA. Transient ?acute chest pain this past Monday (notified primary, some members in ED team and notified me) Diabetes mellitus Diabetic peripheral neuropathy History of cervical fusion C5-C6 History of coronary artery disease status post PCI in 2019 History of hypertension Hyperlipidemia Plan: Routine EEG report: Is abnormal. It showed highly suspicious of sharp and slow wave over the left temporal/central region with phase reversal over T5 which can increase risk for seizures. No seizure noted during study. I personally reviewed EEG, does not appear epileptiform in nature. Patient underwent prolonged EEG today. Report pending. If prolonged EEG does confirm discharges or seizure then recommend to pursue with antiepileptic drug use. MRI of the brain with and without contrast revealed no evidence of intracranial mass, acute/subacute infarct, or abnormal enhancement. Minimal nonspecific white matter changes, likely related to small vessel ischemic disease. I personally reviewed MRI, agree with the findings. Carotid duplex are unremarkable Patient had an previous 2-D echo from 01/08/2022 showed normal left ventricular size, mild concentric LVH, EF is normal 60-65%. Aortic root is dilated measuring 3.8 cm. Cardiology already has seen the patient, cleared for discha rge. Patient's presenting symptoms are concerning of possible TIA. He does have multiple vascular risk factors. We will check 2-D echo with bubble study to rule out embolic source. Discussed with primary physician Dr. peacock, agreed with the management. Dr. Kelley has notified the patient that he does not feel comfortable him driving his camper (which he wants tomorrow) since unknown exact etiology of his transient confusion with hand movement and concerned for ?seizure. He notified him to avoid driving for couple days at least to a week to avoid any further episodes similar to this. If patient is found to have seizures than he is to avoid driving for 6 month per [place] DMV, avoid heights, swimming unassisted and avoid uses heavy machinery. Currently the patient is on aspirin 325 daily (at home patient was on aspirin 81 mg). Lipid panel revealed cholesterol 139, LDL 63, HDL 34, triglycerides 206. Patient was on Crestor 20 mg at bedtime. This is nonformulary in the hospital. We will switch to Lipitor 40 mg at bedtime. Hemoglobin A1c 7.3. Recommend optimize control of diabetes to target A1c < 7.0. We'll defer the rest of the medical measure the primary team Discharge pending reports of prolonged EEG and echo. Upon discharge patient to follow-up with a neurologist as an outpatient within 1-2 weeks.
[2023-05-25 14:37] VITALS: RESP 16
[2023-05-25 17:18] LABS: Glucose,Whole Blood 99 mg/dL (70-110)
--- NOTE | 2023-05-25 20:09 | P.PN ---
Subjective This is a pleasant 67 years old male with past medical history of coronary artery disease status post stent, diabetes mellitus, hypertension, hyperl ipidemia, chronic neck and back pain, depression. His PCPs Dr. De La Fuente Patient presents because of chest pain since Monday his chest pain was on and off, described as mild by the patient central with little back pain and little jaw pain, he had a little chest pain also this morning so he decided to come to emergency room. Endoscopic also has heartburn and indigestion, he denies any shortness of breath or coughing. No headache or dizziness weakness numbness. No GI or urinary symptoms. He denies smoking alcohol or illicit drugs Last Monday also reports some dizziness for about 15 minutes which resolved completely and suddenly. He was sitting in chair and he had difficulty standing up, eventually it could walk but with difficulty. Currently is completely resolved. No dizziness currently. Vitals stable Labs unremarkable including CBC and INR, BMP and liver enzymes. Troponin time was negative less than 0.012. Chest x-ray: No acute process EKG: Sinus bradycardia at [address]-T changes. 05/24/2023 patient looks comfortable and denies any symptoms today, at [facility], patient was willing he can be discharged today. Patient has been seen by cardiology team for possible chest pain however cardiology team thinks this is only heartburn. However they recommended urological workup for his stress. Of 15 minutes of dizziness and there are some report of jerking movement, I discussed the case with the neurologist who recommended MRI of the brain and EEG to rule out seizure other abnormality, since patient is willing to drive his vehicle upon discharge. With going to monitor the patient also on telemetry for 24 hours I discussed this plan with the agent and the at bedside and they are agreeable to stay until tomorrow 05/25/2023 Patient with known new symptom. He underwent EEG: There is abnormal highly suspicious spike of slow waves over the left temporal region which is highly suspicious for appendectomy. Deformed discharge which increased risk of seizure, otherwise no seizure activity was noted, consider a prolonged EEG Neurologist recommended prolonged EEG tomorrow and if still abnormal then antiseizure medication should be considered No chest pain or other new complaint Constipation on aspirin 325 mg, at home he was on 81 mg aspirin Objective - Vital Signs Vital signs: Vital Signs Temp 98.0 F 05/25/23 07:00 Pulse 59 L 06/29/23 08:00 Resp 17 05/25/23 08:00 BP 121/76 05/25/23 07:00 Pulse Ox 97 05/25/23 07:00 FiO2 Intake & Output 05/24/23 05/25/23 05/25/23 18:59 06:59 18:59 Intake Total 354 125 Balance 354 125 Intake: Oral 354 125 Other: Voiding Method Toilet # Voids 3 2 - Exam GENERAL: The patient is alert and oriented x3, not in any acute distress. Well developed, well nourished. HEENT: Pupils are round and equally reacting to light. EOMI. No scleral icterus. No conjunctival pallor. Normocephalic, atraumatic. No pharyngeal erythema. No thyromegaly. CARDIOVASCULAR: S1 and S2 present. No murmurs, rubs, or gallops. PULMONARY: Chest is clear to auscultation, no wheezing , no crackles. ABDOMEN: Soft, nontender, nondistended, normoactive bowel sounds. No palpable organomegaly. MUSCULOSKELETAL: No joint swelling or deformity. EXTREMITIES: No cyanosis, clubbing, or pedal edema. NEUROLOGICAL: Gross neurological examination did not reveal any focal deficits. SKIN: No rashes. no petechiae. - Labs CBC & Chem 7: 05/23/23 06:23 05/23/23 06:23 Labs: Abnormal Lab Results - Last 24 Hours (Table) 05/24/23 05/24/23 05/24/23 Range/Units 05:23 17:23 20:55 POC Glucose (mg/dL) 137 H 176 H (70-110) mg/dL Triglycerides 206.00 H (0.00-149.00) mg/dL VLDL Cholesterol, Calc 41.20 H (5.00-40.00) mg/dL HDL Cholesterol 34.20 L (40.00-60.00) mg/dL 05/25/23 Range/Units 05:52 POC Glucose (mg/dL) 136 H (70-110) mg/dL Triglycerides (0.00-149.00) mg/dL VLDL Cholesterol, Calc (5.00-40.00) mg/dL HDL Cholesterol (40.00-60.00) mg/dL Assessment and Plan Assessment: Chest pain rule out cardiac causes. He followed by regional director of admissions. Resolved reactive Transient period of confusion and weakness and jerking movement, his been evaluated by neurologist to rule out seizure versus other neurological abnormality Diabetes mellitus Hypertension Hyperlipidemia History of Coronary artery disease status post stent Plan: Continue with aspirin Cardiology consult. The patient Neurology consult recommended MRI of the brain and EEG and recommended going to monitor telemetry as it is on Labs and medication were reviewed.. Continue same treatment. Continue with symptomatic treatment. Resume home medication. Monitor labs and vitals. DVT and GI prophylaxis. Further recommendations as per clinical course of the patient DVT prophylaxis: Subcutaneous heparin GI Prophylaxis: Pepcid Prognosis is guarded
[2023-05-25 20:34] LABS: Glucose,Whole Blood 121 mg/dL (70-110)
[2023-05-25] MEDS: lisinopriL 5 MG TAB PO SCH (21:22)
[2023-05-26 06:03] LABS: Glucose,Whole Blood 117 mg/dL (70-110)
[2023-05-26] MEDS: INSULIN ASPART (NovoLOG) 100 UNIT/ML VIAL SQ SCH ×2 (06:04→12:44)
[2023-05-26] MEDS ORDERED: ASPIRIN 325 MG TAB PO SCH (09:00)
[2023-05-26] MEDS: metFORMIN 500 MG TAB PO SCH (09:50)
[2023-05-26] MEDS: METOPROLOL TARTRATE 25 MG TAB PO SCH (09:51)
[2023-05-26] MEDS: FAMOTIDINE 20 MG/2 ML VIAL IV SCH (09:51)
[2023-05-26] MEDS: HEPARIN SODIUM,PORCINE/PF 5,000 UNIT/0.5 ML SYRINGE SQ SCH (09:52)
[2023-05-26 12:35] LABS: Glucose,Whole Blood 136 mg/dL (70-110)
--- NOTE | 2023-05-26 13:24 | CA ---
Transthoracic Echo Report Name: Feliciano Valadez Age: 67 Gender: M : 1955 Exam Date: 05/26/2023 09:03 Exam Location: [facility] Ht (in): 73 Wt (lb): 213 Ordering Physician: Zoey Fajardo MD Attending/Referring Phys: Audio Visual Secretary Ben Ball Procedure CPT: Indications: Transient diplopia, weakness, rule out TIA Cardiac Hx: Technical Quality: Fair Contrast 1: Total Dose (mL): Contrast 2: Total Dose (mL): MEASUREMENTS (Male / Female) Normal Values 2D ECHO LV Diastolic Diameter PLAX 4.9 cm 4.2 - 5.9 / 3.9 - 5.3 cm LV Systolic Diameter PLAX 3.0 cm IVS Diastolic Thickness 1.2 cm 0.6 - 1.0 / 0.6 - 0.9 cm LVPW Diastolic Thickness 1.2 cm 0.6 - 1.0 / 0.6 - 0.9 cm LV Relative Wall Thickness 0.5 RV Internal Dim ED PLAX 2.3 cm LVOT Diameter 2.1 cm Aortic Root Diameter 2.9 cm LA Systolic Diameter LX 2.7 cm 3.0 - 4.0 / 2.7 - 3.8 cm LV Diastolic Volume MOD BP 74.0 cm??? 67 - 155 / 56 - 104 cm??? LV Systolic Volume MOD BP 23.0 cm??? 22 - 58 / 19 - 49 cm??? LV Ejection Fraction MOD BP 68.9 % >= 55 % LV Diastolic Volume MOD 4C 85.2 cm??? LV Systolic Volume MOD 4C 17.5 cm??? LV Ejection Fraction MOD 4C 79.5 % LV Diastolic Length 4C 7.2 cm LV Systolic Length 4C 6.0 cm LV Diastolic Volume MOD 2C 61.6 cm??? LV Systolic Volume MOD 2C 29.0 cm??? LV Ejection Fraction MOD 2C 52.9 % LV Diastolic Length 2C 7.6 cm LV Systolic Length 2C 6.4 cm LA Volume 38.4 cm??? 18 - 58 / 22 - 52 cm??? Ascending Aorta Diameter 2.9 cm DOPPLER AV Peak Velocity 125.0 cm/s AV Peak Gradient 6.3 mmHg LVOT Peak Velocity 86.0 cm/s LVOT Peak Gradient 3.0 mmHg AV Area Cont Eq pk 2.3 cm??? MV Peak Velocity 98.0 cm/s MV Peak Gradient 3.8 mmHg MV Mean Velocity 50.6 cm/s MV Mean Gradient 1.2 mmHg MV Velocity Time Integral 41.1 cm Mitral E Point Velocity 76.0 cm/s Mitral A Point Velocity 86.2 cm/s Mitral E to A Ratio 0.9 MV Deceleration Time 263.5 ms TR Peak Velocity 174.3 cm/s TR Peak Gradient 12.2 mmHg Right Ventricular Systolic Press 17.2 mmHg FINDINGS Left Ventricle Mildly increased septal wall thickness. Normal LV size. Left ventricular ejection fraction is estimated at _50-55 %. Right Ventricle Normal right ventricular size. RVSP= 17mmhg Right Atrium Normal right atrial size. Left Atrium Normal left atrial size. Mitral Valve Structurally normal mitral valve. No mitral regurgitation. No mitral stenosis. Aortic Valve Trileaflet aortic valve. Tricuspid Valve Structurally normal tricuspid valve. Mild TR. Pulmonic Valve Pulmonic valve not well visualized. No pulmonic regurgitation. Pericardium Normal pericardium. Aorta Normal size aortic root and proximal ascending aorta. CONCLUSIONS Normal LV size and systolic function. Mild tricuspid regurgitation. No pericardial effusion. Negative bubble study no shunt Previewed by: Dr. Berhane Clifford MD (Electronically Signed) Final Date: 26 May 2023 13:23
[2023-05-26 15:46] VITALS: BP 115/71; PULSE 61; TEMP 98.3
[2023-05-26] MEDS ORDERED: ATORVASTATIN 40 MG TAB PO SCH (21:00)
--- NOTE | 2023-05-26 22:56 | EEG ---
ELECTROENCEPHALOGRAM REPORT ELECTROENCEPHALOGRAM (EEG) REPORT: TECHNIQUE: This is a report from a prolonged 18 -channel digital EEG performed using the 10/20 international electrode placement system. HISTORY: The patient presented with chest pain/discomfort and had a witnessed episode of seizure- like activity where his upper extremities started to shake for a couple of minutes and his vision was blurred and he was confused afterwards. OTHER MEDICAL HISTORY: Includes coronary artery disease, diabetes, hyperlipidemia, hypertension. CURRENT MEDICATIONS: 1. Aspirin. 2. Pepcid. 3. Insulin. 4. Zestril. 5. Claritin. 6. Metformin. 7. Lopressor. FINDINGS: STUDY DURATION: 93 minutes. Start time was 11:41 a.m. End time was 1:15 p.m. EVENTS: During this prolonged EEG, no clinical or electrographic seizures were recorded. BACKGROUND: The background activity consists of 8 to 9 hertz rhythmic waveforms, symmetric through both posterior quadrants. ACTIVATION: Hyperventilation: Not performed. Photic stimulation: Symmetric driving seen. Sleep: Stages I and II sleep noted. ABNORMALITIES: None. IMPRESSION: Normal EEG. No seizures were recorded. No epileptiform activity was present. These findings were called to the consulting neurologist at 3:42 p.m. on 05/26/2023, please note there was a delay in this read. The database was not accessible on the afternoon of 05/25/2023. MMSCOTTYL / IJN: [id number] /
--- NOTE | 2023-05-26 23:51 | P.DS ---
Providers Date of admission: 05/24/23 11:27 Attending physician: Surya Hawthorne MD Consults: 05/23/23 08:01 Consult Physician Urgent Consulting Provider: Daja Arredondo Consult Reason/Comments: chest pain Do you want consulting provider notified?: Yes 05/24/23 06:50 Consult Physician Routine Consulting Provider: Gera Kelley Consult Reason/Comments: jerky arm movements Do you want consulting provider notified?: Yes Primary care physician: Inocente De La Fuente [facility] Course: Diagnoses: -Chest pain. He followed by reversing mill roller. Resolved reactive -Transient period of confusion and weakness and jerking movement, his been evaluated by neurologist, workup was unremarkable, no specific cause could be found, but the dehydration versus TIA versus others -2.5 cm left thyroid nodule, patient and are aware and they going to follow up with insurance account executive Dr. Lyle as they advised in 2 weeks and they agree. There were first including but not limited to cancer. -Diabetes mellitus -Hypertension -Hyperlipidemia -History of Coronary artery disease status post stent Hospital course: This is a pleasant 67 years old male with past medical history of coronary artery disease status post stent, diabetes mellitus, hypertension, hyperlipidemia, chronic neck and back pain, depression. His PCPs Dr. De La Fuente Patient presents because of chest pain since Monday his chest pain however this most likely was musculoskeletal transient and resolved, evaluated by reversing mill roller who was not much concerned about his chest pain which is resolved since admission but the reversing mill roller recommended further workup regarding that episode when become difficult for him to stand up from sitting position associated with jerking movements of the upper extremity that lasted about 15 minutes and resolved spontaneously. Patient developed by neurologist and he has extensive workup including carotid duplex, CT of the head and neck, MRI of the brain and regular and prolonged EEG, workup was unremarkable to find the cause for patient's symptoms, no cause specifically could be identified, differential diagnosis including dehydration, transient ischemic attack because of this and as per my discussion with the neurologist we thought that the benefits more than the risk to increase his dose of aspirin 81 mg he takes at home and to 162 mg daily, patient was instructed to continue this dose for [address] his PCP Dr. De La Fuente whether to cut back to 81 mg daily or continue the same dose of 162 mg daily and he agrees. Risks including but not limited to bleeding explained to the patient extensively and he agrees to continue with treatment 4 since on the day of discharge patient denies any other symptoms other new. He was cleared for discharge by neurologist. Management Department Chair already site of the case. Problems and management plan were discussed with the patient and he verbalized understanding and acceptance Patient was found stable and can be discharged home in guarded prognosis however he needs follow-up as an outpatient. Patient was instructed to follow up with PCP within one week and patient agrees patient was instructed to follow up with the neurologist Dr. Rosenthal in one week and he agrees. Patient also was instructed to follow up with the reversing mill roller Dr. Arredondo Physical exam Gen: patient is a AAOx3, no distress CVS: S1-S2, RRR, no murmur Lungs: B/L CTA, no wheezing Abdomen: soft, no distention, no tenderness, positive bowel sounds Extremity: no leg edema or induration Time spent more than 35 minutes Patient Condition at Discharge: Fair Plan - Discharge Summary New Discharge Prescriptions: New Aspirin [Vazalore] 162 mg PO DAILY #60 capsule Continue lisinopriL [Zestril] 5 mg PO HS Rosuvastatin [Crestor] 20 mg PO HS #0 Semaglutide [Rybelsus] 7 mg PO DAILY metFORMIN HCL ER [Glucophage XR] 500 mg PO DAILY Metoprolol Tartrate [Lopressor] 25 mg PO DAILY Cetirizine HCl [Zyrtec] 10 mg PO DAILY PRN PRN Reason: Allergy Symptoms Omeprazole 20 mg PO DAILY Discharge Medication List lisinopriL [Zestril] 5 mg PO HS 11/17/19 [History] Rosuvastatin [Crestor] 20 mg PO HS #0 11/20/19 [Rx] Omeprazole 20 mg PO DAILY 01/06/22 [History] Semaglutide [Rybelsus] 7 mg PO DAILY 01/06/22 [History] metFORMIN HCL ER [Glucophage XR] 500 mg PO DAILY 01/07/22 [History] Cetirizine HCl [Zyrtec] 10 mg PO DAILY PRN 05/23/23 [History] Metoprolol Tartrate [Lopressor] 25 mg PO DAILY 05/23/23 [History] Aspirin [Vazalore] 162 mg PO DAILY #60 capsule 05/26/23 [Rx] Follow up Appointment(s)/Referral(s): Daja Arredondo MD [STAFF PHYSICIAN] - 3 Weeks Inocente De La Fuente DO [Primary Care Provider] - 1-2 days Koby Robin MD [REFERRING] - 2 Weeks (Forming Operator- 4 year 2.5 cm thyroid nodule) Patient Instructions/Handouts: Chest Pain (DC) Activity/Diet/Wound Care/Special Instructions: Heart healthy diet Activity is restricted till you see your doctor We recommend to double your aspirin 81 mg oral dose into 162 mg daily 1 month [30 days]... Then discuss it with you PCP Dr. De La Fuente whether to continue the high-dose 162 mg or go back to the 81 mg of aspirin Discharge Disposition: HOME SELF-CARE
--- NOTE | 2023-05-27 10:55 | P.PN ---
Subjective Progress Note Date: 05/26/23 05/26/2023: Patient was seen for follow-up. Patient's was also present. After speaking to patient's family in detail, it appears that patient was probably dehydrated. They mentioned that patient worked in the yard in very hot weather for about 4 hours straight. At 3 PM, he went to an open house, ate 2 pieces of chicken, but did not drink water. He did drink half of a can of beer, instead of drinking water. It is shortly after his symptoms started. Patient states that he drank 2 big bottle of water and the symptoms resolved. 05/25/2023: Patient initially seen by Dr. Gera Kelley. Please refer to his note for details. Patient is a 67-year-old male with history of diabetes, came to the hospital with unusual spell. Patient states that he was sitting in the chair, when he bent down to mushroom picker a can that had rolled underneath his chair. As soon as he got up, he had a transient significant blurred vision, could not make out anything, that lasted for about 5 seconds. The vision came back, but then he noticed that he was having some mechanical movement of his hands bilaterally. He tried to get up, could not. However on the second attempt, he was able to get up, but while walking he felt mechanical movements in the legs. Symptoms improved, and all symptoms resolved in about 15-20 minutes. There was no slurred speech, facial droop. No loss of consciousness, or alteration of consciousness. r EEG showed likely suspicious discharges on the left temporal region. Prolonged EEG has been ordered. Objective - Vital Signs Vital signs: Vital Signs Temp 98.3 F 05/26/23 15:00 Pulse 61 05/26/23 15:00 Resp 16 05/26/23 15:00 BP 115/71 05/26/23 15:00 Pulse Ox 96 05/26/23 15:00 FiO2 Intake & Output 05/26/23 05/27/23 05/27/23 18:59 06:59 18:59 Intake Total 354 Balance 354 Intake: Oral 354 Other: # Voids 2 - Exam On examination patient's mental status, speech and language functions are normal. Cranial nerves are normal. Visual [place] are full, face is symmetric and tongue protrudes to midline. On muscle strength testing there is no pronator drift and the strength is normal in arms and legs. No ataxia for [id number] testing. Sensory to touch is equal with no neglect. - Labs CBC & Chem 7: 05/23/23 06:23 05/23/23 06:23 Labs: Abnormal Lab Results - Last 24 Hours (Table) 05/26/23 Range/Units 12:34 POC Glucose (mg/dL) 136 H (70-110) mg/dL Assessment and Plan Assessment: This is a 67-year-old gentleman who this past Monday had an episode of abnormal hand movements and the he felt was tremoring bilaterally with blurred vision of both eyes and some confusion and the episode had happened around 3ish PM. Denies any history of seizures. Symptoms likely due to dehydration from working outside, eating, but not drinking water. Symptoms resolved after he drank two big bottles of water. Differential diagnosis includes TIA, but less likely because symptoms were bilateral involving the vision, as well as in the extremities. Diabetes mellitus Diabetic peripheral neuropathy History of cervical fusion C5-C6 History of coronary artery disease status post PCI in 2019 History of hypertension Hyperlipidemia Plan: Routine EEG report: Is abnormal. It showed highly suspicious of sharp and slow wave over the left temporal/central region with phase reversal over T5 which can increase risk for seizures. No seizure noted during study. I personally reviewed EEG, does not appear epileptiform in nature. Prolonged EEG was normal. No seizures were recorded. No epileptiform activity was present. No indication for antiepileptic medication. MRI of the brain with and without contrast revealed no evidence of intracranial mass, acute/subacute infarct, or abnormal enhancement. Minimal nonspecific white matter changes, likely related to small vessel ischemic disease. I personally reviewed MRI, agree with the findings. Carotid duplex are unremarkable 2-D echo with bubble study revealed normal left ventricular size and systolic function. Negative bubble study with no shunt. Dr. Kelley has notified the patient that he does not feel comfortable him driving his camper (which he wants tomorrow) since unknown exact etiology of his transient confusion with hand movement and concerned for ?seizure. He notified him to avoid driving for couple days at least to a week to avoid any further episodes similar to this. If patient is found to have seizures than he is to avoid driving for 6 month per [facility], avoid heights, swimming unassisted and avoid uses heavy machinery. Currently the patient is on aspirin 325 daily (at home patient was on aspirin 81 mg). Lipid panel revealed cholesterol 139, LDL 63, HDL 34, triglycerides 206. Patient was on Crestor 20 mg at bedtime. This is nonformulary in the hospital. We will switch to Lipitor 40 mg at bedtime. Hemoglobin A1c 7.3. Recommend optimize control of diabetes to target A1c < 7.0. Recommend patient take 2 baby aspirins for 30 days, then decrease to 1 tablet daily. Neurologically clear for discharge.
== END 2023-05-26 17:07 | disposition home or self-care (01) ==
LOC: EC 06:09 → 6NMEDSUR 08:28 → OBSVTOIN 05-24 11:27 → INTOOBSV 05-24 11:27 → UNDODISIN 05-26 17:07
PROVIDERS: ADMIT Internal Medicine; ATTEND Internal Medicine
PROC: 4A10X4Z Monitoring of Central Nervous Electrical Activity, External Approach (ICD-10-PCS; principal; 2023-05-24)
DX: R07.89 Other chest pain (principal); H53.8 Other visual disturbances; R41.0 Disorientation, unspecified; R25.9 Unspecified abnormal involuntary movements; I25.10 Atherosclerotic heart disease of native coronary artery without angina pectoris; E11.42 Type 2 diabetes mellitus with diabetic polyneuropathy; I10 Essential (primary) hypertension; K21.9 Gastro-esophageal reflux disease without esophagitis; E04.1 Nontoxic single thyroid nodule; I65.29 Occlusion and stenosis of unspecified carotid artery; I07.1 Rheumatic tricuspid insufficiency; E78.5 Hyperlipidemia, unspecified; R00.1 Bradycardia, unspecified; G89.29 Other chronic pain; M54.9 Dorsalgia, unspecified; M50.322 Other cervical disc degeneration at C5-C6 level; F32.A Depression, unspecified; Z79.02 Long term (current) use of antithrombotics/antiplatelets; Z79.82 Long term (current) use of aspirin; Z79.84 Long term (current) use of oral hypoglycemic drugs; Z79.1 Long term (current) use of non-steroidal anti-inflammatories (NSAID); Z79.899 Other long term (current) drug therapy; Z88.8 Allergy status to other drugs, medicaments and biological substances; Z95.5 Presence of coronary angioplasty implant and graft; Z98.42 Cataract extraction status, left eye; Z86.39 Personal history of other endocrine, nutritional and metabolic disease; Z87.891 Personal history of nicotine dependence; Z98.1 Arthrodesis status; Z98.890 Other specified postprocedural states; Z82.49 Family history of ischemic heart disease and other diseases of the circulatory system; Z83.3 Family history of diabetes mellitus; Z83.1 Family history of other infectious and parasitic diseases
CPT/HCPCS: 96376 ×3; 96372; 96374; 99285; 36415; 94760; 95816; 95813; 93005; 93306; 83880; 80061; 80053; 83735; 84484; 85025; 85610; 85730; 83036; 71046; 93880; 72125; 70450; 70553; G0378 ×4; J1644; A9585

== ENCOUNTER 2023-11-07 15:17 | Observation (INO) | payer MEDICARE ==
--- NOTE | 2023-11-07 15:42 | ED ---
Chest Pain HPI - General Source: patient, RN notes reviewed Mode of arrival: ambulatory Limitations: no limitations <Brad Disla - Last Filed: 11/07/23 15:41> <Benji Beck - Last Filed: 11/07/23 21:27> - General Chief Complaint: Chest Pain Stated Complaint: CHEST PAIN Time Seen by Provider: 11/07/23 15:41 - History of Present Illness Initial Comments: 68-year-old male presents emergency Department with chief complaint of chest pain. Patient states having increasing symptoms a recent. He's had 5 prior cardiac stents. Patient had an appointment with Dr. Arredondo today with symptoms worsen surgery present emergency department. He states he had a near syncopal event pain radiating to his left jaw. This is very similar symptoms she had the past. (Brad Disla) - Related Data Home Medications Medication Instructions Recorded Confirmed lisinopriL [Zestril] 5 mg PO HS 11/17/19 05/23/23 Omeprazole 20 mg PO DAILY 01/06/22 05/23/23 Semaglutide [Rybelsus] 7 mg PO DAILY 01/06/22 05/23/23 metFORMIN HCL ER [Glucophage XR] 500 mg PO DAILY 01/07/22 05/23/23 Cetirizine HCl [Zyrtec] 10 mg PO DAILY PRN 05/23/23 05/23/23 Metoprolol Tartrate [Lopressor] 25 mg PO DAILY 05/23/23 05/23/23 Previous Rx's Medication Instructions Recorded Rosuvastatin [Crestor] 20 mg PO HS #0 11/20/19 Aspirin [[place]] 162 mg PO DAILY #60 capsule 05/26/23 Allergies Allergy/AdvReac Type Severity Reaction Status Date / Time sucralfate AdvReac Nausea & Verified 11/07/23 15:26 Vomiting Review of Systems ROS Other: All systems not noted in ROS Statement are negative. <Brad Disla - Last Filed: 11/07/23 15:41> ROS Other: All systems not noted in ROS Statement are negative. <Benji Beck - Last Filed: 11/07/23 21:27> ROS Statement: Those systems with pertinent positive or pertinent negative responses have been documented in the HPI. Past Medical History Past Medical History: Coronary Artery Disease (CAD), Chest Pain / Angina, Diabetes Mellitus, Hyperlipidemia, Hypertension Additional Past Medical History / Comment(s): N/V,Chronic NECK AND BACK PAIN, HX OF BROKEN NECK & BACK,mult hx bone fx's History of Any Multi-Drug Resistant Organisms: None Reported Past Surgical History: Heart Catheterization, Heart Catheterization With Stent, Hernia Repair, Orthopedic Surgery, Tonsillectomy Additional Past Surgical History / Comment(s): R thumb arthroplasty, Cervical vertebral crushed and surgically repaired, L foot spur removed, L knee arthroscopy, colonoscopy, bilateral eyelid surgery, left cataract removed, heart caths x2 with stents 2015 & 2018 , inguinal hernia x2, heart cath -no stents Past Anesthesia/Blood Transfusion Reactions: No Reported Reaction Additional Past Anesthesia/Blood Transfusion Reaction / Comment(s): no hx blood transfusion Date of Last Stent Placement:: 2018 Past Psychological History: Depression Smoking Status: Former smoker Past Alcohol Use History: Rare Past Drug Use History: Marijuana - Past Family History Father Family Medical History: Vascular Disorder Additional Family Medical History / Comment(s): Father had TB. He is . Mother Family Medical History: Diabetes Mellitus Additional Family Medical History / Comment(s): Mother had TB. She at age 75 yrs. <Brad Disla - Last Filed: 11/07/23 15:41> General Exam Limitations: no limitations <Brad Disla - Last Filed: 11/07/23 15:41> - General Exam Comments Initial Comments: Visual Physical Exam Vital signs reviewed General: Well-appearing, nontoxic, no acute distress. Head: Normocephalic, atraumatic Eyes: PERRLA, EOMI ENT: Airway patent Chest: Nonlabored breathing Skin: No visual rash, normal skin tone Neuro: Alert and oriented 3 Musculoskeletal: No gross abnormalities (Brad Disla) Course Vital Signs 11/07/23 15:23 Temperature 97.9 F Pulse Rate 62 Respiratory 18 Rate Blood Pressure 131/73 O2 Sat by Pulse 99 Oximetry Chest Pain [facility] <Brad Disla - Last Filed: 11/07/23 15:41> <Benji Beck - Last Filed: 11/07/23 21:27> - MDM I completed the quick note portion of this chart signed Brad Disla PA-C (Brad Disla) Was pt. sent in by a medical professional or institution ([facility], [facility] [employer], urgent care, hospital, or [facility]...) When possible be specific @ -[No] Did you speak to anyone other than the patient for history (EMS, parent, family, police, friend...)? What history was obtained from this source @ -[No] Did you review nursing and triage notes (agree or disagree)? Why? @ -[I reviewed and agree with nursing and triage notes] Were old charts reviewed (outside hosp., previous admission, EMS record, old EKG, old radiological studies, urgent care reports/EKG's, [facility] records)? Report findings @ -[No old charts were reviewed] Differential Diagnosis (chest pain, altered mental status, abdominal pain women, abdominal pain men, vaginal bleeding, weakness, fever, dyspnea, syncope, headache, dizziness, GI bleed, back pain, seizure, CVA, palpatations, mental health, musculoskeletal)? @ -[not applicable] EKG interpreted by me (3pts min.). @ Sinus rhythm, left axis, right bundle-branch block, no ST segment elevation, rate of 61, NE interval 167, QRS duration 174, QTC 443 X-rays interpreted by me (1pt min.). @ Patchy bilateral lower lobe infiltrate CT interpreted by me (1pt min.). @ -[None done] U/S interpreted by me (1pt. min.). @ -[None done] What testing was considered but not performed or refused? (CT, X-rays, U/S, labs)? Why? @ -[None] What meds were considered but not given or refused? Why? @ -[None] Did you discuss the management of the patient with other professionals (professionals i.e. [facility], [facility] [employer], lab, RT, psych nurse, outreach and education social worker, quarantine inspector, teacher, traffic police officer, medical case worker)? Give summary @ -[EMH Was smoking cessation discussed for >3mins.? @ -[No] Was critical care preformed (if so, how long)? @ -[No] Were there social determinants of health that impacted care today? How? (Homelessness, low income, unemployed, alcoholism, drug addiction, transportation, low edu. Level, literacy, decrease access to med. care, correction, rehab)? @ -[No] Was there de-escalation of care discussed even if they declined (Discuss DNR or withdrawal of care, Hospice)? DNR status @ -[No] What co-morbidities impacted this encounter? (DM, HTN, Smoking, COPD, CAD, Can cer, CVA, ARF, Chemo, Hep., AIDS, mental health diagnosis, sleep apnea, morbid obesity)? @ -[CAD Was patient admitted / discharged? Hospital course, mention meds given and route, prescriptions, significant lab abnormalities, going to OR and other pertinent info. @ -60-year-old male presenting with an episode of chest tightness with associat ed jaw pain and lightheadedness. Patient is in sinus rhythm without ST segment elevation. Chest x-ray negative for focal pneumonia with a subtle bilateral infiltrate. No fever. No leukocytosis. No dyspnea. Patient has normal CBC, normal CMP, negative initial troponin. Patient will be observed overnight with serial cardiac enzymes, telemetry, cardiology consultation. Undiagnosed new problem with uncertain prognosis? @ -[No] Drug Therapy requiring intensive monitoring for toxicity (Heparin, Nitro, Insulin, Cardizem)? @ -[No] Were any procedures done? @ -[No] Diagnosis/symptom? @Chest Pain rule out Acute, or Chronic, or Acute on Chronic? @ ACUTE Uncomplicated (without systemic symptoms) or Complicated (systemic symptoms)? @ -Complicated Side effects of treatment? @ -[No] Exacerbation, Progression, or Severe Exacerbation? @ -[No] Poses a threat to life or bodily function? How? (Chest pain, [place], PR, pneumonia, PE, COPD, DKA, ARF, appy, cholecystitis, CVA, Diverticulitis, Homicidal, Suicidal, threat to staff... and all critical care pts) @ -[yes, CP (Benji Beck) Disposition <Brad Disla - Last Filed: 11/07/23 15:41> Is patient prescribed a controlled substance at d/c from ED?: No Time of Disposition: 21:27 <Benji Beck - Last Filed: 11/07/23 21:27> Clinical Impression: Chest pain Disposition: ADMITTED IP TO THIS HOSP Condition: Stable Referrals: Laurel High MD [Primary Care Provider] - 1-2 days
[2023-11-07 16:01] LABS: Basophils # (A) 0.1 k/uL (0-0.2); Basophils % (A) 1 %; Eosinophils # (A) 0.1 k/uL (0-0.7); Eosinophils % (A) 2 %; HCT 42.2 % (39.0-53.0); HGB 13.8 gm/dL (13.0-17.5); Lymphocytes # (A) 2.4 k/uL (1.0-4.8); Lymphocytes % (A) 28 %; MCH 29.1 pg (25.0-35.0); MCHC 32.7 g/dL (31.0-37.0); MCV 89.2 fL (80.0-100.0); Monocytes # (A) 0.4 k/uL (0-1.0); Monocytes % (A) 5 %; Neutrophils # (A) 5.5 k/uL (1.3-7.7); Neutrophils % (A) 63 %; Platelet Count 257 k/uL (150-450); RBC 4.73 m/uL (4.30-5.90); RDW 13.5 % (11.5-15.5); WBC 8.7 k/uL (3.8-10.6)
[2023-11-07 16:11] LABS: ALT 18 U/L (4-49); AST 26 U/L (17-59); African American GFR (CKD) >90 (>60 ml/min/1.73 sqM); Alkaline Phosphatase 78 U/L (38-126); Anion Gap 12 mmol/L; Blood Urea Nitrogen 16 mg/dL (9-20); Calcium 9.2 mg/dL (8.4-10.2); Carbon Dioxide 23 mmol/L (22-30); Chloride 106 mmol/L (98-107); Glucose 114 mg/dL (74-99); Magnesium 1.9 mg/dL (1.6-2.3); Non-African American GFR(CKD) 89 (>60 ml/min/1.73 sqM); Potassium 4.1 mmol/L (3.5-5.1); Sodium 141 mmol/L (137-145); Total Bilirubin 0.4 mg/dL (0.2-1.3); Total Protein 6.5 g/dL (6.3-8.2)
[2023-11-07 16:15] LABS: Partial Thromboplastin Time 24.9 sec (22.0-30.0)
--- NOTE | 2023-11-07 16:31 | XR ---
EXAMINATION TYPE: XR chest 2V DATE OF EXAM: 11/07/2023 COMPARISON: 05/23/2023 HISTORY: 68-year-old male with chest pain TECHNIQUE: PA and lateral views FINDINGS: Heart normal size. Aorta and pulmonary vasculature within normal limits. Fine interstitial prominence is noted. No consolidation or pleural effusion. ACDF hardware. IMPRESSION: Mild interstitial prominence may be chronic or could reflect bronchitis or asthma. No focal infiltrat e seen.
[2023-11-07] MEDS ORDERED: ACETAMINOPHEN TAB 325 MG TAB PO PRN (21:23)
[2023-11-07] MEDS ORDERED: ONDANSETRON 4 MG/2 ML VIAL IVP PRN (21:23)
[2023-11-07] MEDS ORDERED: ASPIRIN 325 MG TAB PO STA (21:23)
[2023-11-07] MEDS ORDERED: NALOXONE 0.4 MG/ML 1 ML VIAL IV PRN (21:23)
[2023-11-08 03:36] VITALS: TEMP 98
[2023-11-08] MEDS ORDERED: NITROGLYCERIN SL TABS 0.4 MG TAB SUBLINGUAL PRN (07:07)
[2023-11-08] MEDS ORDERED: PANTOPRAZOLE 40 MG TABLET PO SCH (07:30)
[2023-11-08] MEDS ORDERED: ASPIRIN 81 MG PO SCH (09:00)
[2023-11-08] MEDS ORDERED: lisinopriL 5 MG TAB PO SCH (09:00)
[2023-11-08] MEDS ORDERED: METOPROLOL TARTRATE 12.5 MG TAB PO SCH (09:00)
[2023-11-08] MEDS ORDERED: ATORVASTATIN 40 MG TAB PO SCH (09:00)
--- NOTE | 2023-11-08 09:42 | P.CRDCN ---
History of Present Illness Consult date: 11/08/23 Consult reason: chest pain History of present illness: HISTORY OF PRESENTING ILLNESS Patient is a 68-year-old male patient of Dr. Arredondo with history of coronary artery disease with prior PCI 2016 in 2019, preserved ejection fraction, hypertension, hyperlipidemia, prior tobacco abuse since quit, occasional marijuana use, diabetes mellitus type 2 . We have been asked to evaluate the patient for chest pain. Patient states that he was on the floor working on something and he went to stand up and everything started going dark and he became scared and purposely sat himself down on the floor. He states he had this another time when he had a stent done in 2021. Patient states he was feeling dizzy and his face was numb and it lasted only briefly. He now had subsequent to that some left neck and jaw pain that lasted for maybe about a min barrow and went away. It has briefly come back a couple times since. He complains of fluttering of his heart. He states he had an appointment scheduled with Dr. Arredondo yesterday at [facility] but while they were driving to the appointment he was healing and sensations again and he decided to go to the emergency center instead of his appointment. Now he states he has a strange sensation across his forehead. He denies having any change in his speech and no drooping of his face, no weakness of his extremities. No history of CVA. He states he checked his blood pressure yesterday and was initially normal but then was dropping. He states he is drinking about one cup of caffeine per day. He denies any alcohol use and no tobacco use. Patient is seen today in the emergency center waiting for a bed on the observation unit. EKG sinus rhythm with right bundle branch block, no acute ST changes Chest x-ray mild interstitial prominence may be chronic or could reflect bronchitis asthma. CBC is unremarkable. INR, CMP, and magnesium all within normal limits except for a glucose of 114. Troponin negative 3. Home cardiac medications: Aspirin 81 mg daily, Lisinopril 5 mg daily, Lopressor 12.5 mg twice daily, Nitrostat as needed, Crestor 20 g at bedtime, also on Rybelsus 7 mg daily, and metformin 500 mg daily Cardiac catheterization 05/2022 revealed patent stent in the LAD with mild disease, patent stent in left circumflex with mild disease, patent stent in the RCA with mild disease, normal LVEDP. PCI 12/2021 with successful stenting of the mid RCA and obtuse marginal Echocardiogram 05/26/2023: Normal LV size and systolic function. Mild tricuspid regurgitation. No pericardial effusion. Negative bubble study no shunt. REVIEW OF SYSTEMS At the time of my exam: CONSTITUTIONAL: Denies fever or chills. CARDIOVASCULAR: Denies chest pain, denies shortness of breath, no orthopnea, PND, +palpitations. RESPIRATORY: Denies cough. GASTROINTESTINAL: Denies abdominal pain, diarrhea, constipation, nausea or vomiting. MUSCULOSKELETAL: Denies myalgias. NEUROLOGIC: Denies numbness, tingling or weakness. ENDOCRINE: Denies fatigue, weight change, polydipsia or polyurina. GENITOURINARY: Denies burning, hematuria or urgency with micturation. HEMATOLOGIC: Denies history of anemia or bleeding. PHYSICAL EXAMINATION Vital signs reviewed. CONSTITUTIONAL: No apparent distress. HEENT: Head is normocephalic. Pupils are equal, round. Sclerae anicteric. Mucous membranes of the mouth are moist. No JVD. No carotid bruit. CHEST: Lungs are clear to auscultation. No chest wall tenderness is noted on palpation or with deep breathing. HEART: Regular rate and rhythm. S1, S2 heard. No murmurs, gallops or rub. ABDOMEN: Soft, nontender. EXTREMITIES: 2+ peripheral pulses, no lower extremity edema. NEUROLOGIC EXAMINATION: Patient is awake, alert and oriented x3. 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 Arredondo in 2 weeks. Thank you kindly for this consultation. Nurse practitioner note has been reviewed, I agree with the documented findings and plan of care. Patient was seen and examined. Past Medical History Past Medical History: Coronary Artery Disease (CAD), Chest Pain / Angina, Diabetes Mellitus, Hyperlipidemia, Hypertension Additional Past Medical History / Comment(s): N/V,Chronic NECK AND BACK PAIN, HX OF BROKEN NECK & BACK,mult hx bone fx's History of Any Multi-Drug Resistant Organisms: None Reported Past Surgical History: Heart Catheterization, Heart Catheterization With Stent, Hernia Repair, Orthopedic Surgery, Tonsillectomy Additional Past Surgical History / Comment(s): R thumb arthroplasty, Cervical vertebral crushed and surgically repaired, L foot spur removed, L knee arthroscopy, colonoscopy, bilateral eyelid surgery, left cataract removed, heart caths x2 with stents 2015 & 2018 , inguinal hernia x2, heart cath -no stents Past Anesthesia/Blood Transfusion Reactions: No Reported Reaction Additional Past Anesthesia/Blood Transfusion Reaction / Comment(s): no hx blood transfusion Date of Last Stent Placement:: 2018 Past Psychological History: Depression Smoking Status: Former smoker Past Alcohol Use History: Rare Past Drug Use History: Marijuana - Past Family History Father Family Medical History: Vascular Disorder Additional Family Medical History / Comment(s): Father had TB. He is . Mother Family Medical History: Diabetes Mellitus Additional Family Medical History / Comment(s): Mother had TB. She at age 75 yrs. Medications and Allergies Home Medications Medication Instructions Recorded Confirmed Type lisinopriL [Zestril] 5 mg PO DAILY 11/17/19 11/07/23 History Omeprazole 20 mg PO DAILY 01/06/22 11/07/23 History Semaglutide [Rybelsus] 7 mg PO DAILY 01/06/22 11/07/23 History metFORMIN HCL ER [Glucophage XR] 1,000 mg PO BID 01/07/22 11/07/23 History Metoprolol Tartrate [Lopressor] 12.5 mg PO BID 05/23/23 11/07/23 History Aspirin EC [Ecotrin Low Dose] 81 mg PO DAILY 11/07/23 11/07/23 History Loratadine [Claritin] 10 mg PO DAILY PRN 11/07/23 11/07/23 History Nitroglycerin Sl Tabs [Nitrostat] 0.4 mg SUBLINGUAL Q5M PRN 11/07/23 11/07/23 H istory Rosuvastatin [Crestor] 20 mg PO DAILY 11/07/23 11/07/23 History Allergies Allergy/AdvReac Type Severity Reaction Status Date / Time sucralfate AdvReac Nausea & Verified 11/07/23 23:04 Vomiting Physical Exam Vitals: Vital Signs Temp Pulse Resp BP Pulse Ox 11/08/23 03:27 98.0 F 54 L 16 114/71 97 11/08/23 03:00 54 L 15 114/71 98 11/08/23 02:00 51 L 14 110/72 97 11/08/23 01:00 52 L 18 113/69 96 11/08/23 00:00 55 L 16 105/66 98 11/07/23 23:00 58 L 16 111/70 97 11/07/23 22:12 60 18 113/75 98 11/07/23 15:23 97.9 F 62 18 131/73 99 Intake and Output 11/07/23 11/08/23 11/08/23 22:59 06:59 14:59 Other: Weight 93.894 kg Results 11/07/23 15:45 11/07/23 15:45 Cardiac Enzymes 11/07/23 11/07/23 11/08/23 Range/Units 15:45 15:45 00:21 AST 26 (17-59) U/L Troponin I <0.012 <0.012 (0.000-0.034) ng/mL 11/08/23 Range/Units 03:34 AST (17-59) U/L Troponin I <0.012 (0.000-0.034) ng/mL Coagulation 11/07/23 Range/Units 15:45 PT 11.0 (10.0-12.5) sec APTT 24.9 (22.0-30.0) sec CBC 11/07/23 Range/Units 15:45 WBC 8.7 (3.8-10.6) k/uL RBC 4.73 (4.30-5.90) m/uL Hgb 13.8 (13.0-17.5) gm/dL Hct 42.2 (39.0-53.0) % Plt Count 257 (150-450) k/uL Comprehensive Metabolic Panel 11/07/23 Range/Units 15:45 Sodium 141 (137-145) mmol/L Potassium 4.1 (3.5-5.1) mmol/L Chloride 106 (98-107) mmol/L Carbon Dioxide 23 (22-30) mmol/L BUN 16 (9-20) mg/dL Creatinine 0.86 (0.66-1.25) mg/dL Glucose 114 H (74-99) mg/dL Calcium 9.2 (8.4-10.2) mg/dL AST 26 (17-59) U/L ALT 18 (4-49) U/L Alkaline Phosphatase 78 (38-126) U/L Total Protein 6.5 (6.3-8.2) g/dL Albumin 4.0 (3.5-5.0) g/dL Current Medications Generic Name Dose Route Start Last Admin Trade Name Freq PRN Reason Stop Dose Admin Acetaminophen 650 mg 11/07/23 21:23 Acetaminophen Tab 325 Mg Tab PO Q6HR PRN Mild Pain or Fever > 100.5 Aspirin 81 mg 11/08/23 09:00 Aspirin 81 Mg PO DAILY [facility] Atorvastatin Calcium 40 mg 11/08/23 09:00 Atorvastatin 40 Mg Tab PO DAILY [facility] Lisinopril 5 mg 11/08/23 09:00 Lisinopril 5 Mg Tab PO DAILY [facility] Metoprolol Tartrate 12.5 mg 11/08/23 09:00 Metoprolol Tartrate 12.5 Mg Tab PO BID [facility] Naloxone HCl 0.2 mg 11/07/23 21:23 Naloxone 0.4 Mg/Ml 1 Ml Vial IV Q2M PRN Opioid Reversal Nitroglycerin 0.4 mg 11/08/23 07:07 Nitroglycerin Sl Tabs 0.4 Mg Tab SUBLINGUAL Q5M PRN Chest Pain Ondansetron HCl 4 mg 11/07/23 21:23 Ondansetron 4 Mg/2 Ml Vial IVP Q8HR PRN Nausea And Vomiting Pantoprazole Sodium 40 mg 11/08/23 07:30 Pantoprazole 40 Mg Tablet PO AC-[id number] [facility] Intake and Output 11/07/23 11/08/23 11/08/23 22:59 06:59 14:59 Other: Weight 93.894 kg 11/07/23 15:45 11/07/23 15:45
[2023-11-08 10:14] VITALS: BP 116/75; PULSE 64; RESP 15
--- NOTE | 2023-11-08 22:09 | P.HPIM ---
History of Present Illness H&P Date: 11/08/23 This is a 68 year old male with medical history of coronary artery disease patient has [address] diabetes mellitus, hypertension, hyperlipidemia, chronic neck and back pain, depression, remote history of smoking quit back in 1995, reports occasional marijuana use. Patient plans to e stablish care with Dr. Laurel Casanova office was seeing Dr De La Fuente prior. Comes in with complaints of presyncopal episode. States he was sitting on the ground working when he went to stand up he lost vision got dizzy and light headed felt like he was going to pass out. States he had a similar episode when he had his heart attack he came in to the ER for evaluation. He states he has been having some chest tightness on and off for the last week. No shortness of breath. No fever or chills. He did also complaint of fluttering in his chest. He states he checked his blood pressure yesterday and was initially normal but then was dropping. His initial blood work is unremarkable, glucose is 114. His troponins are negative x 3. He was admitted in observation with consult placed to cardiology. Ekg reveals normal sinus rhythm with heart rate of 61, and findings of right bundle branch block. Chest xray is showing mild interstitial prominence may be chronic or could reflect bronchitis or asthma. No focal infiltrate seen. REVIEW OF SYSTEMS: CONSTITUTIONAL: No fever, no malaise, no fatigue. HEENT: No recent visual problems or hearing problems. Denied any sore throat. CARDIOVASCULAR: No chest pain, orthopnea, PND, no palpitations, no syncope. PULMONARY: No shortness of breath, no cough, no hemoptysis. GASTROINTESTINAL: No diarrhea, no nausea, no vomiting, no abdominal pain. NEUROLOGICAL: No headaches, no weakness, no numbness. HEMATOLOGICAL: Denies any bleeding or petechiae. GENITOURINARY: Denies any burning micturition, frequency, or urgency. MUSCULOSKELETAL/RHEUMATOLOGICAL: Denies any joint pain, swelling, or any muscle pain. ENDOCRINE: Denies any polyuria or polydipsia. The rest of the 14-point review of systems is negative. PHYSICAL EXAMINATION: GENERAL: The patient is alert and oriented x3, not in any acute distress. Well developed, well nourished. HEENT: Pupils are round and equally reacting to light. EOMI. No scleral icterus. No conjunctival pallor. Normocephalic, atraumatic. No pharyngeal erythema. No thyromegaly. CARDIOVASCULAR: S1 and S2 present. No murmurs, rubs, or gallops. PULMONARY: Chest is clear to auscultation, no wheezing or crackles. ABDOMEN: Soft, nontender, nondistended, normoactive bowel sounds. No palpable organomegaly. MUSCULOSKELETAL: No joint swelling or deformity. EXTREMITIES: No cyanosis, clubbing, or pedal edema. NEUROLOGICAL: Gross neurological examination did not reveal any focal deficits. SKIN: No rashes. Assessment Presyncopal episode possibly from orthostatic hypotension Normotensive blood pressure maintained on lisinopril which cardiology has recommended to hold at this time and monitor BP Gastroesophageal reflux disease Coronary artery disease with prior PCI Hypertension Diabetes Mellitus type 2 History of thyroid nodule Full Code Plan Patient has been recommending to stop lisinopril at this time and monitor blood pressure on an outpatient basis Cardiology recommending for patient to wear an event monitor and will be picked up from the cardiology office today Recommending to establish care at new PCP office. TSH has been checked and normal limits at this time patient states he needs help with management of his blood glucose and monitoring of the thyroid nodule information given for endocrinology. Wound also recommend to continue to monitor blood glucose and monitor for any hypoglycemic episodes and notify provider. Patient is continued on all same home medications which have been reviewed including metformin, rosuvastatin, omeprazole, rybelsus. Medically patient can be discharged home recommending close follow up with cardiology. The impression and plan of care has been dictated by Salima Durand, Nurse Practitioner as directed. Dr. Rob MD I have performed a history and physical examination and medical decision making of this patient, discussed the same with the dictator, and agree with the dictators assessment and plan as written, documented as a scribe. Based on total visit time, I have performed more than 50% of this visit. Past Medical History Past Medical History: Coronary Artery Disease (CAD), Chest Pain / Angina, Diabetes Mellitus, Hyperlipidemia, Hypertension Additional Past Medical History / Comment(s): N/V,Chronic NECK AND BACK PAIN, HX OF BROKEN NECK & BACK,mult hx bone fx's History of Any Multi-Drug Resistant Organisms: None Reported Past Surgical History: Heart Catheterization, Heart Catheterization With Stent, Hernia Repair, Orthopedic Surgery, Tonsillectomy Additional Past Surgical History / Comment(s): R thumb arthroplasty, Cervical vertebral crushed and surgically repaired, L foot spur removed, L knee arthroscopy, colonoscopy, bilateral eyelid surgery, left cataract removed, heart caths x2 with stents 2015 & 2018 , inguinal hernia x2, heart cath -2021-no stents Past Anesthesia/Blood Transfusion Reactions: No Reported Reaction Additional Past Anesthesia/Blood Transfusion Reaction / Comment(s): no hx blood transfusion Date of Last Stent Placement:: 2018 Past Psychological History: Depression Smoking Status: Former smoker Past Alcohol Use History: Rare Past Drug Use History: Marijuana - Past Family History Father Family Medical History: Vascular Disorder Additional Family Medical History / Comment(s): Father had TB. He is . Mother Family Medical History: Diabetes Mellitus Additional Family Medical History / Comment(s): Mother had TB. She at age 75 yrs. Medications and Allergies Home Medications Medication Instructions Recorded Confirmed Type Omeprazole 20 mg PO DAILY 01/06/22 11/07/23 History Semaglutide [Rybelsus] 7 mg PO DAILY 01/06/22 11/07/23 History metFORMIN HCL ER [Glucophage XR] 1,000 mg PO BID 01/07/22 11/07/23 History Metoprolol Tartrate [Lopressor] 12.5 mg PO BID 05/23/23 11/07/23 History Aspirin EC [Ecotrin Low Dose] 81 mg PO DAILY 11/07/23 11/07/23 History Loratadine [Claritin] 10 mg PO DAILY PRN 11/07/23 11/07/23 History Nitroglycerin Sl Tabs [Nitrostat] 0.4 mg SUBLINGUAL Q5M PRN 11/07/23 11/07/23 History Rosuvastatin [Crestor] 20 mg PO DAILY 11/07/23 11/07/23 History Allergies Allergy/AdvReac Type Severity Reaction Status Date / Time sucralfate AdvReac Nausea & Verified 11/07/23 23:04 Vomiting Physical Exam Vitals: Vital Signs Temp Pulse Resp BP Pulse Ox 11/08/23 03:27 98.0 F 54 L 16 114/71 97 11/08/23 03:00 54 L 15 114/71 98 11/08/23 02:00 51 L 14 110/72 97 11/08/23 01:00 52 L 18 113/69 96 11/08/23 00:00 55 L 16 105/66 98 11/07/23 23:00 58 L 16 111/70 97 11/07/23 22:12 60 18 113/75 98 11/07/23 15:23 97.9 F 62 18 131/73 99 Intake and Output 11/07/23 11/08/23 11/08/23 22:59 06:59 14:59 Other: Voiding Method Toilet Weight 93.894 kg Results CBC & Chem 7: 11/07/23 15:45 11/07/23 15:45 Labs: Abnormal Lab Results - Last 24 Hours (Table) 11/07/23 Range/Units 15:45 Glucose 114 H (74-99) mg/dL Assessment and Plan Time with Patient: Less than 30
--- NOTE | 2023-11-08 22:13 | P.DS ---
Providers Date of admission: 11/07/23 21:24 Attending physician: Jerry Rocha Consults: 11/07/23 21:23 Consult Physician Routine Consulting Provider: Daja Arredondo Consult Reason/Comments: CP, hx of CAD Do you want consulting provider notified?: Yes Primary care physician: Laurel High [facility] Course: Final Diagnosis Presyncopal episode possibly from orthostatic hypotension Normotensive blood pressure maintained on lisinopril which cardiology has recommended to hold at this time and monitor BP Gastroesophageal reflux disease Coronary artery disease with prior PCI Hypertension Diabetes Mellitus type 2 History of thyroid nodule Full Code Discharge Disposition Patient is stable for discharge home. Has been cleared by cardiology. Will be receiving an event monitor today at [facility]. Patient has been recommending to stop lisinopril at this time and monitor blood pressure on an outpatient basis. Recommend to continue to monitor blood glucose and monitor for any hypoglycemic episodes and notify provider. Patient is continued on all same home medications which have been reviewed including metformin, rosuvastatin, omeprazole, rybelsus. Recommending to establish care at new PCP office. Recommend close follow up with Dr Arredondo Hospital Course This is a 68 year old male with medical history of coronary artery disease patient has [address]., diabetes mellitus, hypertension, hyperlipidemia, chronic neck and back pain, depression, remote history of smoking quit back in 1995, reports occasional marijuana use. Patient plans to establish care with Dr. Laurel Casanova office was seeing Dr De La Fuente prior. Comes in with complaints of presyncopal episode. States he was sitting on the ground working when he went to stand up he lost vision got dizzy and light headed felt like he was going to pass out. States he had a similar episode when he had his heart attack he came in to the ER for evaluation. He states he has been having some chest tightness on and off for the last week. No shortness of breath. No fever or chills. He did also complaint of fluttering in his chest. He states he checked his blood pressure yesterday and was initially normal but then was dr gomez. His initial blood work is unremarkable, glucose is 114. His troponins are negative x 3. He was admitted in observation with consult placed to cardiology. Ekg reveals normal sinus rhythm with heart rate of 61, and findings of right bundle branch block. Chest xray is showing mild interstitial prominence may be chronic or could reflect bronchitis or asthma. No focal infiltrate seen. Cardiology recommending for an outpatient event monitor. He has had normotensive blood pressure while inpatient and lisinopril will be discontinued to avoid any episodes of orthostatic hypotension causing the presyncope. He will follow up with Dr Laurel Casanova office to establish care. No chest pain, no shortness of breath. No further episodes of dizziness or lightheadedness. Cleared by cardiology. Discharged home. Please see medication reconciliation for a list of current medications. Thank you for allowing us to participate in the care of this patient. The impression and plan of care has been dictated by Salima Durand, Nurse Practitioner as directed. Dr. Rob MD I have performed a history and physical examination and medical decision making of this patient, discussed the same with the dictator, and agree with the dictators assessment and plan as written, documented as a scribe. Based on total visit time, I have performed more than 50% of this visit. Patient Condition at Discharge: Stable Plan - Discharge Summary Discharge Rx Participant: No New Discharge Prescriptions: Continue Semaglutide [Rybelsus] 7 mg PO DAILY metFORMIN HCL ER [Glucophage XR] 1,000 mg PO BID Metoprolol Tartrate [Lopressor] 12.5 mg PO BID Aspirin EC [Ecotrin Low Dose] 81 mg PO DAILY Rosuvastatin [Crestor] 20 mg PO DAILY Omeprazole 20 mg PO DAILY Loratadine [Claritin] 10 mg PO DAILY PRN PRN Reason: Allergy Symptoms Nitroglycerin Sl Tabs [Nitrostat] 0.4 mg SUBLINGUAL Q5M PRN PRN Reason: Chest Pain Discontinued lisinopriL [Zestril] 5 mg PO DAILY Discharge Medication List Omeprazole 20 mg PO DAILY 01/06/22 [History] Semaglutide [Rybelsus] 7 mg PO DAILY 01/06/22 [History] metFORMIN HCL ER [Glucophage XR] 1,000 mg PO BID 01/07/22 [History] Metoprolol Tartrate [Lopressor] 12.5 mg PO BID 05/23/23 [History] Aspirin EC [Ecotrin Low Dose] 81 mg PO DAILY 11/07/23 [History] Loratadine [Claritin] 10 mg PO DAILY PRN 11/07/23 [History] Nitroglycerin Sl Tabs [Nitrostat] 0.4 mg SUBLINGUAL Q5M PRN 11/07/23 [History] Rosuvastatin [Crestor] 20 mg PO DAILY 11/07/23 [History] Follow up Appointment(s)/Referral(s): Daja Arredondo MD [STAFF PHYSICIAN] - 2 Weeks Koby Robin MD [REFERRING] - 1 Week Laurel High MD [Primary Care Provider] - 1-2 days Vee Dejesus [STAFF PHYSICIAN] - 1 Week Patient Instructions/Handouts: Chest Pain (DC) Activity/Diet/Wound Care/Special Instructions: Patient may flower buncher or picker event monitor at [facility] between 1:30 and 4 PM today. Recommend to monitor blood glucose and keep log report any hypoglycemic episodes to PCP. Dr Lashell Robin and Dr. Marge Dejesus are the endocrinologists in [facility]. Discharge Disposition: HOME SELF-CARE
== END 2023-11-08 14:00 | disposition home or self-care (01) ==
LOC: EC 15:17 → 6NMEDSUR 21:24
PROVIDERS: ADMIT Hospitalist; ATTEND Hospitalist
DX: R55 Syncope and collapse (principal); R06.09 Other forms of dyspnea; R00.2 Palpitations; R42 Dizziness and giddiness; I25.10 Atherosclerotic heart disease of native coronary artery without angina pectoris; E11.9 Type 2 diabetes mellitus without complications; E78.5 Hyperlipidemia, unspecified; F32.A Depression, unspecified; K21.9 Gastro-esophageal reflux disease without esophagitis; I10 Essential (primary) hypertension; G89.29 Other chronic pain; M54.2 Cervicalgia; M54.9 Dorsalgia, unspecified; Z87.891 Personal history of nicotine dependence; Z95.5 Presence of coronary angioplasty implant and graft; Z79.82 Long term (current) use of aspirin; Z79.84 Long term (current) use of oral hypoglycemic drugs; Z79.899 Other long term (current) drug therapy
CPT/HCPCS: 99285; 36415; 93005; 80053; 84443; 83735; 84484 ×2; 85025; 85610; 85730; 71046; G0378 ×2

== ENCOUNTER → 2023-11-23 | Outpatient (CLI) | payer MEDICARE ==
[2023-11-23 17:57] LABS: African American GFR (CKD) >90 (>60 ml/min/1.73 sqM); Blood Urea Nitrogen 18 mg/dL (9-20); Non-African American GFR(CKD) 84 (>60 ml/min/1.73 sqM)
--- NOTE | 2023-11-24 11:22 | CT ---
EXAMINATION TYPE: CT abdomen pelvis w con CT DLP: 1384.5 mGycm, Automated exposure control for dose reduction was used. DATE OF EXAM: 11/23/2023 7:41 PM COMPARISON: CT abdomen pelvis most recent from 12/03/2021 CLINICAL INDICATION:Male, 68 years old with history of R10.31 Right lower quadrant pain-appendicitis; RLQ abdominal pain TECHNIQUE: Axial CT abdomen pelvis w con;Sagittal and coronal reformats were created on a separate w orkstation. Contrast used:100 mL of Isovue 300 with IV Contrast, (none if empty) Oral contrast used: with Oral Contrast (none if empty) FINDINGS: LOWER CHEST: Atherosclerosis of the coronary arteries is mild to moderate. ABDOMEN LIVER: Unremarkable GALLBLADDER AND BILE DUCTS: The gallbladder is surgically absent. PANCREAS: Unremarkable. SPLEEN: Unremarkable. ADRENAL GLANDS: Unremarkable. KIDNEYS AND URETERS: No evidence of hydronephrosis or renal calculus. The ureters are unremarkable. PELVIS BLADDER: Unremarkable REPRODUCTIVE: Prostate is enlarged in size measuring 5.2 cm in transverse dimension. ABDOMEN & PELVIS STOMACH AND BOWEL: No evidence of bowel obstruction. The appendix is normal. Scattered colonic divert icula. PERITONEUM/RETROPERITONEUM: No evidence of pneumoperitoneum or free fluid. VASCULATURE: Mild atherosclerotic calcifications are present throughout the abdominal aorta and its b ranches. No evidence of aortic aneurysm. MUSCULOSKELETAL: No acute osseous abnormalities, degeneration changes of the sacroiliac joints with a nkylosis of the joints right greater than left. Mild degeneration changes of the spine with osteophyt es and facet joint arthropathy. LYMPH NODES: No gross evidence for lymphadenopathy. SOFT TISSUE/ABDOMINAL WALL: Anchors are seen along the right lower quadrant anterior abdominal wall w ith mesh in place. Mesh appears in appropriate position. IMPRESSION: 1. No evidence for acute process. Right lower quadrant hernia mesh appears within normal limits. The appendix is normal. No evidence for obstructive uropathy or renal calculus. 2. Colonic diverticulosis. 3. Prostatomegaly, correlate with serum PSA. 4. Ankylosis of the sacroiliac joints right greater than left.
== END | disposition home or self-care (01) ==
LOC: RADCTMAIN 17:06
PROVIDERS: ATTEND Family Medicine
DX: K57.30 Diverticulosis of large intestine without perforation or abscess without bleeding (principal); N40.0 Benign prostatic hyperplasia without lower urinary tract symptoms; M24.659 Ankylosis, unspecified hip; Z97.8 Presence of other specified devices
CPT/HCPCS: 82565; 84520; 74177; 36415; Q9967

== ENCOUNTER → 2024-02-07 | Outpatient (CLI) | payer MEDICARE ==
--- NOTE | 2024-02-08 08:07 | US ---
EXAMINATION TYPE: US abdomen complete DATE OF EXAM: 02/07/2024 COMPARISON: Correlation CT 11/23/2023 CLINICAL INDICATION: Male, 68 years old with history of R10.11 ABDOMINAL PAIN, RUQ; GB removed x 1 ye ar ago. Patient states he has been having pain ever since his surgery. TECHNIQUE: Multiple sonographic images of the abdomen are obtained. FINDINGS: EXAM MEASUREMENTS: Liver Length: 17.1 cm CBD: 0.5 cm Spleen: 10.5 cm Right Kidney: 9.9 x 6.1 x 4.8 cm Left Kidney: 10.6 x 5.2 x 5.5 cm PULL WORKER NOTES: Suboptimal due to overlying bowel gas Pancreas: Suboptimal visualization of the pancreatic head and tail due to shadowing from bowel gas. Questionable 1 cm hypoechoic area along the junction of the pancreatic tail and body. Reassess on fol low-up. Liver: No discrete mass or lesion seen Gallbladder: Surgically absent Evidence for sonographic Uribe's sign: neg CBD: wnl Spleen: Limited due to lung shadowing Right Kidney: No hydronephrosis or masses seen. Hypoechoic rim seen adjacent to kidney, suggesting some minimal perinephric edema which may reflect chronic kidney disease or senescent change. Clini ángel correlate. Left Kidney: No hydronephrosis or masses seen. Hypoechoic rim seen adjacent to kidney as on the othe r side. Upper IVC: limited visualization Abd Aorta: Proximal obscured by overlying bowel gas IMPRESSION: 1. Questionable subtle 1 cm hypoechoic lesion at the junction of the pancreatic body and tail versus artifact. Recommend three-month follow-up pancreas CT to reassess this area. Correlate with CA19-9 le rodolfo in the meanwhile. 2. Status post cholecystectomy. No biliary ductal dilatation. 3. Borderline hepatomegaly at 17.1 cm.
== END | disposition home or self-care (01) ==
LOC: RADUSWWP 07:54
PROVIDERS: ATTEND Internal Medicine
DX: R16.0 Hepatomegaly, not elsewhere classified (principal); Z90.49 Acquired absence of other specified parts of digestive tract
CPT/HCPCS: 76700

== ENCOUNTER → 2024-02-19 | Outpatient (CLI) | payer MEDICARE ==
--- NOTE | 2024-02-19 20:55 | MR ---
MRI pancreas HISTORY: Questionable mass in the tail the pancreas based on prior ultrasound. COMPARISON: None. TECHNIQUE: Multiecho multiplanar images of the upper abdomen and pancreas are obtained with and witho ut contrast serial delayed postcontrast imaging was obtained. FINDINGS: There is no pancreatic mass, cyst or pathological enhancement. The pancreas appears mildly atrophic. There is no pancreatic ductal dilatation. There is surgical absence of the gallbladder. No focal masses are seen within the liver, spleen and adrenal glands. Visualized bowel loops are normal and there is no dilatation or obstruction. No inflammatory changes identified in the bowel wall. There is no inflammatory changes within the visualized mesentery. There is no solid renal mass or process. Caliber of the abdominal aorta is normal. IMPRESSION: No significant abnormality seen. Specifically there is no pancreatic mass, cyst or pathological enhan cement.
== END | disposition home or self-care (01) ==
LOC: RADMRIMAIN 18:11
PROVIDERS: ATTEND Internal Medicine
DX: K86.89 Other specified diseases of pancreas (principal); Z90.49 Acquired absence of other specified parts of digestive tract
CPT/HCPCS: 74183; A9585

== ENCOUNTER → 2024-02-22 | Outpatient (CLI) | payer MEDICARE ==
[2024-02-22 10:30] LABS: Basophils % (A) 0 %; Eosinophils # (A) 0.2 k/uL (0-0.7); Eosinophils % (A) 2 %; HCT 46.9 % (39.0-53.0); HGB 14.6 gm/dL (13.0-17.5); Lymphocytes # (A) 1.7 k/uL (1.0-4.8); Lymphocytes % (A) 21 %; MCH 28.7 pg (25.0-35.0); MCHC 31.2 g/dL (31.0-37.0); MCV 92.2 fL (80.0-100.0); Mean Platelet Volume 7.2; Monocytes # (A) 0.7 k/uL (0-1.0); Monocytes % (A) 8 %; Neutrophils # (A) 5.4 k/uL (1.3-7.7); Neutrophils % (A) 67 %; Platelet Count 286 k/uL (150-450); RBC 5.09 m/uL (4.30-5.90); RDW 13.3 % (11.5-15.5)
[2024-02-22 10:37] LABS: ALT 19 U/L (4-49); AST 24 U/L (17-59); African American GFR (CKD) >90 (>60 ml/min/1.73 sqM); Albumin/Globulin Ratio 1.5; Alkaline Phosphatase 92 U/L (38-126); Anion Gap 7 mmol/L; Blood Urea Nitrogen 16 mg/dL (9-20); Calcium 9.1 mg/dL (8.4-10.2); Carbon Dioxide 28 mmol/L (22-30); Chloride 104 mmol/L (98-107); Globulin 2.7 g/dL; Glucose 141 mg/dL (74-99); Lipase 57 U/L (23-300); Non-African American GFR(CKD) 87 (>60 ml/min/1.73 sqM); Potassium 4.5 mmol/L (3.5-5.1); Sodium 139 mmol/L (137-145); Total Bilirubin 0.8 mg/dL (0.2-1.3); Total Protein 6.7 g/dL (6.3-8.2)
--- NOTE | 2024-02-22 12:21 | CT ---
EXAMINATION TYPE: CT abdomen pelvis w con CT DLP: 1416 mGycm, Automated exposure control for dose reduction was used. DATE OF EXAM: 02/22/2024 11:49 AM COMPARISON: CT abdomen pelvis most recent from CLINICAL INDICATION:Male, 68 years old with history of R10.32 LLQ pain; LLQ pain TECHNIQUE: Axial CT abdomen pelvis w con;Sagittal and coronal reformats were created on a separate w orkstation. Contrast used:100 mL of Isovue 300 with IV Contrast, (none if empty) Oral contrast used: with Oral Contrast (none if empty) FINDINGS: LOWER CHEST: Unremarkable ABDOMEN LIVER: Unremarkable GALLBLADDER AND BILE DUCTS: Unremarkable. PANCREAS: Unremarkable. SPLEEN: Unremarkable. ADRENAL GLANDS: Unremarkable. KIDNEYS AND URETERS: No evidence of hydronephrosis or renal calculus. The ureters are unremarkable. PELVIS BLADDER: Unremarkable REPRODUCTIVE: Unremarkable. ABDOMEN & PELVIS STOMACH AND BOWEL: Stomach and duodenum are unremarkable. No evidence of bowel obstruction. PERITONEUM/RETROPERITONEUM: No evidence of pneumoperitoneum or free fluid. VASCULATURE: No evidence of aortic aneurysm. MUSCULOSKELETAL: No acute osseous abnormalities LYMPH NODES: No gross evidence for lymphadenopathy. SOFT TISSUE/ABDOMINAL WALL: Unremarkable IMPRESSION: 1. No CT evidence of acute process is appreciated.
== END | disposition home or self-care (01) ==
LOC: RADCTMAIN 09:48
PROVIDERS: ATTEND Internal Medicine
DX: R10.32 Left lower quadrant pain (principal)
CPT/HCPCS: 80053; 83690; 85025; 74177; 36415; Q9967

== ENCOUNTER → 2024-12-31 | Outpatient (CLI) | payer MEDICARE ==
[2024-12-31 09:05] VITALS: BP 133/80; PULSE 69; RESP 16; TEMP 97.3
--- NOTE | 2024-12-31 15:51 | P.PAINPG ---
PQRS Measure Charge Sheet Comment: HISTORY OF PRESENT ILLNESS: A 69 yr old male as a referral from Dr Rodrigues presents today w severe and chronic neck pain > 3 mo secondary to radiculopathy, spondylosis and facet arthropathy without myelopathy for evaluation. Pt states pain level is provoked at 10 /10 in intensity, intermittent, localized in the cervical spine, predominantly axial, sharp in character w occasional shooting pain towards the UEs. Pain is provoked by driving, rotation. Pain is alleviated by PT x 6 wks which ended in 2020, physician guided home stretches daily since 2020, heat, medications, topical, repositioning and rest . Cervical disability score at . PMH: OA, CAD, Angina, NIDDM II, Hyperlipidemia, HTN PSH: C5-C6 ACDF (2017), Heart Catheterization x5 With Stent (2015, 2018), Inguinal Hernia Repair x2, R Thumb Arthroplasty, L Arthroscopy, Tonsillectomy, L Cataract Resection, Blepharoplasty SH: Former tobacco user, Rare ETOH use, Cannabis use FH: Fa- PVD. Mo- DM All: See list Meds: See list incl Downs, Neurontin REVIEW OF ORGAN SYSTEMS: CONSTITUTIONAL: No fevers or chills. No recent weight loss. NEUROLOGICAL: + numbness and tingling along the distal extremities. No seizure disorders or headaches. MUSCULOSKELETAL: + pain PSYCHIATRIC: Denies current depression or suicidal thoughts. Physical Examinations : Constitutional : Cooperative , not in acute distress . Neurologic : Cranial nerve II to XII intact. No focal neurological deficits. Psychiatric : alert & oriented x 3. Matching mood & appropriate affect. Judgment & insight intact. Musculoskeletal : Cervical Spine Motor strength in the deltoid and biceps: Normal right side. Normal Left side Motor strength biceps and the wrist extensors: Normal right side . Normal left side Motor strength in the triceps muscle: Normal right side. Normal left side Deep tendon reflexes: Normal at the biceps. Normal at Brachioradialis. Normal at triceps Vertebral body tenderness to deep palpation over Cervical facet loading test: positive bilaterally Spurling test: positive bilaterally Neck distraction test: positive bilaterally Marlo sign: positive bilaterally Lumbar spine Motor strength lower extremities ,thigh and legs 5/5 Right side , 5/5 Left side Deep tendon reflexes : Normal Knee Jerk. Normal Ankle Jerk Vertebral body tenderness over C6 Munson Test positive BL C6-C7 Lumbar facet Loading Test: positive Right / positive Left Range of motion of the lumbar spine Flexion 30 degrees, extension 10 degrees Straight Leg Raise test: Left/ Right positive at degrees Lynn test: positive right / positive left. Severe tenderness over the Sacroiliac joint on the Right / Left sides Gaenslen test: positive bilaterally Seated flexion test: positive bilaterally. Sacral spine : Severe tenderness over the Sacroiliac joint: right side / left side Range of motion: Flexion of the lumbar spine <60 degrees Range of motion: Extension of the lumbar spine <20 degrees Gaenslen's Test positive Lynn test: positive right side / left side Thigh Thrust Test Sacral Thrust Test Imaging: CT non contrast cervical spine from 05/04/23 reviewed Assessment/ Plan : post C5-C6 ACDF, C6-C7 radiculopathy & facet arthropathy Recommendation of FITZ C6-C7 #1. Risks, benefits of procedure discussed and patient verbalized understanding. Admits to anti- coagulant use or medical history of diabetes. Protocol for discontinuation/ continuation of medications jose eduardo procedure discussed. Refrain from Cannabis while taking Downs 7.5/325 #18 NR Use, side effects, adverse reactions, safe storage discussed. Pt acknowledged understanding. All questions answered. I have spent greater than 30 minutes on patient care today. Dr Pretty was available by phone for the evaluation of this patient. The time was used to review the medical records including relevant urine studies and Prescription history (MAPs), review of the available imaging, evaluation and examination of t he patient, coordination of care with the medical staff and if applicable referring physicians, as well as creation of the medical record - Pain Location Bilateral Lower Neck Non-Pharmacological Interventions: Distraction, Physical Therapy, Position/Reposition Pharmacological Interventions: PRN Medication, Scheduled Medication, Topical Medication PQRS Narrative: Smoking Status Former smoker Home Medications: Ambulatory Orders Omeprazole 20 mg PO DAILY 01/06/22 Semaglutide [Rybelsus] 7 mg PO DAILY 01/06/22 metFORMIN HCL ER [Glucophage XR] 1,000 mg PO BID 01/07/22 Metoprolol Tartrate [Lopressor] 12.5 mg PO BID 05/23/23 Aspirin EC [Ecotrin Low Dose] 81 mg PO DAILY 11/07/23 Loratadine [Claritin] 10 mg PO DAILY PRN 11/07/23 Nitroglycerin Sl Tabs [Nitrostat] 0.4 mg SUBLINGUAL Q5M PRN 11/07/23 Rosuvastatin [Crestor] 20 mg PO DAILY 11/07/23 HYDROcodone/APAP 7.5-325MG [Downs 7.5-325] 1 tab PO Q4H PRN 3 Days #18 tab 12/31/24 Controlled Substance Measures - Controlled Substance Measures Is patient prescribed a controlled substance at discharge?: Yes When asked, does pt state using other controlled substances?: No If prescribed controlled substance>3 days was MAPS reviewed?: Prescribed <3 Days
== END ==
LOC: PNWHC3 08:30
PROVIDERS: ATTEND Specialist
DX: M47.22 Other spondylosis with radiculopathy, cervical region (principal); M43.22 Fusion of spine, cervical region; Z87.891 Personal history of nicotine dependence; Z88.8 Allergy status to other drugs, medicaments and biological substances
CPT/HCPCS: 99211

== ENCOUNTER → 2025-01-24 | Outpatient (CLI) | payer MEDICARE ==
[2025-01-24 07:05] LABS: African American GFR (CKD) 88 (>60 ml/min/1.73 sqM); Blood Urea Nitrogen 20 mg/dL (9-20); Non-African American GFR(CKD) 77 (>60 ml/min/1.73 sqM)
--- NOTE | 2025-01-24 07:59 | CT ---
EXAMINATION TYPE: CT cervical spine w con DATE OF EXAM: 01/24/2025 COMPARISON: Prior CT cervical spine May 24, 2023 HISTORY: UNSPECIFIED CORD COMPRESSION; chronic neck pain. CT DLP: 679.8 mGycm. Automated Exposure Control for Dose Reduction was Utilized. TECHNIQUE: CT scan of the cervical spine is obtained without contrast, axial images are obtained, sa gittal and coronal reformatted images are also reviewed. FINDINGS: Cervical spine is visualized in its entirety from C1 through upper thoracic levels, demonst rates stable and satisfactory alignment. Persistent anterior fusion plate with artificial disc materi al at C5-C6 level. Persistent moderate to severe disc space narrowing at C6-C7 level. No large history faculty member ior disc herniations are clearly seen. Vertebral body heights are maintained. No suspicious enhanceme nt. Review of axial images shows no significant spinal canal stenosis or neural foraminal narrowing at an y cervical level. Thyroid gland redemonstrates 2.0 cm rim calcified left-sided thyroid nodule axial i mage 83. Lung apices show no pneumothorax. IMPRESSION: No acute findings are seen. No cord compromise is noted. Postsurgical changes C5-C6 level redemonstrated with stable and satisfactory alignment. [facility], , 01/24/2025 7:56 AM
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
== END | disposition home or self-care (01) ==
LOC: RADCTMAIN 05:40
PROVIDERS: ATTEND Orthopaedic Surgery Orthopaedic Surgery of the Spine
DX: G95.20 Unspecified cord compression (principal); Z98.890 Other specified postprocedural states
CPT/HCPCS: 82565; 84520; 72126; 36415; 72156; Q9967; A9585